=== PATIENT | female | born 1975 | race Caucasian/White ===

== ENCOUNTER 2020-10-07 10:00 | Outpatient (REF) | payer OTHER, SELFPAY ==
[2020-10-08 18:56] LABS: EBV-NA IgG Index <18.00 U/mL; EBV-VCA IgM Ab <36.00 U/mL
== END 2020-10-07 10:01 | disposition home or self-care (01) ==
LOC: HO.MANLDS 10:00
PROVIDERS: PCP Physician Assistant; Visit Provider Physician Assistant
DX: R76.8 Other specified abnormal immunological findings in serum (principal)
CPT/HCPCS: 86664; 86665

== ENCOUNTER 2020-11-10 10:40 | Emergency (ER) | payer MEDICAID, SELFPAY ==
[2020-11-10 11:15] VITALS: BP 127/82; PULSE 63; RESP 16; TEMP 36.8; O2SAT 97; BMI 37.4
--- NOTE | 2020-11-10 11:30 | XR_ITS ---
EXAMINATION: XR ANKLE, RIGHT CLINICAL INFORMATION: Right ankle pain and swelling status post fall. COMPARISON: None TECHNIQUE: AP, lateral, and mortise views of the right ankle. FINDINGS: The ankle joint and mortise are intact. There is no acute fracture or dislocation. The tarsal bones are normally aligned. There is a very small plantar calcaneal spur. Mild soft tissue swelling is seen. XR/XR ankle RT min 3V IMPRESSION: Mild soft tissue swelling and very small plantar calcaneal spur. No overt acute underlying osseous abnormality.
--- NOTE | 2020-11-10 11:55 | ED.LOWEXIN ---
HPI - Extremity Injury (Lower) General Chief Complaint: Extremity Injury, Lower Stated Complaint: fall, ankle pain Time Seen by Provider: 11/10/20 11:30 Source: patient Mode of arrival: ambulatory Limitations: no limitations History of Present Illness HPI Narrative: 45 y/o female presenting with right ankle pain after slip and fall on [address]. She states she was carrying a 50 lb bag of pellets for her stove and she slipped on ice. She doesn't recall if she inverted or everted the ankle. She has had lateral ankle pain since with difficulty ambulating. She states the pain radiates up the side of her calf. She has been using ice, elevating when possible and taking Motrin without improvement. MD complaint: ankle injury Onset (ago): day(s) (5) Injury: Right: ankle Type of Injury: unknown Place: home Severity: moderate Severity scale (1-10): 6 Relieving factors: immobilization and rest Exacerbating factors: weight bearing, movement and palpation Context: fall Associated symptoms: swelling and able to partially bear weight Other symptoms: none Treatments prior to arrival: cold therapy and NSAIDS Related Data Home Medications Medication Instructions Recorded Confirmed Vitamin D3 11/10/20 Zoloft 11/10/20 Previous Rx's Medication Instructions Recorded ibuprofen 600 mg PO Q8H PRN #20 tab 11/10/20 oxycodone 5 mg PO Q6H PRN #8 tab 11/10/20 Allergies Allergy/AdvReac Type Severity Reaction Status Date / Time nut - unspecified Allergy Anaphylaxis Verified 11/10/20 11:21 Review of Systems Review of Systems: Constitutional: No Fever, No Chills Musculoskeletal: + joint pain, + Myalgias Skin: No Skin Lesions, No rash Neuro: No Weakness, No Numbness Psych: No Anxiety/Panic, No Depression Heme/Lymph: No Bruising PMFSH Past Medical History Attestation statement: The following information was validated with the patient. Medical History No known health problems Social History Social History Advance Directives: No Advance Directives Information Provided: No Physical Exam Vital Signs: Vital Signs: Last Vital Signs Temp 98.3 F 11/10/20 11:15 Pulse 63 11/10/20 11:15 Resp 16 11/10/20 11:15 BP 127/82 11/10/20 11:15 Pulse Ox 97 11/10/20 11:15 Body Mass Index 37.4 Appearance: Alert. Oriented X3. No acute distress. HEENT: normal inspection CVS: Normal heart rate and rhythm. Pulses normal. Respiratory: No respiratory distress. Skin: Skin warm and dry. Normal skin color. Normal skin turgor. No rashes. Extremities: right ankle with lateral swelling, no deformity. tenderness below lateral malleolus. cool to touch with 1+ DP pulse. NV intact distally. Poor dorsiflexion and plantar flexion due to pain. Neuro: Oriented X 3. No motor deficit. No sensory deficit. Course Course Course Narrative: 45 y/o female presenting with right ankle pain after slip on ice 5 days ago. XR pending to assess for fracture. Reevaluation(s) Reevaluation #1: XR negative for any acute fracture - mild soft tissue swelling with very small plantar calcaneal spur. Will place in MITESH wrap for comfort and give crutches as needed. Recommend follow up with Orthopedics if pain persists. Patient has been counseled and is stable for discharge. Critical Care Time Critical Care Time Critical Care Time: No Discharge Plan Discharge Clinical Impression: Ankle sprain and strain Patient Disposition: Home, Self-Care Instructions: Ankle Sprain (ED) Additional Instructions: Your x-ray today did not show any acute fractures. You may bear weight as tolerated. Use crutches as needed. Ice and elevate your ankle when possible. Follow up with Orthopedics if the pain persists. Follow up with your doctor this week. Prescriptions: New ibuprofen 600 mg tablet 600 mg PO Q8H PRN (Reason: pain) Qty: 20 RF: 0 oxycodone 5 mg tablet 5 mg PO Q6H PRN (Reason: pain) Qty: 8 RF: 0 No Action Vitamin D3 RF: 0 Zoloft RF: 0 Referrals: Wicho Stevens MD [Physician] - 1 week (ankle pain)
[2020-11-10] MEDS: Ibuprofen 600 MG TABLET PO (13:15)
[2020-11-10] MEDS: oxyCODONE HCl Immed Release 5 MG TABLET PO (13:15)
== END 2020-11-10 14:01 | disposition home or self-care (01) ==
PROVIDERS: Emergency Provider Emergency Medicine Emergency Medical Services; PCP Physician Assistant
DX: S93.401A Sprain of unspecified ligament of right ankle, initial encounter (principal); M25.571 Pain in right ankle and joints of right foot; W00.0XXA Fall on same level due to ice and snow, initial encounter; Y93.01 Activity, walking, marching and hiking; Y92.007 Garden or yard of unspecified non-institutional (private) residence as the place of occurrence of the external cause; Y99.9 Unspecified external cause status
CPT/HCPCS: 73610; 99283

== ENCOUNTER 2021-06-04 14:08 | Outpatient (REF) | payer MEDICAID, SELFPAY ==
[2021-06-04 17:45] LABS: Hematocrit 44.4 % (37-47); Hemoglobin 14.9 g/dl (12.0-16.0); Mean Corpuscular HGB Conc 33.6 g/dl (31.0-35.0); Mean Corpuscular Hemoglobin 30.7 pg (27.0-33.0); Mean Corpuscular Volume 91.5 fL (80-98); Mean Platelet Volume 10.1 fL (9.4-12.3); Platelet Count 295 X10*3/uL (160-400); Red Blood Count 4.85 X10*6/uL (4.20-5.50); Red Cell Distribution Width 13.3 % (11.0-16.0); White Blood Count 11.4 X10*3/uL (4.8-10.8)
[2021-06-04 17:57] LABS: Alanine Aminotransferase 32 U/L (0-31); Albumin Level 4.3 g/dL (3.5-5.0); Alkaline Phosphatase 75 U/L (39-117); Anion Gap 13 (12-20); Aspartate Amino Transferase 20 U/L (5-31); Bilirubin Total 0.3 mg/dL (0.0-1.0); Blood Urea Nitrogen 11 mg/dL (9-16); Calcium 9.4 mg/dL (8.4-10.2); Carbon Dioxide 27 mmol/L (22-29); Chloride 104 mmol/L (96-108); Estimated Glomerular Filt Rate > 60; Glucose Random 115 mg/dL (60-115); Potassium 4.8 mmol/L (3.3-5.1); Sodium 139 mmol/L (135-145); Total Protein 7.4 g/dL (6.5-8.0)
[2021-06-04 18:17] LABS: Thyroid Stimulating Hormone 0.67 uIU/mL (0.32-4.0); Vitamin D 25-OH Total 38.5 ng/mL (>30)
== END 2021-06-04 14:09 | disposition home or self-care (01) ==
LOC: HO.MANLDS 14:08
PROVIDERS: PCP Internal Medicine; Visit Provider Internal Medicine
DX: F32.9 Major depressive disorder, single episode, unspecified (principal)
CPT/HCPCS: 36415; 80053; 82306; 84443; 85027

== ENCOUNTER 2021-07-06 09:41 | Outpatient (REF) | payer MEDICAID, SELFPAY ==
--- NOTE | ~2021-07-06 | MM_ITS ---
EXAMINATION: MM SCREENING DIGITAL BREAST TOMOSYNTHESIS, BILATERAL CLINICAL INFORMATION: Screening. Asymptomatic. The lifetime risk of breast cancer based on the Tyrer-Cuzick Model is 12%. COMPARISON: Mammography: 06/18/2020 (baseline) TECHNIQUE: Digital breast tomosynthesis is performed in both the craniocaudal and mediolateral oblique views along with computer-aided detection (CAD). Synthesized 2D images are generated from the tomosynthesis. FINDINGS: There are scattered areas of fibroglandular density (ACR BI-RADS breast composition Category b). There are no significant masses, abnormal calcifications, or other abnormalities. Incidental low right axillary tail node again seen right MLO view. The skin contours are smooth. No significant changes. MM/MM tomosynthesis screening BI IMPRESSION: No mammographic evidence of malignancy. ASSESSMENT: BI-RADS 1: Negative RECOMMENDATION: Routine annual mammography screening. This patient's information was entered into a reminder system with a target due date for their next mammogram.
== END 2021-07-06 09:42 | disposition home or self-care (01) ==
LOC: HO.MAMMO 09:41
PROVIDERS: Visit Provider Internal Medicine
DX: Z12.31 Encounter for screening mammogram for malignant neoplasm of breast (principal)
CPT/HCPCS: 77063; 77067

== ENCOUNTER 2021-09-16 08:03 | Emergency (ER) | payer MEDICAID, SELFPAY ==
--- NOTE | ~2021-09-16 | US_ITS ---
EXAMINATION: US VENOUS WITH DOPPLER UPPER EXTREMITY, LEFT CLINICAL INFORMATION: Axillary and arm pain after receiving Moderna vaccine. COMPARISON: No similar priors. TECHNIQUE: Ultrasound of the upper extremity is performed using compression sonography and color and pulse Doppler flow with assessment of augmentation of flow. There is also imaging and Doppler assessment of the jugular and subclavian veins. Spectral analysis with color-flow imaging is performed. FINDINGS: Respiratory variation, normal compression, and augmented flow are noted throughout the upper extremity including the axillary and brachial veins. There is normal flow in the internal jugular and subclavian veins. There is no visible deep or superficial thrombophlebitis. There are a few enlarged left axillary lymph nodes, the largest measuring 1.4 x 1.2 x 1.5 cm. These lymph nodes demonstrate preserved fatty hilum and are likely reactive in nature. If the patient's symptoms progress, a followup ultrasound in 5 -7 days might be of value to exclude proximal propagation from a nonvisualized distal arm vein. US/US venous duplex UE LT IMPRESSION: No DVT demonstrated in the visualized veins of the left upper extremity. Of note, the radial and ulnar veins of the forearm were not evaluated in this study. There are several enlarged left axillary lymph nodes which are likely reactive in the setting of recent vaccine. If symptoms progress or pain persists, consider a follow-up ultrasound in 5-7 days.
[2021-09-16 08:13] VITALS: BP 135/81; PULSE 66; RESP 18; TEMP 36.8; O2SAT 99; BMI 37.4
--- NOTE | 2021-09-16 08:55 | ED_ITS ---
HPI - Extremity Problem General Chief complaint: Skin/Abscess/Foreign Body Stated complaint: L ARM AND ARM PIT AND BEAST INFLAMED Time Seen by Provider: 09/16/21 08:46 Source: patient Mode of arrival: ambulatory Limitations: no limitations History of Present Illness HPI Narrative: 46-year-old female with no significant past medical history presenting to the ED with complaints of left axillary/arm pain after she r eceived the Moderna will start vaccine on Monday. She reports that the pain is radiating down to her left forearm. She reports that it is very severe at the left armpit and this morning she noticed that she had some redness in her armpit. She reports she was fully vaccinated with the Pzifer vaccine a few months ago and she had many adverse effects from it but nothing like what she is experiencing for the past 3 days. She denies any fevers, chills, dizziness, headaches, chest pain or shortness of breath, dyspnea on exertion, orthopnea, palpitations, history of DVT or PE, recent surgery, recent immobilization, recent travel and a long plane/train/car ride, any estrogen usage, PVD disease, recent illness, history of gout or any other symptoms complaints concerns at this time. MD Complaint: extremity pain Onset (ago): day(s) (Three days) Pain Consistency: constant Location: left and upper extremity Severity scale (1-10): >10 Quality: aching and constant Radiation: distal Relieving factors: nothing Exacerbating factors: range of motion and palpation Associated symptoms: denies other symptoms Context: other (She received the booster for the maternal on Monday and since then has been having the symptoms) Related Data Home Medications Medication Instructions Recorded Confirmed Vitamin D3 11/10/20 Zoloft 11/10/20 Previous Rx's Medication Instructions Recorded ibuprofen 600 mg tablet 600 mg PO Q8H PRN #20 tab 11/10/20 oxycodone 5 mg tablet 5 mg PO Q6H PRN #8 tab 11/10/20 cyclobenzaprine 10 mg tablet 10 mg PO Q8H PRN #14 tab 09/16/21 hydrocodone 5 mg-acetaminophen 325 1 tab PO Q8H PRN #14 tab 09/16/21 mg tablet ibuprofen 800 mg tablet 800 mg PO Q8H PRN #14 tab 09/16/21 Allergies Allergy/AdvReac Type Severity Reaction Status Date / Time naproxen Allergy Vomiting Verified 09/16/21 09:04 nut - unspecified Allergy Anaphylaxis Verified 11/10/20 11:21 Review of Systems Review of Systems: Constitutional : No Weight loss, No Fever, No Chills, No Night Sweats, No Fatigue, No Malaise ENT/Mouth : No Hearing loss, No Ear Pain, No Nasal Congestion, No Sinus Pain, No Hoarseness, No sore throat, No Rhinorrhea, No Swallowing Difficulty Eyes: No Eye Pain, No Swelling, No Redness, No Foreign Body, No Discharge, No Vision Changes Cardiovascular : No Chest Pain, No SOB, No Dyspnea on Exertion, No Orthopnea, No Edema, No Palpitations Respiratory : No Cough, No Sputum, No Wheezing, No Smoke Exposure, No Dyspnea Gastrointestinal : No Nausea, No Vomiting, No Diarrhea, No Constipation, No abdominal Pain, No Hematochezia, No Melena Genitourinary : no irregular bleeding, No Dysuria, No Urinary Frequency, No Hematuria, No Urinary Incontinence, No Urgency, No Flank Pain, No Urinary Flow Changes, No Hesitancy Musculoskeletal : + left axillary/arm pain radiating to left forearm, No Myalgias, No Joint Swelling Skin : No Skin Lesions, No rash Neuro : No Weakness, No Numbness, No Paresthesias, No Loss of Consciousness, No Dizziness, No Headache Psych : No Anxiety/Panic, No Depression, No SI/HI/AH/VH, No Social Issues, Heme/Lymph: No Bruising, No Bleeding,No Lymphadenopathy Endocrine : No Polyuria, No Polydipsia, No Temperature Intolerance Yes all other systems are reviewed and are negative [facility] Past Medical History Attestation statement: The following information was validated with the patient. Medical History No known health problems Social History Social History Advance Directives: No Advance Directives Information Provided: Yes Patient : No Physical Exam Vital Signs: Vital Signs: Last Vital Signs Temp 98.2 F 09/16/21 08:13 Pulse 66 09/16/21 08:13 Resp 18 09/16/21 08:13 BP 135/81 09/16/21 08:13 Pulse Ox 99 09/16/21 08:13 Body Mass Index 37.4 vital signs have been reviewed as normal and appeared to be correct. Blood pressure normal Heart rate normal. Respiration rate normal. Temperature normal. Oxygen saturation normal. Appearance: Alert. Oriented X3. No acute distress. Head: Normal external exam. Normocephalic. Atraumatic. Eyes: PERRLA. EOMI. Conjunctiva and sclera normal. Eyelids normal. ENT: Pharynx normal. Uvula midline. Moist mucous membranes. Neck: Normal inspection. Neck supple. FROM. CVS: Normal heart rate and rhythm. Respiratory: No respiratory distress. Painless inspiration. Skin: Skin warm and dry. Normal skin color. Normal skin turgor. No rashes/lesions/lacerations noted. Extremities: To left axillary patient has moderate tenderness palpation no obvious signs of infection no erythema/streaking/induration/fluctuance no lymphadenopathy noted on my exam. She has full range of motion of the left shoulder/forearm. She does have pain when I palpate down the arm to the forearm. No obvious ligamentous or tendon injury. No upper or lower extremity edema noted. Otherwise all other Extremities exhibit normal range of motion and nontender. Neuro: Oriented X 3. No motor deficit. No sensory deficit. Reflexes normal. Normal steady gait. No focal neuro deficits noted. Vascular: + radial pulses/+ 2 distal pedal pulses/+2 dorsalis pedis b/l. Normal cap refill. No cyanosis noted to upper extremity nails and lower extremity toes nails. Course Course Course Narrative: 9am - 46-year-old female with no significant past medical history presenting to the ED with complaints of left axillary/arm pain after she received the Moderna will start vaccine on Monday. She reports that the pain is radiating down to her left forearm. She reports that it is very severe at the left armpit and this morning she noticed that she had some redness in her armpit. She reports she was fully vaccinated with the Pzifer vaccine a few months ago and she had many adverse effects from it but nothing like what she is experiencing for the past 3 days. - On exam patient has tenderness palpation to left axillary radiating down to the left forearm and she does have reproducible tenderness she does have full range of motion no obvious ligamentous or tendon injury. No signs of infection. No upper extremity edema is noted. She has +2 radial pulses. Plan: Ultrasound of left upper extremity to evaluate for possible DVT and soft tissue ultrasound to evaluate for possible abscess or lymphadenopathy or any other acute processes. Although I believe this may be muscular in nature. Will provide symptomatic treatment with 500 mg naproxen, 5 mg of Beaver and 10 mg of Flexeril then re-evaluate. Reevaluation(s) Reevaluation #1: - ultrasound negative for DVT or abscess is only revealed reactive lymphadenopathy most likely related to the COVID vaccine she just received. Will DC home with symptomatic treatment instructions return if any new or worsening symptoms to follow up with primary care provider. Patient understands agrees with this plan. Time: 11:43 MDM - Extremity (Nontraumatic) Medical Records Attestation: I reviewed the patient's medical records. Lab Data Attestation: I reviewed the patient's lab results. Imaging Data Venous duplex ultrasound of left upper extremity and soft tissue of axillary area: Attestation: I personally reviewed and interpreted this imaging study as follows: Radiologist's impression: FINDINGS: Respiratory variation, normal compression, and augmented flow are noted throughout the upper extremity including the axillary and brachial veins. There is normal flow in the internal jugular and subclavian veins. There is no visible deep or superficial thrombophlebitis. There are a few enlarged left axillary lymph nodes, the largest measuring 1.4 x 1.2 x 1.5 cm. These lymph nodes demonstrate preserved fatty hilum and are likely reactive in nature. If the patient's symptoms progress, a followup ultrasound in 5 -7 days might be of value to exclude proximal propagation from a nonvisualized distal arm vein. US/US venous duplex UE LT IMPRESSION: No DVT demonstrated in the visualized veins of the left upper extremity. Of note, the radial and ulnar veins of the forearm were not evaluated in this study. ? There are several enlarged left axillary lymph nodes which are likely reactive in the setting of recent vaccine. ? If symptoms progress or pain persists, consider a follow-up ultrasound in 5-7 days. Discharge Plan Discharge Clinical Impression: Axillary lymphadenopathy, Adverse effect of COVID-19 vaccine Patient Disposition: Home, Self-Care Instructions: Lymphadenopathy (ED) Prescriptions: New cyclobenzaprine 10 mg tablet 10 mg PO Q8H PRN (Reason: Muscle spasm) Qty: 14 RF: 0 ibuprofen 800 mg tablet 800 mg PO Q8H PRN (Reason: pain) Qty: 14 RF: 0 hydrocodone-acetaminophen 5-325 mg tablet 1 tab PO Q8H PRN (Reason: pain) Qty: 14 RF: 0 No Action Vitamin D3 RF: 0 Zoloft RF: 0 ibuprofen 600 mg tablet 600 mg PO Q8H PRN (Reason: pain) Qty: 20 RF: 0 oxycodone 5 mg tablet 5 mg PO Q6H PRN (Reason: pain) Qty: 8 RF: 0 Referrals: Bryce Rolle MD [Primary Care Provider] - 2 days Print Language: Montenegrin
--- NOTE | 2021-09-16 09:09 | PC.NURSE ---
Pt states that she does not wish to take narcotics or muscle relaxers at this time as she does not have a ride and can be very sensitive to meds. She also has had vomiting woth naproxen in the past. Allergies updated and provider notified. Ibuprofen an tylenol ordered. Pt states that she does well with ibuprofen at home.
[2021-09-16] MEDS: Acetaminophen 325 MG TABLET 975 MG PO (09:14)
[2021-09-16] MEDS: Ibuprofen 800 MG TABLET PO (09:15)
== END 2021-09-16 11:58 | disposition home or self-care (01) ==
PROVIDERS: Emergency Provider Emergency Medicine; PCP Internal Medicine
DX: R59.0 Localized enlarged lymph nodes (principal); T50.B95A Adverse effect of other viral vaccines, initial encounter; Y92.9 Unspecified place or not applicable; M79.602 Pain in left arm
CPT/HCPCS: 93971; 99284

== ENCOUNTER 2021-11-17 10:26 | Emergency (ER) | payer MEDICAID, SELFPAY | END 2021-11-17 14:00 | disposition left against medical advice (07) | PROVIDERS: Emergency Provider Emergency Medicine; PCP Internal Medicine | DX: M79.646 Pain in unspecified finger(s) (principal) ==

== ENCOUNTER 2021-11-18 08:49 | Emergency (ER) | payer MEDICAID, SELFPAY ==
--- NOTE | ~2021-11-18 | XR_ITS ---
EXAMINATION: XR HAND, RIGHT CLINICAL INFORMATION: Swelling and pain mostly involving the first finger. COMPARISON: None TECHNIQUE: PA, lateral, and oblique views of the right hand. FINDINGS: There is no evidence of acute fracture or dislocation of the right hand. Right hand joint spaces are maintained. No erosive changes are evident. There is soft tissue prominence seen overlying the dorsum of the metacarpals. XR/XR hand RT min 3V IMPRESSION: No acute bony abnormality of the right hand identified. What appears to be edema overlying the dorsum of the metacarpals.
[2021-11-18 08:53] VITALS: BP 146/80; PULSE 66; RESP 18; TEMP 36.6; O2SAT 99; BMI 33.3
--- NOTE | 2021-11-18 09:10 | ED.EXTPRO ---
HPI - Extremity Problem General Chief complaint: Extremity Injury, Upper Stated complaint: fell on ice right hand pain Time Seen by Provider: 11/18/21 09:10 Source: patient Limitations: no limitations History of Present Illness HPI Narrative: Patient presents to the ER complaining of right hand pain after fall on the ice yesterday. Patient states she slipped and put her hand down on to a plant pot. Pain is 8/10 increased with palpation range of motion pain is located at the base of the thenar positive slight bruising has noticed. Pain is aching in nature no prior history or fractures to that extremity. Symptoms are [id number]. No other complaints Related Data Home Medications Medication Instructions Recorded Confirmed Vitamin D3 11/10/20 Zoloft 11/10/20 Previous Rx's Medication Instructions Recorded ibuprofen 600 mg tablet 600 mg PO Q8H PRN #20 tab 11/10/20 oxycodone 5 mg tablet 5 mg PO Q6H PRN #8 tab 11/10/20 cyclobenzaprine 10 mg tablet 10 mg PO Q8H PRN #14 tab 09/16/21 hydrocodone 5 mg-acetaminophen 325 1 tab PO Q8H PRN #14 tab 09/16/21 mg tablet ibuprofen 800 mg tablet 800 mg PO Q8H PRN #14 tab 09/16/21 Allergies Allergy/AdvReac Type Severity Reaction Status Date / Time naproxen Allergy Vomiting Verified 09/16/21 09:04 nut - unspecified Allergy Anaphylaxis Verified 11/10/20 11:21 Review of Systems Constitutional: Constitutional: Denies chills, Denies fever(s) and Denies frequent falls Eyes: Eyes: Denies diplopia Cardiovascular: Cardiovascular: Denies chest pain and Denies dyspnea Respiratory: Respiratory: Denies dyspnea Musculoskeletal: Musculoskeletal: Denies deformity Comments: Right hand pain Neurologic: Denies frequent falls [facility] Past Medical History Attestation statement: The following information was validated with the patient. Social History Social History Advance Directives: No Advance Directives Information Provided: No Physical Exam Vital Signs: Vital Signs: Last Vital Signs Temp 98 F 11/18/21 08:53 Pulse 66 11/18/21 08:53 Resp 18 11/18/21 08:53 BP 146/80 H 11/18/21 08:53 Pulse Ox 99 11/18/21 08:53 BMI result Body Mass Index 33.3 vital signs have been reviewed as normal and appeared to be correct. Blood pressure normal. Heart rate normal. Respiration rate normal. Temperature normal. Oxygen saturation normal. Appearance: Alert. Oriented X3. No acute distress. Head: Normal external exam. Normocephalic. Atraumatic. No Long signs noted. No raccoon eyes noted Eyes: PERRLA. EOMI ENT: Pharynx normal. Uvula midline. Moist mucous membranes. Neck: Soft full range of motion CVS: Heart regular rate and rhythm no murmurs and rubs Respiratory: Breath sounds are clear to auscultation bilaterally. No accessory muscle use noted. Back:Full range of motion noted. Skin: Skin warm and dry right hand has some ecchymosis noted in the thenar. Extremities: Minimal tenderness to the distal radius tenderness extends into the thenar of the right pulmonary positive ecchymosis noted pain increases with hadoop architect and range of motion. Neuro: Oriented X 3. No motor deficit. No sensory deficit. Course Course Course Narrative: Right hand fracture Contusion Right wrist fracture Sprain X-rays pending 9:39 a.m. x-ray reviewed with patient negative for fracture likely some pain secondary to contusion MDM - Extremity (Nontraumatic) Imaging Data hand: Radiologist's impression: [address] [address] XRay Report Signed Patient: Alicia Reese MR#: [id number] : 1975 Acct:[id number] Age/Sex: 46 / F ADM Date: 11/18/21 Loc: HO.ED Attending Dr: Ordering Physician: Partha Fritz DO Date of Service: 11/18/21 Procedure(s): XR hand RT min 3V Accession Number(s): [id number] cc: Partha Fritz DO~ EXAMINATION: XR HAND, RIGHT CLINICAL INFORMATION: Swelling and pain mostly involving the first finger.? COMPARISON: None? TECHNIQUE: PA, lateral, and oblique views of the right hand. FINDINGS: There is no evidence of acute fracture or dislocation of the right hand. Right hand joint spaces are maintained. No erosive changes are evident. There is soft tissue prominence seen overlying the dorsum of the metacarpals.? XR/XR hand RT min 3V IMPRESSION: No acute bony abnormality of the right hand identified. ? What appears to be edema overlying the dorsum of the metacarpals. Dictated By: Bobby Ott MD Signed By: <Electronically signed by Bobby Ott MD in [place]> 11/18/21924 DD/ 4 TD/TT:? Chemical Detection Expert: SK Discharge Plan Discharge Clinical Impression: Contusion of hand Qualifiers: Encounter type: initial encounter Laterality: right Qualified Code(s): S60.221A - Contusion of right hand, initial encounter Patient Disposition: Home, Self-Care Instructions: Contusion in Adults (ED) Additional Instructions: X-ray showed no obvious fractures Rest ice elevation Use sling If pain continues call PCP for referral to Hand Dr. continue [id number] Motrin at home Prescriptions: No Action Vitamin D3 RF: 0 Zoloft RF: 0 ibuprofen 600 mg tablet 600 mg PO Q8H PRN (Reason: pain) Qty: 20 RF: 0 oxycodone 5 mg tablet 5 mg PO Q6H PRN (Reason: pain) Qty: 8 RF: 0 cyclobenzaprine 10 mg tablet 10 mg PO Q8H PRN (Reason: Muscle spasm) Qty: 14 RF: 0 ibuprofen 800 mg tablet 800 mg PO Q8H PRN (Reason: pain) Qty: 14 RF: 0 hydrocodone-acetaminophen 5-325 mg tablet 1 tab PO Q8H PRN (Reason: pain) Qty: 14 RF: 0
== END 2021-11-18 09:55 | disposition home or self-care (01) ==
PROVIDERS: Emergency Provider Student in an Organized Health Care Education/Training Program
DX: S60.221A Contusion of right hand, initial encounter (principal); W00.0XXA Fall on same level due to ice and snow, initial encounter; Y93.01 Activity, walking, marching and hiking; Y92.017 Garden or yard in single-family (private) house as the place of occurrence of the external cause; Y99.9 Unspecified external cause status
CPT/HCPCS: 73130; 99283

== ENCOUNTER 2021-11-23 11:10 | Outpatient (REF) | payer MEDICAID, SELFPAY ==
--- NOTE | ~2021-11-23 | XR_ITS ---
EXAMINATION: CR X-RAY HAND AND WRIST RIGHT CLINICAL INFORMATION: Right hand pain status post fall. COMPARISON: None TECHNIQUE: 4 views of the right hand and wrist were obtained. An arrow indicator points to the lateral right wrist. FINDINGS: There is no acute fracture or dislocation. The joint spaces are unremarkable. The carpal bones are normally aligned. The distal radius and ulna are intact. The soft tissues are unremarkable. No radiopaque foreign body is seen. XR/XR hand wrist RT IMPRESSION: Unremarkable right hand/wrist.
== END 2021-11-23 11:11 | disposition home or self-care (01) ==
LOC: HO.XRAY 11:10
PROVIDERS: PCP Internal Medicine; Visit Provider Physician Assistant
DX: M79.641 Pain in right hand (principal)
CPT/HCPCS: 73110; 73130

== ENCOUNTER 2021-12-08 07:22 | Outpatient (REF) | payer MEDICAID, SELFPAY ==
--- NOTE | ~2021-12-08 | MR_ITS ---
EXAMINATION: MR WRIST WITHOUT CONTRAST, RIGHT CLINICAL INFORMATION: Right wrist and hand pain and swelling. Pain at the heel of the palm radiating into the thumb. Fall in November 2021. Evaluate for occult fracture, sprain, or tear. COMPARISON: None TECHNIQUE: MRI of the wrist was performed using routine sequences on a high-field scanner. FINDINGS: TRIANGULAR FIBROCARTILAGE: Punctate full-thickness defect through the central radial aspect of the triangular fibrocartilage complex measuring 0.1 cm in ML dimension (coronal image 13/24). INTRINSIC LIGAMENTS: Intact. TENDONS/MEDIAN NERVE: Intact. ARTICULAR CARTILAGE/BONE: Focal articular cartilage signal heterogeneity and surface irregularity at the proximal aspect of the lunate with mild underlying degenerative cystic change. No acute fracture or dislocation. Normal carpal alignment. JOINT FLUID/SOFT TISSUES: Small to moderate distal radial ulnar joint effusion. MR/MR wrist RT wo con IMPRESSION: 1. Punctate full-thickness tear through the central radial aspect of the triangle fibrocartilage complex. Small to moderate distal radial ulnar joint effusion. 2. No acute fracture or dislocation. Specifically, the scaphoid is intact. 3. Mild arthrosis at the proximal aspect of the lunate with underlying degenerative cystic change.
== END 2021-12-08 07:23 | disposition home or self-care (01) ==
LOC: HO.MRI 07:22
PROVIDERS: PCP Internal Medicine; Visit Provider Physician Assistant
DX: M25.531 Pain in right wrist (principal)
CPT/HCPCS: 73221

== ENCOUNTER 2022-04-06 12:53 | Outpatient (REF) | payer MEDICAID, SELFPAY ==
--- NOTE | ~2022-04-06 | XR_ITS ---
EXAMINATION: XR FACIAL BONES CLINICAL INFORMATION: Facial swelling, sinusitis, mass and lump COMPARISON: None TECHNIQUE: 5 views of the facial bones were obtained. FINDINGS: The visualized paranasal sinuses appear well-aerated, without radiographic evidence of significant opacification. No acute fractures seen. No abnormal soft tissue calcific location is identified. XR/XR facial bones min 3V IMPRESSION: No significant sinus opacification is evident by x-ray. Further evaluation with CT scan as clinically warranted.
[2022-04-06 13:13] LABS: MANUAL DIFF FLAG NO
[2022-04-06 14:19] LABS: Basophils Absolute Auto 0.1 X10*3/uL (0.0-0.2); Basophils Percent Auto 0.9 % (0-2); Eosinophils Absolute Auto 0.2 X10*3/uL (0.0-0.4); Eosinophils Percent Auto 2.3 % (0-4); Hematocrit 39.1 % (37.0-47.0); Hemoglobin 13.1 g/dl (12.0-16.0); Imm Gran Abs Auto 0.03 X10*3/uL (0.00-0.03); Imm Gran Pct Auto 0.3 % (0.0-0.4); Lymphocytes Absolute Auto 3.4 X10*3/uL (1.2-4.9); Lymphocytes Percent Auto 35.5 % (20-40); Mean Corpuscular HGB Conc 33.5 g/dl (31.0-35.0); Mean Corpuscular Volume 92.4 fL (80.0-98.0); Mean Platelet Volume 10.3 fL (9.4-12.3); Monocytes Absolute Auto 0.5 X10*3/uL (0.1-1.2); Monocytes Percent Auto 5.5 % (2-11); Neutrophils Absolute Auto 5.3 x10*3/uL (2.0-8.3); Neutrophils Percent Auto 55.5 % (45-73); Platelet Count 254 X10*3/uL (160-400); Red Blood Count 4.23 X10*6/uL (4.20-5.50); Red Cell Distribution Width 13.4 % (11.0-16.0); White Blood Count 9.5 X10*3/uL (4.8-10.8)
[2022-04-06 14:48] LABS: Alanine Aminotransferase 18 U/L (0-31); Albumin Level 3.8 g/dL (3.5-5.0); Alkaline Phosphatase 69 U/L (39-117); Anion Gap 10 (12-20); Aspartate Amino Transferase 17 U/L (5-31); Bilirubin Total 0.2 mg/dL (0.0-1.0); Blood Urea Nitrogen 11 mg/dL (9-16); C Reactive Protein 1.11 mg/dL (< or = 0.50); Calcium 8.9 mg/dL (8.4-10.2); Carbon Dioxide 26 mmol/L (22-29); Chloride 107 mmol/L (96-108); Estimated Glomerular Filt Rate > 60; Glucose Random 103 mg/dL (60-115); Sodium 138 mmol/L (135-145); Total Protein 6.5 g/dL (6.5-8.0)
[2022-04-06 15:00] LABS: Erythrocyte Sedimentation Rate 8 MM/HR (0-20)
== END 2022-04-06 12:54 | disposition home or self-care (01) ==
LOC: HO.XRAY 12:53
PROVIDERS: PCP Internal Medicine; Visit Provider Physician Assistant
DX: R22.0 Localized swelling, mass and lump, head (principal)
CPT/HCPCS: 36415; 70150; 80053; 85025; 85652; 86140

== ENCOUNTER 2022-04-07 08:49 | Emergency (ER) | payer MEDICAID, SELFPAY ==
[2022-04-07 09:22] VITALS: BP 133/48; PULSE 51; RESP 18; TEMP 36.6; O2SAT 99; BMI 36.6
--- NOTE | 2022-04-07 11:55 | ED_ITS ---
HPI - URI/Sore Throat General Chief Complaint: General Medical Stated Complaint: swollen face, headache Time Seen by Provider: 04/07/22 11:47 Source: patient Mode of arrival: ambulatory Limitations: no limitations History of Present Illness MD elicited complaint: rhinorrhea, nasal congestion and sinus pain Onset (ago): week(s) (1-2) Consistency: constant and progressively worsening Severity: moderate Description of mucous: clear, watery and yellow Able to tolerate fluids by mouth: Yes Exacerbating factors: leaning forward Relieving factors: nothing Associated symptoms: headache, rhinorrhea and nasal congestion Treatments prior to arrival: other (She reports that she took a Sudafed last night) Related Data Home Medications Medication Instructions Recorded Confirmed Vitamin D3 11/10/20 Zoloft 11/10/20 Previous Rx's Medication Instructions Recorded ibuprofen 600 mg tablet 600 mg PO Q8H PRN #20 tab 11/10/20 oxycodone 5 mg tablet 5 mg PO Q6H PRN #8 tab 11/10/20 cyclobenzaprine 10 mg tablet 10 mg PO Q8H PRN #14 tab 09/16/21 hydrocodone 5 mg-acetaminophen 325 1 tab PO Q8H PRN #14 tab 09/16/21 mg tablet ibuprofen 800 mg tablet 800 mg PO Q8H PRN #14 tab 09/16/21 amoxicillin 875 mg-potassium 1 tab PO BID 10 Days #20 tab 04/07/22 clavulanate 125 mg tablet guaifenesin 600 mg tablet, 600 mg PO Q12H PRN #14 tab 04/07/22 extended release 12 hr (Mucinex) prednisone 20 mg tablet 20 mg PO DAILY 5 Days #5 tab 04/07/22 Allergies Allergy/AdvReac Type Severity Reaction Status Date / Time naproxen Allergy Vomiting Verified 04/07/22 09:22 nut - unspecified Allergy Anaphylaxis Verified 04/07/22 09:22 Review of Systems Review of Systems: Constitutional : No Weight loss, No Fever, No Chills, No Night Sweats, No Fatigue, No Malaise ENT/Mouth : + nasal congestion/rhinorrhea/sinus pain, No Hearing loss, No Ear Pain, No Hoarseness, No sore throat, No Swallowing Difficulty Eyes: No Eye Pain, No Swelling, No Redness, No Foreign Body, No Discharge, No Vision Changes Cardiovascular : No Chest Pain, No SOB, No Dyspnea on Exertion, No Orthopnea, No Edema, No Palpitations Respiratory : No Cough, No Sputum, No Wheezing, No Smoke Exposure, No Dyspnea Gastrointestinal : No Nausea, No Vomiting, No Diarrhea, No Constipation, No abdominal Pain, No Hematochezia, No Melena Genitourinary : no irregular bleeding, No Dysuria, No Urinary Frequency, No Hematuria, No Urinary Incontinence, No Urgency, No Flank Pain, No Urinary Flow Changes, No Hesitancy Musculoskeletal : No joint pain, No Myalgias, No Joint Swelling Skin : No Skin Lesions, No rash Neuro : + intermittent headaches, No Weakness, No Numbness, No Paresthesias, No Loss of Consciousness, No Dizziness Psych : No Anxiety/Panic, No Depression, No SI/HI/AH/VH, No Social Issues, Heme/Lymph: No Bruising, No Bleeding,No Lymphadenopathy Endocrine : No Polyuria, No Polydipsia, No Temperature Intolerance Yes all other systems are reviewed and are negative [facility] Past Medical History Attestation statement: The following information was validated with the patient. Physical Exam Vital Signs: Vital Signs: Last Vital Signs Temp 97.8 F 04/07/22 09:22 Pulse 51 04/07/22 09:22 Resp 18 04/07/22 09:22 BP 133/48 L 04/07/22 09:22 Pulse Ox 99 04/07/22 09:22 BMI result Body Mass Index 36.6 vital signs have been reviewed as normal and appeared to be correct. Blood pressure 133/48. Heart rate normal. Respiration rate normal. Temperature normal. Oxygen saturation normal. Appearance: Alert. Oriented X3. No acute distress. Head: Normal external exam. Normocephalic. Atraumatic. Eyes: PERRLA. EOMI. Conjunctiva and sclera normal. Eyelids normal. ENT: EAC normal. TM's Normal. Patient with frontal/ethmoid sinus pressure on palpation. Pharynx normal. Uvula midline. Moist mucous membranes. No lesions/ulcerations or masses noted on the tongue. Normal voice. No trismus noted. No drooling noted. No muffled voice noted. Dentation within normal limits. Neck: Normal inspection. Neck supple. FROM. No adenopathy. Thyroid Normal. No tracheal deviation noted. No crepitus is noted. No meningeal signs. No neck mass noted. No signs of trauma noted. CVS: Normal heart rate and rhythm. Heart sound normal. Pulses normal throughout. No murmurs/rales/gallops. Respiratory: No respiratory distress. Painless inspiration. Breath sounds normal. No wheezes/rales/rhonchi noted. Chest nontender. No crepitus is noted. No signs of trauma noted. No accessory muscle usage noted or decreased air movement noted. No signs of trauma. Back: Full range of motion noted. Skin: Skin warm and dry. Normal skin color. Normal skin turgor. No rashes/lesions/lacerations noted. Extremities: Extremities exhibit normal range of motion and nontender. Neuro: Oriented X 3. No motor deficit. No sensory deficit. Reflexes normal. Normal steady gait. No focal neuro deficits noted. CN's II-XII intact bilaterally? Vascular: + radial pulses/+ 2 distal pedal pulses/+2 dorsalis pedis b/l. Normal cap refill. No cyanosis noted to upper extremity nails and lower extremity toes nails. Course Course Course Narrative: 46-year-old female with most likely sinusitis. Will DC home with antibiotics and symptomatic treatment instructions return if any new or worsening symptoms follow up with primary care provider. She reports she already tested negative for COVID in the not on retesting. MDM - URI/Sore Throat Medical Records Attestation: I reviewed the patient's medical records. Discharge Plan Discharge Clinical Impression: Sinusitis Patient Disposition: Home, Self-Care Instructions: Sinusitis (ED) Prescriptions: New amoxicillin-pot clavulanate 875-125 mg tablet 1 tab PO BID 10 Days Qty: 20 0RF prednisone 20 mg tablet 20 mg PO DAILY 5 Days Qty: 5 0RF guaifenesin [Mucinex] 600 mg tablet extended release 12hr 600 mg PO Q12H PRN (Reason: congestion) Qty: 14 0RF No Action Vitamin D3 0RF Zoloft 0RF ibuprofen 600 mg tablet 600 mg PO Q8H PRN (Reason: pain) Qty: 20 0RF oxycodone 5 mg tablet 5 mg PO Q6H PRN (Reason: pain) Qty: 8 0RF cyclobenzaprine 10 mg tablet 10 mg PO Q8H PRN (Reason: Muscle spasm) Qty: 14 0RF ibuprofen 800 mg tablet 800 mg PO Q8H PRN (Reason: pain) Qty: 14 0RF hydrocodone-acetaminophen 5-325 mg tablet 1 tab PO Q8H PRN (Reason: pain) Qty: 14 0RF Rx Instructions: Can be partially filled if patient request Referrals: Bryce Rolle MD [Primary Care Provider] - 2 days
[2022-04-07] MEDS: predniSONE 20 MG TABLET 60 MG PO (12:01)
[2022-04-07] MEDS: Acetaminophen 325 MG TABLET 975 MG PO (12:02)
[2022-04-07] MEDS: Amoxicillin/Potassium Clav 875 MG TABLET PO (12:02)
== END 2022-04-07 12:59 | disposition home or self-care (01) ==
LOC: HO.ED 12:16
PROVIDERS: Emergency Provider Emergency Medicine; PCP Internal Medicine
DX: J32.9 Chronic sinusitis, unspecified (principal); R51.9 Headache, unspecified
CPT/HCPCS: 99282; 99283

== ENCOUNTER 2022-07-12 07:20 | Outpatient (REF) | payer MEDICAID, SELFPAY ==
--- NOTE | ~2022-07-12 | MM_ITS ---
EXAMINATION: MM SCREENING DIGITAL BREAST TOMOSYNTHESIS, BILATERAL CLINICAL INFORMATION: Screening. Asymptomatic. The lifetime risk of breast cancer based on the Tyrer-Cuzick Model is 12.0%. COMPARISON: Mammography: July 06, 2021 and June 18, 2020 TECHNIQUE: Digital breast tomosynthesis is performed in both the craniocaudal and mediolateral oblique views along with computer-aided detection (CAD). Synthesized 2D images are generated from the tomosynthesis. FINDINGS: The breasts are almost entirely fatty (ACR BI-RADS breast composition Category a). There are no significant masses, abnormal calcifications, or other abnormalities. MM/MM tomosynthesis screening BI IMPRESSION: No significant changes from prior exam. ASSESSMENT: BI-RADS 1: Negative RECOMMENDATION: Routine annual mammography screening. This patient's information was entered into a reminder system with a target due date for their next mammogram.
== END 2022-07-12 07:21 | disposition home or self-care (01) ==
LOC: HO.MAMMO 07:20
PROVIDERS: PCP Internal Medicine; Visit Provider Internal Medicine
DX: Z12.31 Encounter for screening mammogram for malignant neoplasm of breast (principal)
CPT/HCPCS: 77063; 77067

== ENCOUNTER 2022-09-05 09:58 | Emergency (ER) | payer MEDICAID, SELFPAY ==
--- NOTE | ~2022-09-05 | XR_ITS ---
EXAMINATION: XR CHEST CLINICAL INFORMATION: Chest pain COMPARISON: None TECHNIQUE: 2 views of the chest were obtained. FINDINGS: Lungs are clear. No focal consolidation or mass. Normal pulmonary vascularity. No pleural effusion or pneumothorax. Normal heart size. No acute osseous abnormality. XR/XR chest 2V IMPRESSION: No acute pulmonary disease.
--- NOTE | 2022-09-05 09:59 | ECG_ITS ---
Test Reason : chest pain Blood Pressure : / mmHG Vent. Rate : 067 BPM Atrial Rate : 067 BPM P-R Int : 142 ms QRS Dur : 086 ms QT Int : 386 ms P-R-T Axes : 041 011 056 degrees QTc Int : 407 ms Normal sinus rhythm Normal ECG No previous ECGs available Referred By: Generic ED Physician Electronically Signed By:CORBIN PINEDA MD
[2022-09-05 10:31] VITALS: BP 159/84; PULSE 65; RESP 20; TEMP 36.6; O2SAT 97; BMI 36.6
[2022-09-05 13:51] VITALS: BP 107/57; PULSE 51; RESP 16; O2SAT 97
[2022-09-05 13:51] LABS: MANUAL DIFF FLAG NO
[2022-09-05 13:55] LABS: Basophils Absolute Auto 0.1 X10*3/uL (0.0-0.2); Basophils Percent Auto 0.5 % (0-2); Eosinophils Absolute Auto 0.2 X10*3/uL (0.0-0.4); Eosinophils Percent Auto 2.1 % (0-4); Hematocrit 46.8 % (37.0-47.0); Hemoglobin 15.6 g/dl (12.0-16.0); Imm Gran Abs Auto 0.06 X10*3/uL (0.00-0.03); Imm Gran Pct Auto 0.5 % (0.0-0.4); Lymphocytes Absolute Auto 3.2 X10*3/uL (1.2-4.9); Lymphocytes Percent Auto 27.8 % (20-40); Mean Corpuscular HGB Conc 33.3 g/dl (31.0-35.0); Mean Corpuscular Hemoglobin 29.5 pg (27.0-33.0); Mean Corpuscular Volume 88.5 fL (80.0-98.0); Mean Platelet Volume 9.6 fL (9.4-12.3); Monocytes Absolute Auto 0.7 X10*3/uL (0.1-1.2); Monocytes Percent Auto 6.3 % (2-11); Neutrophils Absolute Auto 7.2 x10*3/uL (2.0-8.3); Neutrophils Percent Auto 62.8 % (45-73); Platelet Count 258 X10*3/uL (160-400); Red Blood Count 5.29 X10*6/uL (4.20-5.50); Red Cell Distribution Width 13.2 % (11.0-16.0); White Blood Count 11.5 X10*3/uL (4.8-10.8)
[2022-09-05 14:06] LABS: Anion Gap 16 (12-20); Blood Urea Nitrogen 11 mg/dL (9-16); Calcium 9.2 mg/dL (8.4-10.2); Carbon Dioxide 24 mmol/L (22-29); Chloride 105 mmol/L (96-108); Creatinine Clr Calc Pharmacy 105.9; Estimated Glomerular Filt Rate > 60; Glucose Random 92 mg/dL (60-115); Potassium 4.6 mmol/L (3.3-5.1); Sodium 140 mmol/L (135-145)
[2022-09-05 14:13] LABS: Troponin-I High Sensitivity < 3.5 ng/L (<3.5-17.0)
--- NOTE | 2022-09-05 16:36 | ED_ITS ---
HPI - Chest Pain General Chief Complaint: Chest Pain Stated Complaint: chest pain Time Seen by Provider: 09/05/22 16:36 Source: patient Mode of arrival: ambulatory Limitations: no limitations History of Present Illness HPI narrative: 47 yo female with history of chronic Jasson Pradhan Virus with chronic fatigue who presents to the ER for evaluation of left lower lung pain, chest pain and back pain that started a few days ago. She reports she has been on Ciprofloxacin for a sinus infection for the last 6 days. Her sinus symptoms are getting better, no more sinus pressure however she still is having frontal headaches and some photophobia. She reports the last few days she has had a pains in her left lower lung, back in between both of her scapulas and her right upper chest. It is worth with deep breaths and movement. She is not coughing. She has had no fever or chills. She denies any shortness of breath. She is a nonsmoker with no cardiac risk factors. MD complaint: chest pain Onset (ago): day(s) (3) Timing of current episode: episodic Prior episodes: Yes Pain location: left chest and right chest Pain radiation: back Severity: moderate Quality: sharp Relieving factors: rest Exacerbating factors: inspiration, palpation and movement Context: recent illness Treatment prior to arrival: none Risk Factors Coronary artery disease risk factors: none Thoracic aortic dissection risk factors: none Related Data On Oral Contraceptives: No Home Medications Medication Instructions Recorded Confirmed Vitamin D3 11/10/20 Zoloft 11/10/20 Previous Rx's Medication Instructions Recorded ibuprofen 600 mg tablet 600 mg PO Q8H PRN pain #20 tabs 11/10/20 oxycodone 5 mg tablet 5 mg PO Q6H PRN pain #8 tabs 11/10/20 cyclobenzaprine 10 mg tablet 10 mg PO Q8H PRN Muscle spasm #14 09/16/21 tabs hydrocodone 5 mg-acetaminophen 325 1 tab PO Q8H PRN pain #14 tabs 09/16/21 mg tablet ibuprofen 800 mg tablet 800 mg PO Q8H PRN pain #14 tabs 09/16/21 amoxicillin 875 mg-potassium 1 tab PO BID sinus infection 10 04/07/22 clavulanate 125 mg tablet days #20 tabs guaifenesin 600 mg tablet, 600 mg PO Q12H PRN congestion #14 04/07/22 extended release 12 hr (Mucinex) tabs prednisone 20 mg tablet 20 mg PO DAILY 5 days #5 tabs 04/07/22 Allergies Allergy/AdvReac Type Severity Reaction Status Date / Time naproxen Allergy Vomiting Verified 04/07/22 09:22 nut - unspecified Allergy Anaphylaxis Verified 04/07/22 09:22 Review of Systems Review of Systems: Constitutional: No Fever, No Chills ENT/Mouth: No sore throat, No Rhinorrhea, No Swallowing Difficulty Eyes: No Eye Pain, No Swelling, No Redness, +Photophobia Cardiovascular: + Chest Pain, No SOB, No Orthopnea, No Edema Respiratory: No Cough, No Sputum, No Wheezing, No dyspnea Gastrointestinal: No Nausea, No Vomiting, No Diarrhea, No abdominal Pain Genitourinary: No Dysuria, No Urinary Frequency, No Hematuria Musculoskeletal: + joint pain, + Myalgias Skin: No Skin Lesions, No rash Neuro: No Weakness, No Numbness, No Dizziness, + Headache Psych: +Anxiety/Panic, No Depression Heme/Lymph: No Bruising, No Lymphadenopathy Endocrine: No Polyuria, No Polydipsia PMFSH Social History Social History Advance Directives: No Advance Directives Information Provided: Yes Physical Exam Vital Signs: Vital Signs: Last Vital Signs Temp 98 F 09/05/22 10:31 Pulse 51 09/05/22 13:51 Resp 16 09/05/22 13:51 BP 107/57 L 09/05/22 13:51 Pulse Ox 97 09/05/22 13:51 O2 Del Method 09/05/22 13:51 BMI result Body Mass Index 36.6 Appearance: Alert. Oriented X3. No acute distress. Eyes: Pupils equal, round and reactive to light. ENT: Pharynx normal. Neck: Normal inspection. Neck supple. CVS: Normal heart rate and rhythm. Pulses normal. Respiratory: No respiratory distress. Breath sounds normal. Left lower chest wall with soft tissue tenderness. Abdomen: Soft and nontender. +BS x4 Skin: Skin warm and dry. Normal skin color. Normal skin turgor. No rashes. Extremities: No lower extremity edema. Neuro: Oriented X 3. No motor deficit. No sensory deficit. Course Course Course Narrative: 39-year-old female with history of chronic Jasson Bar virus who presents to the ER for evaluation of chest pains, back pains that started few days ago. She has been on antibiotics for a sinus infection with improvement in her sinus symptoms however she generally feels unwell with these new pains for the last couple of days. She states there worth with deep inspiration. She has not been coughing or having any fevers at home. On arrival to the ER patient was slightly hypertensive 150s over 80s. She was saturating 97% on room air with no fever. Her basic labs done in triage show mild leukocytosis, WBC 11.5. Although the labs are unremarkable. Troponin is negative. EKG without ischemic changes. Will plan to repeat her troponin and check a D-dimer. No evidence of DVT on exa mination. Reevaluation(s) Reevaluation #1: Second troponin is negative. D-dimer less than 150. She seems have pleuritic chest pain, unclear etiology. Will treat with a short course of prednisone. She reports a history of pleurisy as a child. She will follow-up with her PCP. She is stable for DC. Return precautions were discussed. MDM - Chest Pain Medical Records Data Attestation: I reviewed the patient's medical records. Lab Data Attestation: I reviewed the patient's lab results. Result diagrams: 09/05/22 13:46 09/05/22 13:46 Labs: Lab Results 09/05/22 09/05/22 09/05/22 Range/Units 13:46 13:46 13:46 WBC 11.5 H (4.8-10.8) X10*3/uL RBC 5.29 D (4.20-5.50) X10*6/uL Hgb 15.6 (12.0-16.0) g/dl Hct 46.8 (37.0-47.0) % MCV 88.5 (80.0-98.0) fL MCH 29.5 (27.0-33.0) pg MCHC 33.3 (31.0-35.0) g/dl RDW 13.2 (11.0-16.0) % Plt Count 258 (160-400) X10*3/uL MPV 9.6 (9.4-12.3) fL Immature Gran % (Auto) 0.5 H (0.0-0.4) % Neut % (Auto) 62.8 (45-73) % Lymph % (Auto) 27.8 (20-40) % Gillespie % (Auto) 6.3 (2-11) % Eos % (Auto) 2.1 (0-4) % Baso % (Auto) 0.5 (0-2) % Lymph # (Auto) 3.2 (1.2-4.9) X10*3/uL Gillespie # (Auto) 0.7 (0.1-1.2) X10*3/uL Eos # (Auto) 0.2 (0.0-0.4) X10*3/uL Baso # (Auto) 0.1 (0.0-0.2) X10*3/uL Abs Immat Gran (auto) 0.06 H (0.00-0.03) X10*3/uL Absolute Neuts (auto) 7.2 (2.0-8.3) x10*3/uL Absolute Nucleated RBC 0.000 (0.0-0.012) X10*3/uL Nucleated RBC % (auto) 0.0 (0.0-0.2) /100WBC D-Dimer High Sensitivty NG/ML Sodium 140 (135-145) mmol/L Potassium 4.6 (3.3-5.1) mmol/L Chloride 105 (96-108) mmol/L Carbon Dioxide 24 (22-29) mmol/L Anion Gap 16 (12-20) BUN 11 (9-16) mg/dL Creatinine 0.76 (0.5-1.4) mg/dL Estim Creat Clear Calc 105.9 Estimated GFR > 60 Random Glucose 92 (60-115) mg/dL Calcium 9.2 (8.4-10.2) mg/dL Troponin I High Sens < 3.5 (<3.5-17.0) ng/L Influenza Type A (YON) (Negative) Influenza Type B (YON) (Negative) Influenza A & B Note 09/05/22 09/05/22 09/05/22 Range/Units 16:57 16:57 16:57 WBC (4.8-10.8) X10*3/uL RBC (4.20-5.50) X10*6/uL Hgb (12.0-16.0) g/dl Hct (37.0-47.0) % MCV (80.0-98.0) fL MCH (27.0-33.0) pg MCHC (31.0-35.0) g/dl RDW (11.0-16.0) % Plt Count (160-400) X10*3/uL MPV (9.4-12.3) fL Immature Gran % (Auto) (0.0-0.4) % Neut % (Auto) (45-73) % Lymph % (Auto) (20-40) % Gillespie % (Auto) (2-11) % Eos % (Auto) (0-4) % Baso % (Auto) (0-2) % Lymph # (Auto) (1.2-4.9) X10*3/uL Gillespie # (Auto) (0.1-1.2) X10*3/uL Eos # (Auto) (0.0-0.4) X10*3/uL Baso # (Auto) (0.0-0.2) X10*3/uL Abs Immat Gran (auto) (0.00-0.03) X10*3/uL Absolute Neuts (auto) (2.0-8.3) x10*3/uL Absolute Nucleated RBC (0.0-0.012) X10*3/uL Nucleated RBC % (auto) (0.0-0.2) /100WBC D-Dimer High Sensitivty < 150 NG/ML Sodium (135-145) mmol/L Potassium (3.3-5.1) mmol/L Chloride (96-108) mmol/L Carbon Dioxide (22-29) mmol/L Anion Gap (12-20) BUN (9-16) mg/dL Creatinine (0.5-1.4) mg/dL Estim Creat Clear Calc Estimated GFR Random Glucose (60-115) mg/dL Calcium (8.4-10.2) mg/dL Troponin I High Sens < 3.5 (<3.5-17.0) ng/L Influenza Type A (YON) Negative (Negative) Influenza Type B (YON) Negative (Negative) Influenza A & B Note See Note ECG Data ECG #1: Attestation: I personally reviewed and interpreted this ECG as follows: ECG interpretation date: 09/05/22 ECG interpretation time: 16:46 Prior ECG tracings: not available for review Interpretation: Normal sinus rhythm, ventricular rate 67 beats per minute, normal NH interval, normal QTC, no ST segment elevations or depressions. Normal EKG. Critical Care Time Critical Care Time Critical Care Time: No Discharge Plan Discharge Clinical Impression: Pleuritic chest pain Patient Disposition: Home, Self-Care Instructions: Pleurisy (ED) Additional Instructions: Your lab workup today was unremarkable. Your EKG was normal. Your pain is not cardiac. You do not have pneumonia. You are negative for COVID and Flu. Take the prescribed prednisone to help with any inflammation in your lungs. Take motrin and/or tylenol around the clock as needed for pain. Follow up with your doctor as needed. If you develop new or worsening symptoms call 911 or come back to the ER for further evaluation. Prescriptions: No Action Vitamin D3 Zoloft ibuprofen 600 mg tablet 600 mg PO Q8H PRN (Reason: pain) Qty: 20 0RF oxycodone 5 mg tablet 5 mg PO Q6H PRN (Reason: pain) Qty: 8 0RF cyclobenzaprine 10 mg tablet 10 mg PO Q8H PRN (Reason: Muscle spasm) Qty: 14 0RF ibuprofen 800 mg tablet 800 mg PO Q8H PRN (Reason: pain) Qty: 14 0RF hydrocodone-acetaminophen 5-325 mg tablet 1 tab PO Q8H PRN (Reason: pain) Qty: 14 0RF Rx Instructions: Can be partially filled if patient request amoxicillin-pot clavulanate 875-125 mg tablet 1 tab PO BID 10 Days Qty: 20 0RF prednisone 20 mg tablet 20 mg PO DAILY 5 Days Qty: 5 0RF guaifenesin [Mucinex] 600 mg tablet extended release 12hr 600 mg PO Q12H PRN (Reason: congestion) Qty: 14 0RF Interventions: ED Discharge Assessment Last Done: 09/05/22 17:38 Discharge Date/Time: 09/05/22 17:39
[2022-09-05] MEDS: Acetaminophen 325 MG TABLET 975 MG PO (17:02)
[2022-09-05] MEDS: Ibuprofen 600 MG TABLET PO (17:03)
[2022-09-05 17:13] LABS: D Dimer High Sensitivity < 150 NG/ML
[2022-09-05 17:17] LABS: Influenza A Negative (Negative); Influenza B2 Negative (Negative)
[2022-09-05 17:24] LABS: Troponin-I High Sensitivity < 3.5 ng/L (<3.5-17.0)
== END 2022-09-05 17:39 | disposition home or self-care (01) ==
PROVIDERS: Physician Assistant; Emergency Provider Student in an Organized Health Care Education/Training Program; PCP Internal Medicine
DX: R07.89 Other chest pain (principal)
CPT/HCPCS: 36415; 71046; 80048; 84484; 85025; 85379; 87502; 93005; 99283; 99284

== ENCOUNTER 2022-09-19 12:46 | Outpatient (REF) | payer MEDICAID, SELFPAY ==
--- NOTE | ~2022-09-19 | CT_ITS ---
EXAMINATION: CT SINUS WITHOUT CONTRAST CLINICAL INFORMATION: Maxillary sinusitis. COMPARISON: No relevant prior imaging. TECHNIQUE: Cathodic Protection Technician images were obtained. CT imaging of the sinuses was performed without contrast. Data was reformatted into multiplanar images at the acquisition workstation. This CT examination was performed using dose optimization techniques as appropriate, variously including the following: *Automated exposure control *Adjustment of mA and/or kV according to patient size (this includes techniques or standardized protocols for targeted exams where dose is matched to indication/reason for exam; i.e. extremities or head) *Use of iterative reconstruction technique DLP: 131 mGy-cm FINDINGS: There is trivial mucosal thickening within the alveolar recess of the left maxillary sinus. Primary maxillary sinus ostia are widely patent. Uncinate processes are intact. No ostiomeatal unit dysfunction. Frontal sinuses are well aerated and frontal recesses are patent. The ethmoid air cells and the sphenoid sinus are well aerated. Seen on sinus ostia are patent. The nasal septum deviates to the right. Globes and extraocular muscles are symmetric. No abnormal retrobulbar mass or inflammation. Lamina papyracea and orbital floors are intact. Orbital apices are unremarkable. Limited visualization of intracranial anatomy reveals no abnormal finding. Specifically there is no midline shift or hydrocephalus. There is no mastoid or middle ear effusion. CT/CT sinus wo IV con IMPRESSION: Unremarkable CT scanning of the sinuses. No active paranasal sinus disease. All of the major paranasal sinus and pathways are patent. The nasal septum deviates to the right.
== END 2022-09-19 12:47 | disposition home or self-care (01) ==
LOC: HO.CT 12:46
PROVIDERS: PCP Internal Medicine; Visit Provider Physician Assistant
DX: J32.0 Chronic maxillary sinusitis (principal)
CPT/HCPCS: 70486

== ENCOUNTER 2022-11-08 12:34 | Outpatient (REF) | payer MEDICAID, SELFPAY ==
--- NOTE | ~2022-11-08 | XR_ITS ---
EXAMINATION: XR CHEST CLINICAL INFORMATION: Wheezing COMPARISON: Previous chest x-ray August 2022 TECHNIQUE: 2 views of the chest were obtained. FINDINGS: No significant abnormality is noted involving the heart, lungs, mediastinum, bony thorax or soft tissues. XR/XR chest 2V IMPRESSION: Unremarkable examination.
== END 2022-11-08 12:35 | disposition home or self-care (01) ==
LOC: HO.XRAY 12:34
PROVIDERS: PCP Internal Medicine; Visit Provider Physician Assistant
DX: R06.2 Wheezing (principal)
CPT/HCPCS: 71046

== ENCOUNTER 2023-07-19 07:21 | Outpatient (REF) | payer MEDICAID, SELFPAY | END 2023-07-19 07:22 | disposition home or self-care (01) | LOC: HO.MAMMO 07:21 | PROVIDERS: PCP Internal Medicine; Visit Provider Internal Medicine | DX: Z12.31 Encounter for screening mammogram for malignant neoplasm of breast (principal) | CPT/HCPCS: 77063; 77067 ==

== ENCOUNTER → 2023-07-19 07:30 | Outpatient (BNV) | payer MEDICAID, SELFPAY | PROVIDERS: PCP Internal Medicine; Visit Provider Radiology Diagnostic Radiology | DX: Z12.31 Encounter for screening mammogram for malignant neoplasm of breast (principal) | CPT/HCPCS: 77063; 77067 ==

== ENCOUNTER 2023-08-07 06:14 | Outpatient (REF) | payer MEDICAID, SELFPAY ==
--- NOTE | ~2023-08-07 | XR_ITS ---
EXAMINATION: XR KNEE, RIGHT CLINICAL INFORMATION: Right knee pain COMPARISON: None available. TECHNIQUE: Three views of the right knee. FINDINGS: No significant joint effusion. Moderate medial marginal osteophytes with joint space narrowing. Small posterior patellar osteophytes. Subchondral lucencies measuring up to 5 mm along the medial aspect of the medial femoral condyle. Small bony spur along the medial aspect of the lateral femoral condyle. XR/XR knee RT 3V IMPRESSION: Degenerative changes as detailed above. Subchondral lucencies along the medial femoral condyle. CT scan or MRI recommended for further evaluation.
== END 2023-08-07 06:15 | disposition home or self-care (01) ==
LOC: HO.XRAY 06:14
PROVIDERS: PCP Internal Medicine; Visit Provider Physician Assistant
DX: M25.561 Pain in right knee (principal)
CPT/HCPCS: 73562

== ENCOUNTER 2023-09-11 17:09 | Outpatient (REF) | payer MEDICAID, SELFPAY ==
--- NOTE | ~2023-09-11 | MR_ITS ---
EXAMINATION: MR KNEE WITHOUT CONTRAST, RIGHT CLINICAL INFORMATION: Lateral right knee pain. Instability. COMPARISON: Right knee radiographs dated 08/07/2023. TECHNIQUE: MRI of the knee without contrast was performed using routine sequences on a high-field scanner. FINDINGS: MENISCI: Medial Meniscus: Intact. Lateral Meniscus: Intact. LIGAMENTS: Cruciate: Intact. Collateral: Intact. EXTENSOR MECHANISM: Intact. ARTICULAR CARTILAGE/BONE: Patellofemoral Compartment: Diffuse patellar articular cartilage thinning with broad areas of full-thickness loss inferiorly. Superior lateral and medial patellar facet fissuring with mild subchondral cystic change. Inferior medial trochlear full-thickness articular cartilage fissuring with underlying subchondral cystic change and marrow edema. Small marginal osteophytes. Medial Compartment: Weightbearing articular cartilage signal heterogeneity and surface irregularity with small marginal osteophytes. Lateral Compartment: Mild articular cartilage signal heterogeneity with tiny marginal osteophytes. JOINT FLUID AND BURSAE: Small joint effusion. MR/MR knee RT wo con IMPRESSION: 1. 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 Small joint effusion. 2. No acute meniscal or ligamentous injury.
== END 2023-09-11 17:10 | disposition home or self-care (01) ==
LOC: HO.MRI 17:09
PROVIDERS: PCP Internal Medicine; Visit Provider Physician Assistant
DX: M25.561 Pain in right knee (principal)
CPT/HCPCS: 73721

== ENCOUNTER 2024-05-30 10:05 | Outpatient (REF) | payer MEDICAID, SELFPAY ==
[2024-05-30 12:51] LABS: Appearance Urine Clear; Color Urine Yellow; Glucose Urine UA Negative (Negative); Leukocyte Esterase Urine Negative (Negative); Nitrite Urine Negative (Negative); Specific Gravity - Urine 1.015 (1.005-1.025); Urine Blood Negative (Negative); Urine Ketones Negative (Negative); Urine Protein Negative (Neg-Trace)
[2024-05-30 12:56] LABS: Bacteria Urine 1+ (None Seen); Hyaline Casts Urine 0-2 /LPF (0-2); RBC Urine 0-2 /HPF (0-2); WBC Urine 0-5 /HPF (0-5)
== END 2024-05-30 10:06 | disposition home or self-care (01) ==
LOC: HO.LAB 10:05
PROVIDERS: PCP Internal Medicine; Visit Provider Physician Assistant
DX: N39.3 Stress incontinence (female) (male) (principal)
CPT/HCPCS: 81001

== ENCOUNTER 2024-06-10 13:49 | Outpatient (REF) | payer MEDICAID, SELFPAY ==
--- NOTE | ~2024-06-10 | US_ITS ---
EXAMINATION: US PELVIS LIMITED (BLADDER) CLINICAL INFORMATION: Stress incontinence. COMPARISON: None available. TECHNIQUE: Real-time imaging of the bladder. FINDINGS: BLADDER: Well-distended and unremarkable. Bilateral ureteral jets are demonstrated. Prevoid bladder volume is 408.6 mL. No postvoid residual. US/US bladder IMPRESSION: Unremarkable urinary bladder.
== END 2024-06-10 13:50 | disposition home or self-care (01) ==
LOC: HO.US 13:49
PROVIDERS: PCP Internal Medicine; Visit Provider Physician Assistant
DX: N39.3 Stress incontinence (female) (male) (principal)
CPT/HCPCS: 76857

== ENCOUNTER 2024-10-21 09:08 | Outpatient (REF) | payer MEDICAID, SELFPAY ==
--- NOTE | ~2024-10-21 | MM_ITS ---
EXAMINATION: MM SCREENING DIGITAL BREAST TOMOSYNTHESIS, BILATERAL CLINICAL INFORMATION: Screening. Asymptomatic. COMPARISON: Mammography: Comparison is made with available priors TECHNIQUE: Digital breast mammography with tomosynthesis is performed in both the craniocaudal and mediolateral oblique views along with computer-aided detection (CAD). FINDINGS: There are scattered areas of fibroglandular density (ACR BI-RADS breast composition Category b). There are no significant masses, abnormal calcifications, or other abnormalities. MM/MM tomosynthesis screening BI IMPRESSION: No mammographic evidence of malignancy. ASSESSMENT: BI-RADS BI-RADS 1 - Negative RECOMMENDATION: Routine annual mammography screening. 1 year F/U This examination should not preclude the clinical evaluation of a suspicious palpable abnormality. This patient's information was entered into a reminder system with a target due date for their next mammogram. Electronically signed by: Jenni Hollis DO 10/25/2024 04:50 PM [facility]
== END 2024-10-21 09:09 | disposition home or self-care (01) ==
LOC: HO.MAMMO 09:08
PROVIDERS: PCP Internal Medicine; Visit Provider Internal Medicine
DX: Z12.31 Encounter for screening mammogram for malignant neoplasm of breast (principal)
CPT/HCPCS: 77063; 77067

== ENCOUNTER → 2024-10-21 09:30 | Outpatient (BNV) | payer MEDICAID, SELFPAY | PROVIDERS: PCP Internal Medicine; Visit Provider Internal Medicine | DX: Z12.31 Encounter for screening mammogram for malignant neoplasm of breast (principal) | CPT/HCPCS: 77063; 77067 ==

== ENCOUNTER 2025-02-03 09:54 | Outpatient (REF) | payer MEDICAID, SELFPAY ==
--- NOTE | ~2025-02-03 | XR_ITS ---
EXAMINATION: XR HIP 1 VIEW LEFT WITH PELVIS HISTORY: PAIN IN LEFT HIP COMPARISON: There are no prior studies for comparison. FINDINGS: A single AP view of the pelvis and two views of the left hip are submitted. Osseous mineralization is normal. There is no fracture or dislocation. There is mild superior joint space narrowing. An IUD is seen in the pelvis to the right of midline. XR/XR hip LT w [id number] IMPRESSION: Mild superior joint space narrowing. Electronically signed by: Buck Chow MD 02/04/2025 10:27 AM EDT
== END 2025-02-03 09:55 | disposition home or self-care (01) ==
LOC: HO.XRAY 09:54
PROVIDERS: PCP Internal Medicine; Visit Provider Physician Assistant
DX: M25.552 Pain in left hip (principal)
CPT/HCPCS: 73502

== ENCOUNTER → 2025-02-03 10:03 | Outpatient (BNV) | payer MEDICAID, SELFPAY | PROVIDERS: PCP Internal Medicine; Visit Provider Radiology Diagnostic Radiology | DX: M25.552 Pain in left hip (principal) | CPT/HCPCS: 73502 ==

== ENCOUNTER 2025-03-04 07:25 | Outpatient (REF) | payer MEDICAID, SELFPAY ==
--- NOTE | ~2025-03-04 | MR_ITS ---
CLINICAL HISTORY: LEFT HIP PAIN MR of the left hip without contrast. No prior MR. Findings: No suspicious bony lesions are seen. There is no evidence of an insufficiency fracture or avascular necrosis. There is [id number] osteoarthritis of the hip with cystic change in the anterior superior acetabulum. There is mild distal gluteus medius and minimus tendinopathy. There is no iliopsoas bursitis. There is mild common hamstrings tendinopathy. Impression: [id number] left hip osteoarthritis. Mild gluteus medius and minimus tendinopathy. Mild common hamstrings tendinopathy. This document has been electronically signed by: Alcides Del Toro MD on 03/05/2025 18:15:55
== END 2025-03-04 07:26 | disposition home or self-care (01) ==
LOC: HO.MRI 07:25
PROVIDERS: PCP Internal Medicine; Visit Provider Physician Assistant
DX: M25.552 Pain in left hip (principal)
CPT/HCPCS: 73721

== ENCOUNTER → 2025-03-04 07:30 | Outpatient (BNV) | payer MEDICAID, SELFPAY | PROVIDERS: PCP Internal Medicine; Visit Provider Radiology Diagnostic Radiology | DX: M16.12 Unilateral primary osteoarthritis, left hip (principal) | CPT/HCPCS: 73721 ==

== ENCOUNTER 2025-04-23 12:03 | Outpatient (REF) | payer MEDICAID, SELFPAY ==
--- OUTSIDE RECORDS SUMMARY | 2025-04-23 13:42 | XMS_ITS | Data Portability ---
Author Organization [facility], Telehealth Patient Home Address [address] [place] [address] Assessment No assessment recorded. Plan of Treatment Reminders Order Date Submit Date Provider Last Modified By Organization Details Last Modified Time Details Appointments NEW PROBLEM 15 2024 11:15A LIBBY BARBOUR Not available Not available Not available Lab lyme disease igg+igm, serum, reflex western blot 2024 025 [facility], [address] [place] [address], [id number], 04/23/2025 12:01:15 anaplasma phagocyto philum + ehrlichia chaffeens is IgG + IgM panel, serum 2024 025 [facility], [address] [place] [address], [id number], 04/23/2025 12:01:15 Rickettsi a rickettsi i IgM Ab, QN, serum 2024 025 [facility], [address] [place] [address], [id number], 04/23/2025 12:01:14 urinalysi s complete, reflex culture 2024 025 [facility], [address] [place] [address], [id number], 04/23/2025 12:01:15 phosphoru s, serum or plasma 2024 025 [facility], [address] [place] [address], [id number], 04/23/2025 12:01:15 PTH (parathyr oid hormone), intact + calcium, serum or plasma 2024 025 [facility], [address] [place] [address], [id number], 04/23/2025 12:01:15 magnesium , serum or plasma 2024 025 [facility], [address] [place] [address], 9[address], 04/23/2025 12:01:14 estradiol , serum 2024 025 [facility], [address] [place] [address], 08[address], 04/23/2025 12:01:14 lh + FSH, serum 2024 025 [facility], [address] [place] [address], 634[address], 04/23/2025 12:01:13 progester one, serum 2024 025 [facility], [address] [place] [address], 465[address], 04/23/2025 12:01:13 iron + TIBC + ferritin, serum 2024 025 [facility], [address] [place] [address], [id number], 04/23/2025 12:01:14 vitamin B12 + folate, serum or blood 2024 025 [facility], [address] [place] [address], 25[address], 04/23/2025 12:01:14 TSH + free T4, serum 2024 025 [facility], [address] [place] [address], [id number], 04/23/2025 12:01:14 vitamin D, 25-hydrox y, total, serum 2024 [facility], [address] [place] [address], 12672, 04/23/2025 12:01:14 CBC w/ auto diff 2024 [facility], [address] [place] [address], [id number], 04/23/2025 12:01:15 CMP, serum or plasma 2024 [facility], [address] [place] [address], [id number], 04/23/2025 12:01:14 hemoglobi n A1c, QN, blood 2024 [facility], [address] [place] [address], 370[address], 04/23/2025 12:01:15 C-reactiv e protein, quantitat lukasz, serum or plasma 2024 025 [facility], [address] [place] [address], [id number], 04/23/2025 12:01:15 ESR (erythroc yte sedimenta tion rate), blood 2024 025 [facility], [address] [place] [address], [id number], 04/23/2025 12:01:15 berlin-b arr virus (ebv) IgG + IgM panel, serum 2024 025 [facility], [address] [place] [address], [id number], 04/23/2025 12:01:14 urinalysi s complete, reflex culture 2023 024 [facility], [address] [facility], [place], [address], 05/31/2024 11:23:36 Referral dermatolo gist referral 2022 023 banner Mane Orozco MD, [address] [place], [address], 08/09/2023 08:35:30 Procedures None recorded. Surgeries None recorded. Imaging MRI, brain, w/wo contrast 2024 025 [facility] Central Scheduling, [address] [place] [address], [id number], 04/23/2025 11:57:51 XR, hip + pelvis, unilatera l, 2 or 3 view 2024 025 [facility], [address] [place] [address], [id number], 02/04/2025 11:35:36 US, bladder 2023 024 [facility] Scheduling, [address] [place] [address], [address], 05/31/2024 08:08:22 XR, knee, 3 view 2022 023 [facility], [address] [place] [address], [address], 08/15/2023 09:05:23 Medication Orders tramadol 50 mg tablet 2024 025 [id number], [address] [place], [address], 04/23/2025 11:21:59 Lidocaine Viscous 2 % mucosal solution 2023 025 [id number], [address] [place], [address], 04/23/2025 11:21:41 prednison e 10 mg tablet 2023 025 [id number], [address] [place], [address], 01/31/2025 10:38:04 Cipro 500 mg tablet 2023 025 [id number] [address] [place], [address], 01/31/2025 10:15:27 clindamyc in 1 % topical gel 2022 023 [facility], [address] [place] [address], [id number], 08/01/2023 11:09:19 progester one micronize d 200 mg capsule 2022 023 [facility], [address] [place] [address], [address], 09/16/2024 14:09:51 estradiol 1 mg tablet 2022 023 [facility], [address] [place] [address], [address], 08/01/2023 11:00:16 terbinafi ne HCl 250 mg tablet 2022 023 [facility], [address] [place] [address], [address], 08/29/2023 14:43:39 Patient TargetsNo targets recorded. Patient InstructionsNo instructions recorded. 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 [email or web address] [address] [place], [address], 07/19/2023 08:44:57 08/09/20 23 08/07/2023 XR, knee, 1 or 2 view No observ ation record ed. [facility] (Medical Records) [address] [facility] [place], [address], 08/09/2023 14:12:27 09/13/2009/11/2023 MRI, knee, w/o contr ast No observ ation record ed. [facility] (Medical Records) [address] [facility] [place], [address], 09/13/2023 15:24:15 06/24/20 24 06/10/2024 US, bladd er No observ ation record ed. [email or web address] [facility] Central Scheduling [address] [place], [address], 06/26/2024 11:01:21 10/25/20 24 10/21/2024 MAMMO , scree salvador, digit al, bilat eral No observ ation record ed. [email or web address] [address] [place], [address], 10/26/2024 15:39:12 02/05/20 25 02/03/2025 XR, hip + pelvi s, unila teral , 2 or 3 view No observ ation record ed. [facility] [address] [place], [address], 04/23/2025 11:18:09 03/05/20 25 03/04/2025 MRI, hip, w/o contr ast No observ ation record ed. [facility] (Medical Records) [address] [place], [address], 04/23/2025 11:18:09 Result Notes None recorded. Problems Name Problem SNOMED Code Status Onset Date Resolution Date Notes Provider Name and Address Organization Details Recorded Time Anxiety 58166911 Active 2019 LIBBY MONTEZ [address] [place] [address], [address], [facility] 0 10:31:53 Depressiv e disorder 92040211 Active 2019 LIBBY MONTEZ [address] [place] [address], [address], [facility] 0 10:32:04 Facial swelling 621986898 Active 2021 LIBBY MONTEZ [address] [place] [address], [address], [facility] 2 12:30:06 Chronic sinusitis 48265636 Active 2021 LIBBY MONTEZ [address] [place] [address], [address], [facility] 2 10:25:49 Empyema of pleura 24244502 Active 2021 LIBBY MONTEZ [address] [place] [address], [address], [facility] 2 10:47:18 Pleurisy 445775607 Active 2021 LIBBY MONTEZ [address] [place] [address], [address], [facility] 2 10:47:24 Costal chondriti s 10922815 Active 2021 LIBBY MONTEZ [address] [place] [address], [address], [facility] 2 16:48:33 Infection of lacrimal gland 066900360 Active 2021 LIBBY MONTEZ [address] [place] [address], [address], [facility] 2 16:50:40 Candidias is of vagina 35538880 Active 2021 LIBBY MONTEZ [address] [place] [address], [address], [facility] 2 16:55:06 Pain of right knee joint 772304381994 100 Active 2021 LIBBY MONTEZ [address] [place] [address], [address], [facility] 2 16:59:37 Low back pain 187688839 Active 2021 LIBBY MONTEZ [address] [place] [address], [address], [facility] 2 16:59:41 Anand red spot 97715104 Active 2021 LIBBY MONTEZ [address] [place] [address], [address], [facility] 2 17:09:19 Chronic recurrent sinusitis 034545341 Active 2021 LIBBY MONTEZ [address] [place] [address], [address], [facility] 2 16:55:17 Cervico-o ccipital neuralgia 79276828 Active 2021 LIBBY MONTEZ [address] [place] [address], [address], [facility] 2 14:09:59 Deviated nasal septum 358696777 Active 2021 LIBBY MONTEZ [address] [place] [address], [address], [facility] 2 16:43:10 Wheezing 76051367 Active 2021 LIBBY MONTEZ [address] [place] [address], [address], [facility] 2 11:58:56 Nausea 091611205 Active 2022 LIBBY MONTEZ [address] [place], [address], [facility] 3 11:47:04 Menopause Active 2022 LIBBY MONTEZ [address] [place] [address], [address], [facility] 3 10:58:45 Acne 59988007 Active 2022 LIBBY MONTEZ [address] [place] [address], [address], [facility] 3 11:08:06 Tinea pedis 4889528 Active 2022 LIBBY MONTEZ [address] [place] [address], [address], [facility] 3 11:13:56 Multiple benign melanocyt ic nevi 417548349 Active 2022 LIBBY MONTEZ [address] [place] [address], [address], [facility] 3 11:16:11 Degenerat lukasz lesion of articular cartilage of knee 991102063 Active 2022 LIBBY MONTEZ [address] [place] [address], [address], [facility] 3 15:25:10 Diverticu litis of colon 668057817 Active 2023 LIBBY MONTEZ [address] [place] [address], [address], [facility] 4 11:16:42 Urinary incontine nce 886168415 Active 2023 LIBBY MONTEZ [address] [place] [address], [address], [facility] 4 10:12:50 Dry eyes 879543891 Active 2023 LIBBY MONTEZ [address] [place] [address], [address], [facility] 4 11:33:04 COVID-19 231886127 Active 2023 LIBBY MONTEZ [address] [place], [address], [facility] 4 09:55:13 Acute pharyngit is 972891243 Active 2023 LIBBY MONTEZ [address] [place], [address], [facility] 4 14:07:08 Sore throat 560882574 Active 2023 LIBBY MONTEZ [address] [place], [address], [facility] 4 14:08:03 Pain of left hip joint 563198972341 100 Active 2024 LIBBY MONTEZ [address] [place], [address], [facility] 5 10:35:24 Tendiniti s of left gluteal tendon 583635402569 108 Active 2024 LIBBY MONTEZ [address] [place], [address], [facility] 5 10:51:00 Fatigue 51949403 Active 2024 LIBBY MONTEZ [address] [place], [address], [facility] 5 11:33:29 Headache disorder 855935632 Active 2024 LIBBY MONTEZ [address] [place], [address], [facility] 5 11:36:06 Dizziness 776183251 Active 2024 LIBBY MONTEZ [address] [place] [address], [address], [facility] 5 11:37:06 Muscle pain 95441883 Active 2024 LIBBY MONTEZ [address] [place] [address], [address], [facility] 5 11:39:38 Finding of hand region 813180379 Active 2024 LIBBY MONTEZ [address] [place], [address], [facility] 5 11:53:20 Problem Notes None recorded. Medical Equipment None Reported. Allergies Allergen ID Allergen Name Allergen Category Reaction Reaction Severity Criticality Documentation Date Start Date Code Code System Note Provider Name and Address Organization Details Recorded Time 6112 naproxen medicatio n Not available Not available Not available 09/16/2022 7258 RxNorm Juliann Susanavicki [facility] 2 14:03:13 8173 tree nut food anaphylax is Not available [facility] 05/29/2024 86190 UNK Coleman Zelaya [facility] 4 09:52:29 8494 iodine medicatio n vomiting Not available Not available 09/16/2024 5933 RxNorm Annaamanda Sommer [facility] 4 13:57:37 9051 tramadol medicatio n Not available Not available [facility] 04/23/2025 31510 RxNorm LIBBY Tomlin SI [address] [place], [address], [facility] 5 11:35:01 Medications Name Sig Start Date Stop Date Status Note LastModified by Organization Details LastModified Time cyclobenzap rine 10 mg tablet TAKE ONE TABLET BY MOUTH EVERY 8 HOURS NEEDED FOR MUSCLE SPASM 02/23 completed Not Available Not Available Not Available budesonide 32 mcg/actuati on nasal spray USE 1 SPRAY IN EACH NOSTRIL ONCE DAILY 08/01 completed Not Available Not Available Not Available prednisone 10 mg tablet PLEASE SEE ATTACHED FOR DETAILED DIRECTION S 01/31 completed Not Available Not Available Not Available azithromyci n 250 mg tablet TAKE TWO TABLETS BY MOUTH ONE DOSE ON THE FIRST DAY, THEN TAKE ONE TABLET DAILY GINA Velasco 05/29 completed Not Available Not Available Not Available ibuprofen 800 mg tablet TAKE ONE TABLET BY MOUTH EVERY 8 HOURS NEEDED FOR PAIN 09/22 completed Not Available Not Available Not Available Lidocaine Viscous 2 % mucosal solution TAKE 15 ML 4 TIMES A DAY BY ORAL ROUTE NEEDED FOR 7 DAYS. 04/23 completed Not Available Not Available Not Available ofloxacin 0.3 % eye drops INSTILL 1 DROP INTO AFFECTED EYE(S) 4 TIMES A DAY 09/29 completed Not Available Not Available Not Available fluconazole 150 mg tablet TAKE ONE TABLET BY MOUTH EVERY DAY FOR 7 DAYS 05/29 completed Not Available Not Available Not Available valacyclovi r 1 gram tablet Take 1 tablet every 12 hours by oral route for 30 days. 10/14 completed Not Available Not Available Not Available hydrocodone 5 mg-acetamin ophen 325 mg tablet TAKE ONE TABLET BY MOUTH EVERY 8 HOURS NEEDED FOR PAIN 09/22 completed Not Available Not Available Not Available meloxicam 15 mg tablet TAKE ONE TABLET BY MOUTH EVERY DAY WITH MEALS FOR 14 DAYS 06/04 completed Not Available Not Available Not Available phenazopyri dine 200 mg tablet TAKE ONE TABLET BY MOUTH THREE TIMES A DAY FOR 7 DAYS 08/01 completed Not Available Not Available Not Available prednisone 20 mg tablet TAKE ONE TABLET BY MOUTH EVERY DAY FOR 14 DAYS 11/08 completed Not Available Not Available Not Available estradiol 0.05 mg/24 hr semiweekly transdermal patch Apply 1 patch twice a week by transderm al route for 30 days. 10/18 completed Not Available Not Available Not Available ciprofloxac in 500 mg tablet TAKE 1 TABLET BY MOUTH EVERY 12 HOURS FOR 10 DAYS 01/31 completed Not Available Not Available Not Available sulfamethox azole 800 mg-trimetho prim 160 mg tablet TAKE ONE TABLET BY MOUTH EVERY 12 HOURS FOR 7 DAYS 05/29 completed Not Available Not Available Not Available tramadol 50 mg tablet TAKE 1 TABLET BY MOUTH EVERY 6 HOURS FOR 15 DAYS 04/23 completed Not Available Not Available Not Available ondansetron 8 mg disintegrat ing tablet DISSOLVE ONE TABLET ON THE TONGUE TWICE A DAY FOR 14 DAYS 05/29 completed Not Available Not Available Not Available baclofen 20 mg tablet TAKE ONE TABLET BY MOUTH FOUR TIMES A DAY IF NEEDED 07/07 completed Not Available Not Available Not Available terbinafine HCl 250 mg tablet TAKE ONE TABLET BY MOUTH EVERY DAY 08/29 completed Not Available Not Available Not Available lorazepam 0.5 mg tablet TAKE ONE TABLET BY MOUTH ONCE A DAY NEEDED active Not Available Not Available No t Available estradiol 1 mg tablet TAKE ONE TABLET BY MOUTH EVERY DAY active Not Available Not Available No t Available clindamycin 1 % topical gel APPLY A THIN LAYER TO THE AFFECTED AREA TWO TIMES A DAY active Not Available Not Available No t Available neomycin-po lymyxin-dex ameth 3.5 mg/mL-10,00 0 unit/mL-0.1 % eye drops INSTILL 1 DROP INTO THE LEFT EYE FOUR TIMES A DAY 08/29 completed Not Available Not Available Not Available progesteron e micronized 200 mg capsule TAKE ONE CAPSULE BY MOUTH EVERY DAY FOR 12 DAYS 09/16 completed Not Available Not Available Not Available gabapentin 300 mg capsule TAKE ONE CAPSULE BY MOUTH EVERY DAY 08/01 completed Not Available Not Available Not Available sertraline 25 mg tablet TAKE ONE TABLET BY MOUTH EVERY DAY active Not Available Not Available No t Available diclofenac sodium 75 mg tablet,maru yed release TAKE ONE TABLET BY MOUTH TWO TIMES A DAY FOR 14 DAYS IF NEEDED 06/04 completed Not Available Not Available Not Available amoxicillin 250 mg capsule TAKE ONE CAPSULE BY MOUTH THREE TIMES A DAY FOR 14 DAYS 11/08 completed Not Available Not Available Not Available codeine 10 mg-guaifene sin 100 mg/5 mL oral liquid TAKE 10ML BY MOUTH EVERY 4 HOURS NEEDED 05/29 completed Not Available Not Available Not Available gabapentin 100 mg capsule TAKE ONE CAPSULE BY MOUTH ONCE DAILY 07/07 completed Not Available Not Available Not Available epinephrine 0.3 mg/0.3 mL injection, auto-inject or INJECT 0.3 ML INTO THE MUSCLE ONCE. MAY REPEAT DOSE ONCE AFTER 5-15 MINS active Not Available Not Available No t Available ibuprofen 600 mg tablet TAKE ONE TABLET BY MOUTH EVERY 8 HOURS NEEDED FOR PAIN 04/21 completed Not Available Not Available Not Available estradiol 0.01% (0.1 mg/gram) vaginal cream INSERT 1 GRAM VAGINALLY ONCE DAILY FOR 14 DAYS 08/29 completed Not Available Not Available Not Available colchicine 0.6 mg tablet TAKE ONE TABLET BY MOUTH ONCE DAILY FOR 7 DAYS 11/08 completed Not Available Not Available Not Available sertraline 50 mg tablet TAKE ONE TABLET BY MOUTH EVERY DAY (take with 25mg) 2024 active Not Available Not Available Not Avai lable progesteron e micronized 100 mg capsule TAKE 2 CAPSULES BY MOUTH EVERY DAY active Not Available Not Available No t Available amoxicillin 875 mg-felipasulma m clavulanate 125 mg tablet TAKE ONE TABLET BY MOUTH TWICE A DAY FOR 10 DAYS NEEDED FOR SINUS INFECTION 06/08 completed Not Available Not Available Not Available oxycodone 5 mg tablet TAKE 1 TABLET (5 MG TOTAL) BY MOUTH EVERY 4 HOURS NEEDED 01/31 completed Not Available Not Available Not Available Restasis 0.05 % eye drops in a dropperette INSTILL 1 DROP INTO AFFECTED EYE EVERY 12 HOURS 04/23 completed Not Available Not Available Not Available Mucus Relief ER 600 mg tablet, extended release TAKE ONE TABLET BY MOUTH EVERY 12 HOURS NEEDED FOR CONGESTIO N 06/08 completed Not Available Not Available Not Available Flucelvax Quad (PF) 60 mcg (15 mcg x 4)/0.5 mL IM syringe VACCINATI ON ADMINISTE RED BY PHARMACIS T 04/21 completed Not Available Not Available Not Available Paxlovid 300 mg (150 mg x 2)-100 mg tablets in a dose pack TAKE 1 DOSE PK BY ORAL ROUTE DIRECTED ON PACKAGE 09/16 completed Not Available Not Available Not Available Vitals Date Recorded Body height Body mass index (BMI) Body weight Heart rate Oxygen saturation Oxygen saturation in Arterial blood by Pulse oximetry Systolic blood pressure Diastolic blood pressure Provider Name and Address Organization Details Last Updated DateTime 5 165.1 cm 40.4 kg/m2 543072. 95 g 68 /min 98 % 98 % 118 mm[Hg] 78 mm[Hg] Coleman Zelaya [facility] 5 10:16:57 Date Recorded Body height Body mass index (BMI) Body weight Heart rate Oxygen saturation Oxygen saturation in Arterial blood by Pulse oximetry Systolic blood pressure Diastolic blood pressure Provider Name and Address Organization Details Last Updated DateTime 5 165.1 cm 37.2 kg/m2 197711. 25 g 70 /min 94 % 94 % 110 mm[Hg] 72 mm[Hg] Anna Sommer [facility] 5 11:09:14 Date Recorded Body height Body mass index (BMI) Body weight Heart rate Oxygen saturation Oxygen saturation in Arterial blood by Pulse oximetry Systolic blood pressure Diastolic blood pressure Provider Name and Address Organization Details Last Updated DateTime 4 165.1 cm 39.8 kg/m2 035305. 58 g 66 /min 98 % 98 % 134 mm[Hg] 74 mm[Hg] Coleman Zelaya [facility] 4 09:49:18 Date Recorded Body height Body mass index (BMI) Body weight Heart rate Oxygen saturation Oxygen saturation in Arterial blood by Pulse oximetry Systolic blood pressure Diastolic blood pressure Provider Name and Address Organization Details Last Updated DateTime 3 165.1 cm 40 kg/m2 058863. 53 g 64 /min 98 % 98 % 108 mm[Hg] 70 mm[Hg] LIBBY MONTEZ [address] [place] [address], [address], [facility] 3 10:38:08 Date Recorded Body height Body mass index (BMI) Body weight Heart rate Oxygen saturation Oxygen saturation in Arterial blood by Pulse oximetry Systolic blood pressure Diastolic blood pressure Provider Name and Address Organization Details Last Updated DateTime 4 165.1 cm 39.6 kg/m2 793413. 7 g 68 /min 98 % 98 % 124 mm[Hg] 72 mm[Hg] Anna Sommer [facility] 4 13:59:29 Social History Question Answer Notes LastModified by Organizat ion Details LastModified Time Tobacco Smoking Status Former Smoker Not Available [facility] 09/15/2020 03:36:24 What Was The Date Of Your Most Recent Tobacco Screening? 04/23/2025 [email or web address] Information not available 04/23/2025 Sex: Unknown Functional Status None recorded. Mental Status None recorded. Family History Relationship Description Onset Age of this Age Resolved Age Notes LastModified by Organization Details LastModified Time Father Cerebrovascu lar accident [email or web address] Not available 09:50:38 Father Myocardial infarction [email or web address] Not available 05/29 09:50:47 Medical History No medical history recorded. Gynecological HistoryNo gynecological history recorded. Obstetrics History GPAL:G 0 P 0 0 0 0 Immunizations Vaccine Type Date Status Note Provider Nam e and Address Organization Details Recorded Time COVID-19, mRNA, LNP-S, PF, 100 mcg/0.5mL dose or 50 mcg/0.25mL dose 1 completed Not Available [facility] 11/09/2022 14:44:14 Influenza, split virus, quadrivalent, preservative 0 completed Not Available [facility] 11/09/2022 14:44:14 COVID-19, mRNA, LNP-S, PF, 30 mcg/0.3 mL dose 1 completed Not Available [facility] 11/09/2022 14:44:14 COVID-19, mRNA, LNP-S, PF, 30 mcg/0.3 mL dose 1 completed Not Available [facility] 11/09/2022 14:44:14 Past Encounters Encounter ID Performer Location Encounter Start Date Encounter Closed Date Diagnosis/Indication Diagnosis SNOMED-CT Code Diagnosis ICD10 Code Diagnosis Note [id number] Bryce Rolle [facility] [address] [facility], [place] [address] 06/17/2020 09:11:31 06/17/2020 09:41:43 Screening mammography 61979013 Z12.31 needs a mammogram scheduled Gynecologi c examination 00810708 Z01.419 needs a pap performed, 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 [address] 07/17/2020 10:07:16 07/17/2020 10:37:24 Premenopausal amenorrhea 97082125 N91.2 will check FSH and see if she is in premenopau se Anxiety 25480494 F41.9 will try on sertraline and see if she has any benefit with it will let me know if she needs an increased dosage Hypertensive disorder 38 570676 I10 normally really good very stressed today will monitor for it [id number] Bryce Rolle [facility] [address] [facility],[place] [address] 10/14/2020 08:13:27 10/14/2020 10:45:13 Anxiety 85038382 F41.9 doing much better on the zoloft, feeling much better with decreased symptoms Depressive disorder 3548 9007 F32.9 stable now on medication [id number] Bryce Rolle [facility] [address] [facility],[place] [address] 11/09/2020 09:14:42 11/09/2020 10:44:44 Pain of right ankle joint [id number] 5334952 M25.571 will set up for XR to r/o fracture, from the presentati on and symptoms possible Grade 3 sprain will fu after XR, discussed order for crutches and brace Anxiety 59818573 F41.9 doing much better on the zoloft, feeling much better with decreased symptoms Depressive disorder 3548 9007 F32.9 stable now on medication [id number] Bryce Rolle [facility] [address] [facility], [place] [address] 04/21/2021 13:58:17 04/21/2021 14:22:05 Pain of left temporomandibular joint [id number] 9334597 M26.622 left TMJ will treat with MSK relaxer and anti-infla mmatory [id number] rByce Rolle [facility] [address] [facility], [place] [facility] [place] [address] 06/04/2021 13:37:06 06/04/2021 14:06:37 Depressive disorder 45768458 F32.9 [id number] Bryce Rolle [facility] [address] [facility] [address] 07/07/2021 13:42:30 07/07/2021 14:22:24 Depressive disorder 45719183 F32.9 seems to be ok with feeling down Anxiety 49474930 F41.9 [place] d [id number] Bryce oRlle [facility] [address] [facility],[place] [address] 09/22/2021 09:45:13 09/22/2021 12:12:40 Allergy to nut 87338249 Z91.018 needs refill Active or passive immunization 333318457 Z23 stablenorm al reaction to vaccineboo ster shot with moderna Anxiety 83613313 F41.1 doing much better on the zoloft, feeling much better with decreased symptoms Depressive disorder 3548 9007 F32.0 stable now on medication [id number] Bryce Rolle [facility] [address] [facility],[place] [address] 11/23/2021 08:09:25 11/23/2021 17:24:33 Pain in right hand 5944590307 39145 M79.641 will fu with repeat XR to r/o fracture [id number] Bryce Rolle [facility] [address] [facility],[place] [address] 06/08/2022 10:33:52 06/08/2022 16:45:19 Anxiety 50419027 F41.1 stable Depressive disorder 7958 5877 F32.0 stable on medication [id number] Bryce Rolle [facility] [address] [facility],[place] [address] 08/31/2022 09:12:34 08/31/2022 11:53:29 Chronic sinusitis 27358587 J32.[address] since her XR is negativewi ll start on Cipro 500 mg BID for 7 days [id number] [facility] [address] [facility],[place] [address] 09/07/2022 16:09:02 09/09/2022 09:05:07 Infection of lacrimal gland 421074926 H04.012 will start on ofloxacin and warm compresses Pleurisy 665210891 R09.1 will start on short course of colchicine Candidiasis of vagina 72 241026 B37.31 will restart Pain of ri ght knee joint 8545349546 28623 M25.561 will f/u with XR right knee for evaluation after injury Low back pain 183200170 M54.59 will f/u with XR low back for evaluation after injury Anand red spot 36215692 H35.89 most likely related to vaccinenew reports released confirming this [id number] Bryce Rolle DO [facility] [address] [facility] [address],[place] [address] 09/16/2022 14:00:38 09/19/2022 09:50:41 Cervico-occipital neuralgia 65328280 M54.81 will start on gabapentin and prednisone Chronic sinusitis 530124 [address] is happening on Monday Facial swelling 57580590 6 R22.0 will readjust her pred taperstart on gabapentin and budesonide spray [id number] Bryce Rolle [facility] [address] [facility] [address],[place] [address] 11/08/2022 11:28:28 11/08/2022 13:14:29 Wheezing 58759170 R06.2 will fu with XR chest for possible pna vs costal chondritis [id number] Bryce Rolle DO [facility] [address] [facility] [address],[place] [address] 08/01/2023 10:26:45 08/01/2023 11:30:57 Anxiety 21130160 F41.1 stable Depressive disorder 3548 9007 F32.0 stable on medication Menopause 502979034 N95. 1 will set up with HRT Acne 08751500 L70.8 will start back on clindamyci n Tinea pedis 7466071 B35. 3 will set up with oral medication Multiple b enign melanocytic nevi 479733813 D22.9 will set up with derm Pain of ri ght knee joint 3660871313 51040 M25.561 needs more imaging will need MRI after [id number] Bryce Rolle DO [facility] [address] [facility] [address],[place] [address] 05/29/2024 09:41:43 05/29/2024 12:05:28 Depression screening 171279610 Z13.31 negative Depressive disorder 3548 9007 F32.0 stable on medication Urinary incontinence 165 524995 N39.3 will set up with urine sample and US bladder [id number] Bryce Rolle DO [facility] [address] [facility] [address],[place] [address] 09/16/2024 13:48:13 09/16/2024 15:42:16 Acute pharyngitis 102742555 J02.8 start on prednisone Sore throat 124897366 J0 2.8 as needed [id number] Bryce Rolle [facility] [address] [place] [address] 01/31/2025 10:11:21 01/31/2025 14:20:26 Low back pain 376892834 M54.59 will f/u with XR low back for evaluation after injury Pain of le ft hip joint 8596013212 04188 M25.552 will set up with the XR hip Pain of ri ght ankle joint 7735584086 6994710 M25.571 will set up for XR to r/o fracture, from the presentati on and symptoms possible Grade 3 sprain will fu after XR, discussed order for crutches and brace [id number] Bryce Rolle [facility] [address] [facility], [place] [address] 04/23/2025 10:59:57 04/23/2025 12:00:17 Menopause 226489693 N95.1 continue on treatment Depression screening 171 698483 Z13.31 negative History of vaccination 914993732 Z92.29 recommende d Tdap, Shingles, Fatigue 91457063 R53.83 recommende d full work up Menopause present 169324 006 Z78.0 will set up with HRT Headache disorder 677252 009 G44.89 will set up with lab work Dizziness 020468214 R42 will set up with lab work Muscle pain 75404323 M79 .10 will fu with lab work Finding of hand region 708295081 R25.1 ?neuro-deg enerative disorder Health Concerns Section Related Observation LastModified by Organization Detai ls LastModified Time None Recorded Concern Status LastModified by Organization Details LastModified Time None Recorded Advance Directives Directive None Recorded Payers Encounter Date Sequence Insurance Name Policy Number Policy Torrez Covered Member ID Torrez Member ID Guarantor Name 08/01/2023 1 [place] [id number] Jaqueline Reese 05/29/2024 1 [place] [facility] Jaqueline Reese [id number] Jaqueline Reese 09/16/2024 1 [place] [facility] Jaqueline Reese [id number] Jaqueline Reese 01/31/2025 1 [place] [facility] Jaqueline Reese [id number] Jaqueline Reese 04/23/2025 1 [place] [facility] Jaqueline Reese [id number] Jaqueline Reese Notes Date Note Type Note Provider Name and Address Organization Details Recorded Time 3 text/htm l f/u hormone issues the patient has been talking about hormone replacementcurrently in menopausediscussed how to use the patient reports that she is getting hormone related acnewill start back has chronic dry eye, started on eye drops from eye doctor agreed to derm referral and needs to start oral for the fungal infection of her feet need MRI but need XR firsth/x of ski accidentmost likely has meniscal tears and ACL tear LIBBY MONTEZ [address] [place], [address], [facility] 08/01/2023 11:25:57 4 text/htm l c/o incontinence the patient is getting surgery in her R knee, having cadaver bone placed in the area of missing bone and cartilageop is in October the patient is doing well on her medication for her anxiety and menopausal symptomsthe patient is having issues though with incontinence, urinary stress incontinence, if she really has to go she will leak the patient has had issues with incontinence throughout her lifediscussed options probable pelvic floor dysfunction with menopausal symptomsagreed to f.u with a urine and US just to r/o other causes that may have triggered also may look into pelvic floor dysfunction PT discussed medication also she could use LIBBY MONTEZ [address] [place], [address], [facility] 05/29/2024 10:30:53 4 text/htm l c/o sore throat patient is having swollen tonsil, pain with swallowing foods and liquidsswelling of her LN'gracie in the ears, R side is swollen with effusionL side is erythematous general fatigueno chest pain or sob the patient denies fever or chills had COVID a few weeks agoresidual inflammation resulting in sore throat no signs of peritonsillar abscessno muffled voice LIBBY MONTEZ [address] [place], [address], [facility] 09/16/2024 14:15:32 5 text/htm l c/o back pain and SI joint pain left the patient has been having intermittent back paindeveloped the original problem when she was 21 y/othe patient has pain in the left hip/SI jointloss of ROM with her left leg, can't extend to full ROM with her hip pain with ext and int rotation will start with XR def her hip joint LIBBY MONTEZ [address] [place], [address], [facility] 01/31/2025 10:42:51 5 text/htm l f/u menopause the patient is reporting significant symptoms: the patient is doing great with her R knee after her surgerythe patient is getting SI joint injection and a hip injection the patient is working with [facility] the patient is here for f/u about her menopausal symptomsshe is currently on estradiol 1 mg and progesterone 100 mg (2 caps)the patient reports that she is having severe exhaustion and fatigue, brain fog.difficulty with concentrationthe patient has been on adderall before with good benefit the patient was in [place] and developed heat strokethe patient states she had been hydrating, staying out of the sun, and still continues with dizziness, headaches, nausea, extreme fatiguethe patient notes this started the beginning of the year around no specific triggersrecommended full lab work for patient to determine cause of her symptoms the patient is noticing weakness, loss of depth perception when she is walkingwalking with an odd gait, shuffling feet the patient is having left hand tremor (essential tremor, has had it for years, but has worsenedthe patient reports that she also had fecal incontinence, was getting pre syncope and syncope LIBBY MONTEZ [address] [place], [address], [facility] 04/23/2025 12:00:15 OBGyn Episode No OBEpisode recorded.
[2025-04-23 18:04] LABS: MANUAL DIFF FLAG NO
[2025-04-23 18:27] LABS: Estimated Average Glucose 108 mg/dL; Hemoglobin A1c % 5.4 % (<6.0)
[2025-04-23 18:32] LABS: Basophils Absolute Auto 0.1 X10*3/uL (0.0-0.2); Basophils Percent Auto 0.7 % (0-2); Eosinophils Absolute Auto 0.2 X10*3/uL (0.0-0.4); Eosinophils Percent Auto 1.5 % (0-4); Hematocrit 44.9 % (37.0-47.0); Imm Gran Abs Auto 0.03 X10*3/uL (0.00-0.03); Imm Gran Pct Auto 0.3 % (0.0-0.4); Lymphocytes Absolute Auto 3.3 X10*3/uL (1.2-4.9); Lymphocytes Percent Auto 32.3 % (20-40); Mean Corpuscular HGB Conc 33.4 g/dl (31.0-35.0); Mean Corpuscular Hemoglobin 30.2 pg (27.0-33.0); Mean Corpuscular Volume 90.3 fL (80.0-98.0); Mean Platelet Volume 9.7 fL (9.4-12.3); Monocytes Absolute Auto 0.5 X10*3/uL (0.1-1.2); Monocytes Percent Auto 5.3 % (2-11); Neutrophils Absolute Auto 6.1 x10*3/uL (2.0-8.3); Neutrophils Percent Auto 59.9 % (45-73); Platelet Count 310 X10*3/uL (160-400); Red Blood Count 4.97 X10*6/uL (4.20-5.50); Red Cell Distribution Width 13.3 % (11.0-16.0); White Blood Count 10.2 X10*3/uL (4.8-10.8)
[2025-04-23 18:34] LABS: Appearance Urine Clear; Color Urine Yellow; Glucose Urine UA Negative (Negative); Leukocyte Esterase Urine Negative (Negative); Nitrite Urine Negative (Negative); PH 6.5 (5.0-9.0); Specific Gravity - Urine 1.025 (1.005-1.025); Urine Blood Negative (Negative); Urine Ketones Negative (Negative); Urine Protein Negative (Neg-Trace)
[2025-04-23 18:37] LABS: Parathyroid Hormone Intact 47.7 pg/mL (8.7-77.1)
[2025-04-23 18:41] LABS: Alanine Aminotransferase 19 U/L (0-31); Albumin Level 4.5 g/dL (3.5-5.0); Alkaline Phosphatase 75 U/L (39-117); Anion Gap 13 (12-20); Aspartate Amino Transferase 25 U/L (5-31); Bilirubin Total 0.4 mg/dL (0.0-1.0); Blood Urea Nitrogen 18 mg/dL (9-16); C Reactive Protein 0.56 mg/dL (< or = 0.50); Calcium 9.2 mg/dL (8.4-10.2); Carbon Dioxide 24 mmol/L (22-29); Chloride 107 mmol/L (96-108); Estimated Glomerular Filt Rate > 60; Glucose Random 80 mg/dL (60-115); Iron 79 mcg/dL (30-160); Percent Iron Saturation 34 % (15-50); Phosphorus 3.2 mg/dL (2.7-4.5); Sodium 140 mmol/L (135-145); Total Iron Binding Capacity 231 mcg/dL (228-428); Total Protein 7.2 g/dL (6.5-8.0); Unsaturated Iron Binding 152 ug/dL
[2025-04-23 19:01] LABS: Ferritin 221 ng/mL (10-250); Thyroid Stimulating Hormone 1.14 uIU/mL (0.32-4.0); Vitamin D 25-OH Total 144.4 ng/mL (>30)
[2025-04-23 19:03] LABS: Folate 11.6 ng/mL (> or = 4.0); Vitamin B12 524 pg/mL (200-900)
[2025-04-23 19:20] LABS: Erythrocyte Sedimentation Rate 9 MM/HR (0-20)
[2025-04-24 04:35] LABS: Follicle Stimulating Hormone 95.5 mIU/mL; Lutenizing Hormone 32.3 mIU/mL
[2025-04-24 05:28] LABS: EBV-NA IgG Index <18.00 U/mL; EBV-VCA IgM Ab <36.00 U/mL
[2025-04-24 23:03] LABS: Lyme Abs Screen <0.90 index
[2025-04-28 14:29] LABS: Spotted Fever Group IgG Not Detected (Not Detected); Spotted Fever Group IgM Not Detected (Not Detected); Typhus Fever Group IgG Not Detected (Not Detected); Typhus Fever Group IgM Not Detected (Not Detected)
[2025-04-29 16:28] LABS: A. Phagocytophilum Ab IgG <1:64 (<1:64); A. Phagocytophilum Ab IgM <1:20 (<1:20); E. Chaffeensis Ab IgG <1:64 (<1:64); E. Chaffeensis Ab IgM <1:20 (<1:20)
[2025-05-08 01:48] LABS: Estradiol Free 0.19 pg/mL; Estradiol, Ultrasensitive 10 pg/mL
== END 2025-04-23 12:04 | disposition home or self-care (01) ==
LOC: HO.MANLDS 12:03
PROVIDERS: Visit Provider Physician Assistant
DX: Z78.0 Asymptomatic menopausal state (principal); R53.83 Other fatigue; G44.89 Other headache syndrome; M79.10 Myalgia, unspecified site
CPT/HCPCS: 36415; 80053; 81003; 82306; 82607; 82670; 82681; 82728; 82746; 83001; 83002; 83036; 83540; 83735; 83970; 84100; 84144; 84439; 84443; 85025; 85652; 86140; 86617; 86618; 86664; 86665; 86666; 86757

== ENCOUNTER 2025-04-30 15:34 | Outpatient (REF) | payer MEDICAID, SELFPAY ==
--- OUTSIDE RECORDS SUMMARY | 2025-04-30 17:47 | XMS_ITS | Data Portability ---
Author Organization [facility], Telehealth Patient Home Address [address] [place] [address] Assessment No assessment recorded. Plan of Treatment Reminders Order Date Submit Date Provider Last Modified By Organization Details Last Modified Time Details Appointments SDV 2024 11:45A M LIBBY MONTEZ Not available Not available Not available Lab culture, blood 2 2024 025 [facility], [address] [place] [address], [address]65[address], 04/30/2025 13:04:14 hepatitis panel (A+B+C), acute, serum 2024 025 [facility], [address] [place] [address], 67079, 04/30/2025 13:04:14 HIV 1+2 AB + HIV 1 p24 Ag, qualitati ve immunoass ay, serum 2024 025 [facility], [address] [place] [address], 36265, 04/30/2025 13:04:14 RPR (rapid plasma reagin), serum 2024 025 [facility], [address] [place] [address], 35880, 04/30/2025 13:04:14 serotonin , blood 2024 025 [facility], [address] [place] [address], 17263, 04/30/2025 13:21:55 lipase, serum or plasma 2024 025 [facility], [address] [place] [address], 34052, 04/30/2025 13:04:13 amylase, serum or plasma 2024 025 [facility], [address] [place] [address], 54119, 04/30/2025 13:04:13 pancreati c elastase, stool 2024 025 [facility], [address] [place] [address], 99733, 04/30/2025 13:04:14 insulin, serum 2024 025 [facility], [address] [place] [address], 35887, 04/30/2025 13:04:14 C-peptide , serum 2024 025 [facility], [address] [place] [address], 02302, 04/30/2025 13:04:13 cortisol, free, 24-hour urine 2024 025 [facility], [address] [place] [address], 73501, 04/30/2025 13:04:13 acth, plasma 2024 025 [facility], [address] [place] [address], 75002, 04/30/2025 13:04:14 hemoglobi n A1c, QN, blood 2024 025 [facility], [address] [place] [address], 95728, 04/30/2025 13:04:13 lyme disease igg+igm, serum, reflex western blot 2024 [facility], [address] [place] [address], 12314, 04/25/2025 12:09:58 anaplasma phagocyto philum + ehrlichia chaffeens is IgG + IgM panel, serum 2024 [facility], [address] [place] [address], 18111, 04/30/2025 12:42:12 Rickettsi a rickettsi i IgM Ab, QN, serum 2024 [facility], [address] [place] [address], 81498, 04/23/2025 12:01:14 urinalysi s complete, reflex culture 2024 [facility], [address] [place] [address], 01934, 04/23/2025 12:01:15 phosphoru s, serum or plasma 2024 [facility], [address] [place] [address], 29144, 04/23/2025 12:01:15 PTH (parathyr oid hormone), intact + calcium, serum or plasma 2024 025 [facility], [address] [place] [address], 32131, 04/23/2025 12:01:15 magnesium , serum or plasma 2024 025 [facility], [address] [place] [address], 09560, 04/23/2025 12:01:14 estradiol , serum 2024 025 [facility], [address] [place] [address], 57185, 04/23/2025 12:01:14 lh + FSH, serum 2024 025 [facility], [address] [place] [address], 59725, 04/23/2025 12:01:13 progester one, serum 2024 025 [facility], [address] [place] [address], 84613, 04/23/2025 12:01:13 iron + TIBC + ferritin, serum 2024 025 [facility], [address] [place] [address], 18050, 04/23/2025 12:01:14 vitamin B12 + folate, serum or blood 2024 025 [facility], [address] [place] [address], 98978, 04/23/2025 12:01:14 TSH + free T4, serum 2024 025 [facility], [address] [place] [address], 60151, 04/23/2025 12:01:14 vitamin D, 25-hydrox y, total, serum 2024 025 [facility], [address] [place] [address], 54885, 04/23/2025 12:01:14 CBC w/ auto diff 2024 025 [facility], [address] [place] [address], 15254, 04/23/2025 12:01:15 CMP, serum or plasma 2024 025 [facility], [address] [place] [address], 59480, 04/23/2025 12:01:14 hemoglobi n A1c, QN, blood 2024 025 [facility], [address] [place] [address], 40434, 04/23/2025 12:01:15 C-reactiv e protein, quantitat lukasz, serum or plasma 2024 025 [facility], [address] [place] [address], 57546, 04/23/2025 12:01:15 ESR (erythroc yte sedimenta tion rate), blood 2024 025 [facility], [address] [place] [address], 85727, 04/23/2025 12:01:15 jasson-b arr virus (ebv) IgG + IgM panel, serum 2024 025 [facility], [address] [place] [address], 23004, 04/23/2025 12:01:14 urinalysi s complete, reflex culture 2023 024 [facility], [address] [place] [address], 84992, 05/31/2024 11:23:36 Referral None recorded. Procedures None recorded. Surgeries None recorded. Imaging US, echocardi ogram 2024 025 [facility], [address] [place] [address], 67[address], 04/30/2025 13:53:19 holter monitor 2024 025 [email or web address] [facility], [address] [place], [address], 04/30/2025 13:45:35 MRI, knee, w/o contrast - hx of scope of the knee, patient 2024 025 [facility], [address] [place], [address], 04/30/2025 13:51:57 MRI, pancreas, w/wo contrast 2024 025 [facility], [address] [place], [address], 04/30/2025 13:53:19 MRI, brain, w/wo contrast 2024 025 [facility], [address] [place], [address], 04/30/2025 08:36:25 XR, hip + pelvis, unilatera l, 2 or 3 view 2024 025 [facility], [address] [place], [address], 02/04/2025 11:35:36 US, bladder 2023 024 [facility], [address] [place], [address], 05/31/2024 08:08:22 Medication Orders tramadol 50 mg tablet 2024 025 [facility][id number], [address] [place], [address], 04/23/2025 11:21:59 Lidocaine Viscous 2 % mucosal solution 2023 025 [facility][id number], [address] [place], [address], 04/23/2025 11:21:41 prednison e 10 mg tablet 2023 025 [facility][id number], [address] [place], [address], 01/31/2025 10:38:04 Cipro 500 mg tablet 2023 025 [facility][id number], [address] [place], [address], 01/31/2025 10:15:27 Patient TargetsNo targets recorded. Patient InstructionsNo instructions recorded. Reason for Referral None Reported. Results Created Date Observation Date Name Description Value Unit Range Abnormal Flag Note LastModifiedBy Organization Detail LastModifiedTime 06/24/20 24 06/10/2024 US, bladd er No observ ation record ed. [email or web address] [facility] [address] [place], [address], 06/26/2024 11:01:21 10/25/20 24 10/21/2024 MAMMO , scree salvador, digit al, bilat eral No observ ation record ed. [email or web address] [facility] [address] [place] [address] [place], [address], 10/26/2024 15:39:12 02/05/20 25 02/03/2025 XR, hip + pelvi s, unila teral , 2 or 3 view No observ ation record ed. [facility] [address] [place], [address], 04/23/2025 11:18:09 03/05/20 25 03/04/2025 MRI, hip, w/o contr ast No observ ation record ed. [facility] (Medical Records) [address] [place], [address], 04/23/2025 11:18:09 Result Notes None recorded. Problems Name Problem SNOMED Code Status Onset Date Resolution Date Notes Provider Name and Address Organization Details Recorded Time Anxiety 98229112 Active 2019 LIBBY MONTEZ [address] [place] [address], [address], [facility] 0 10:31:53 Depressiv e disorder 41273179 Active 2019 LIBBY MONTEZ [address] [place] [address], [address], [facility] 0 10:32:04 Facial swelling 070647512 Active 2021 LIBBY MONTEZ [address] [place] [address], [address], [facility] 2 12:30:06 Chronic sinusitis 06839865 Active 2021 LIBBY MONTEZ [address] [place] [address], [address], [facility] 2 10:25:49 Empyema of pleura 98055096 Active 2021 LIBBY MONTEZ [address] [place] [address], [address], [facility] 2 10:47:18 Pleurisy 974202654 Active 2021 LIBBY MONTEZ [address] [place] [address], [address], [facility] 2 10:47:24 Costal chondriti s 01516013 Active 2021 LIBBY MONTEZ [address] [place] [address], [address], [facility] 2 16:48:33 Infection of lacrimal gland 533839397 Active 2021 LIBBY MONTEZ [address] [place] [address], [address], [facility] 2 16:50:40 Candidias is of vagina 00263287 Active 2021 LIBBY MONTEZ [address] [place] [address], [address], [facility] 2 16:55:06 Pain of right knee joint 380827229276 100 Active 2021 LIBBY MONTEZ [address] [place], [address], [facility] 5 12:49:48 Low back pain 573185943 Active 2021 LIBBY MONTEZ [address] [place], [address], [facility] 2 16:59:41 Anand red spot 68747752 Active 2021 LIBBY MONTEZ [address] [place] [address], [address], [facility] 2 17:09:19 Chronic recurrent sinusitis 001597526 Active 2021 LIBBY MONTEZ [address] [place] [address], [address], [facility] 2 16:55:17 Cervico-o ccipital neuralgia 99226239 Active 2021 LIBBY MONTEZ [address] [place] [address], [address], [facility] 2 14:09:59 Deviated nasal septum 931258125 Active 2021 LIBBY MONTEZ [address] [place] [address], [address], [facility] 2 16:43:10 Wheezing 01968652 Active 2021 LIBBY MONTEZ [address] [place] [address], [address], [facility] 2 11:58:56 Nausea 128604454 Active 2022 LIBBY MONTEZ [address] [place] [address], [address], [facility] 3 11:47:04 Menopause Active 2022 LIBBY MONTEZ [address] [place] [address], [address], [facility] 3 10:58:45 Acne 72800116 Active 2022 LIBBY MONTEZ [address] [place] [address], [address], [facility] 3 11:08:06 Tinea pedis 2953457 Active 2022 LIBBY MONTEZ [address] [place] [address], [address], [facility] 3 11:13:56 Multiple benign melanocyt ic nevi 210418640 Active 2022 LIBBY MONTEZ [address] [place] [address], [address], [facility] 3 11:16:11 Degenerat lukasz lesion of articular cartilage of knee 958939430 Active 2022 LIBBY MONTEZ [address] [place] [address], [address], [facility] 3 15:25:10 Diverticu litis of colon 908477418 Active 2023 LIBBY MONTEZ [address] [place] [address], [address], [facility] 4 11:16:42 Urinary incontine nce 484803772 Active 2023 LIBBY MONTEZ [address] [place] [address], [address], [facility] 4 10:12:50 Dry eyes 805699969 Active 2023 LIBBY MONTEZ [address] [place] [address], [address], [facility] 4 11:33:04 COVID-19 138041814 Active 2023 LIBBY MONTEZ [address] [place] [address], [address], [facility] 4 09:55:13 Acute pharyngit is 539437254 Active 2023 LIBBY MONTEZ [address] [place], [address], [facility] 4 14:07:08 Sore throat 919264160 Active 2023 LIBBY MONTEZ [address] [place], [address], [facility] 4 14:08:03 Pain of left hip joint 897469905523 100 Active 2024 LIBBY MONTEZ [address] [place], [address], [facility] 5 10:35:24 Tendiniti s of left gluteal tendon 744061021236 108 Active 2024 LIBBY MONETZ [address] [place], [address], [facility] 5 10:51:00 Fatigue 59971920 Active 2024 LIBBY MONTEZ [address] [place], [address], [facility] 5 11:33:29 Headache disorder 226820864 Active 2024 LIBBY MONTEZ [address] [place], [address], [facility] 5 11:36:06 Dizziness 105786311 Active 2024 LIBBY MONTEZ [address] [place], [address], [facility] 5 11:37:06 Muscle pain 36786535 Active 2024 LIBBY MONTEZ [address] [place] [address], [address], [facility] 5 11:39:38 Finding of hand region 474033655 Active 2024 LIBBY MONTEZ [address] [place], [address], [facility] 5 11:53:20 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 2024 LIBBY MONTEZ [address] [place] [address], [address], [facility] 5 15:36:09 Hypoglyce bety 566112808 Active 2024 LIBBY MONTEZ [address] [place] [address], , [facility] 5 12:46:22 Palpitati ons 97623676 Active 2024 LIBBY MONTEZ [address] [place] [address], [address], [facility] 5 12:50:23 Pyrexia of unknown origin 6960008 Active 2024 LIBBY MONTEZ [address] [place] [address], , [facility] 5 12:53:09 Pancreati c insuffici ency 26627132 Active 2024 LIBBY MONTEZ [address] [place] [address], , [facility] 5 12:55:04 Syncope symptom 883083046 Active 2024 LIBBY MONTEZ [address] [place] [address], [address], [facility] 5 13:03:52 Problem Notes None recorded. Medical Equipment None Reported. Allergies Allergen ID Allergen Name Allergen Category Reaction Reaction Severity Criticality Documentation Date Start Date Code Code System Note Provider Name and Address Organization Details Recorded Time 6112 naproxen medicatio n Not available Not available Not available 09/16/2022 7258 [facility] 2 14:03:13 8173 tree nut food anaphylax is Not available [facility] 05/29/2024 58879 UNK [facility] 4 09:52:29 8494 iodine medicatio n vomiting Not available Not available 09/16/2024 5933 RxNorm Anna Sommer [facility] 4 13:57:37 9051 tramadol medicatio n Not available Not available [facility] 04/23/2025 54717 RxNorm shalini sb LIBBY Porter SI [address] [place], [address] [place] [address] Internal [facility] 5 11:35:01 Medications Name Sig Start Date [...] FIRST DAY, THEN TAKE ONE TABLET DAILY THEREAFTE R. 05/29 completed Not Available Not Available Not [...] hours by oral route for 30 days. 2024 active Not Available Not Available Not Avai lable hydrocodone 5 mg-acetamin ophen 325 mg tablet [...] Not Available No t Available amoxicillin 875 mg-guillermina m clavulanate 125 mg tablet TAKE ONE [...] Updated DateTime 5 165.1 cm 40.4 kg/m2 488988. 95 g 68 /min 98 % 98 % 118 mm[Hg] 78 mm[Hg] Coleman Zelaya [facility] 5 10:16:57 Date Recorded Body height Body mass index (BMI) Body weight Heart rate Oxygen saturation Oxygen saturation in Arterial blood by Pulse oximetry Systolic blood pressure Diastolic blood pressure Provider Name and Address Organization Details Last Updated DateTime 5 165.1 cm 37.2 kg/m2 588486. 25 g 70 /min 94 % 94 % 110 mm[Hg] 72 mm[Hg] Anna Sommer [facility] 5 11:09:14 Date Recorded Body height Body mass index (BMI) Body weight Heart rate Oxygen saturation Oxygen saturation in Arterial blood by Pulse oximetry Systolic blood pressure Diastolic blood pressure Provider Name and Address Organization Details Last Updated DateTime 5 165.1 cm 37.1 kg/m2 781497. 1 g 70 /min 98 % 98 % 110 mm[Hg] 64 mm[Hg] Hailey Huizar [facility] 5 12:33:09 Date Recorded Body height Body mass index (BMI) Body weight Heart rate Oxygen saturation Oxygen saturation in Arterial blood by Pulse oximetry Systolic blood pressure Diastolic blood pressure Provider Name and Address Organization Details Last Updated DateTime 4 165.1 cm 39.8 kg/m2 879240. 58 g 66 /min 98 % 98 % 134 mm[Hg] 74 mm[Hg] Coleman Zelaya [facility] 4 09:49:18 Date Recorded Body height Body mass index (BMI) Body weight Heart rate Oxygen saturation Oxygen saturation in Arterial blood by Pulse oximetry Systolic blood pressure Diastolic blood pressure Provider Name and Address Organization Details Last Updated DateTime 4 165.1 cm 39.6 kg/m2 253043. 7 g 68 /min 98 % 98 % 124 mm[Hg] 72 mm[Hg] Anna Sommer [facility] 4 13:59:29 Social History Question Answer Notes LastModified by Organizat ion Details LastModified Time Tobacco Smoking Status Former Smoker Not Available [facility] 09/15/2020 03:36:24 What Was The Date Of Your Most Recent Tobacco Screening? 04/30/2025 [email or web address] Information not available 04/30/2025 Sex: Unknown Functional Status None recorded. Mental [...] mcg/0.25mL dose 1 completed Not Available [facility] 11/09/2022 14:44:14 Influenza, split virus, quadrivalent, preservative 0 completed Not Available [facility] 11/09/2022 14:44:14 COVID-19, mRNA, LNP-S, PF, 30 mcg/0.3 mL dose 1 completed Not Available [facility] 11/09/2022 14:44:14 COVID-19, mRNA, LNP-S, PF, 30 mcg/0.3 mL dose 1 completed Not Available [facility] 11/09/2022 14:44:14 Past Encounters Encounter ID Performer Location Encounter Start Date Encounter Closed Date Diagnosis/Indication Diagnosis SNOMED-CT Code Diagnosis ICD10 Code Diagnosis Note [id number] DO [facility] [address] [facility] [address] 06/17/2020 09:11:31 06/17/2020 09:41:43 Screening mammography 86196977 Z12.31 needs a mammogram scheduled Gynecologi c examination 10065003 Z01.419 needs a pap performed, sent out to senior client advisor Abdominal pain 05134073 R10.9 will check to see if she to has a positive EBV antigen [id number] Bryce Rolle [facility] [address] [facility],[place] [address] 07/17/2020 10:07:16 07/17/2020 10:37:24 Premenopausal amenorrhea 08349298 N91.2 will check FSH and see if she is in premenopau se Anxiety 77275974 F41.9 will try on sertraline and see if she has any benefit with it will let me know if she needs an increased dosage Hypertensive disorder 38 680863 I10 normally really good very stressed today will monitor for it [id number] Bryce Rolle [facility] [address] [place] [address],[place] [address] 10/14/2020 08:13:27 10/14/2020 10:45:13 Anxiety 16185459 F41.9 doing much better on the zoloft, feeling much better with decreased symptoms Depressive disorder 3548 9007 F32.9 stable now on medication [id number] Bryce Rolle [facility] [address] [facility],[place] [address] 11/09/2020 09:14:42 11/09/2020 10:44:44 Pain of right ankle joint 8193401460 2292637 M25.571 will set up for XR to r/o fracture, from the presentati on and symptoms possible Grade 3 sprain will fu after XR, discussed order for crutches and brace Anxiety 25047231 F41.9 doing much better on the zoloft, feeling much better with decreased symptoms Depressive disorder 3548 9007 F32.9 stable now on medication [id number] Bryce Rolle [facility] [address] [facility] [address] 04/21/2021 13:58:17 04/21/2021 14:22:05 Pain of left temporomandibular joint 3577836125 3211687 M26.622 left TMJ will treat with MSK relaxer and anti-infla mmatory [id number] Bryce Rolle [facility] [address] [facility] [address] [facility] [place] [address] 06/04/2021 13:37:06 06/04/2021 14:06:37 Depressive disorder 68444542 F32.9 [id number] Bryce Rolle [facility] [address] [facility] [facility] [place] [address] 07/07/2021 13:42:30 07/07/2021 14:22:24 Depressive disorder 23179505 F32.9 seems to be ok with feeling down Anxiety 67247961 F41.9 feeling overwhelme d [id number] Brcye Rolle [facility] [address] [facility] [facility] [place] [place] [address] 09/22/2021 09:45:13 09/22/2021 12:12:40 Allergy to nut 01796066 Z91.018 needs refill Active or passive immunization 921870608 Z23 stablenorm al reaction to vaccineboo ster shot with moderna Anxiety 98082108 F41.1 doing much better on the zoloft, feeling much better with decreased symptoms Depressive disorder 3548 9007 F32.0 stable now on medication [id number] Bryce Rolle [facility] [address] [facility] [address],[place] [address] 11/23/2021 08:09:25 11/23/2021 17:24:33 Pain in right hand 3612153272 68603 M79.641 will fu with repeat XR to r/o fracture [id number] Bryce Rolle [facility] [address] [facility],[place] [address] 06/08/2022 10:33:52 06/08/2022 16:45:19 Anxiety 80004622 F41.1 stable Depressive disorder 3548 9007 F32.0 stable on medication [id number] Bryce Rolle [facility] [address] [place] [address] 08/31/2022 09:12:34 08/31/2022 11:53:29 Chronic sinusitis 61696686 J32.[address] since her XR is negativewi ll start on Cipro 500 mg BID for 7 days [id number] Bryce Rolle [facility] [address] [facility],[place] [address] 09/07/2022 16:09:02 09/09/2022 09:05:07 Infection of lacrimal gland 282752806 H04.012 will start on ofloxacin and warm compresses Pleurisy 250009221 R09.1 will start on short course of colchicine Candidiasis of vagina 72 213600 B37.31 will restart Pain of ri ght knee joint 7160542253 15711 M25.561 will f/u with XR right knee for evaluation after injury Low back pain 447866154 M54.59 will f/u with XR low back for evaluation after injury Anand red spot 21712382 H35.89 most likely related to vaccinenew reports released confirming this [id number] Bryce Rolle [facility] [address] [place] [address] 09/16/2022 14:00:38 09/19/2022 09:50:41 Cervico-occipital neuralgia 13352673 M54.81 will start on gabapentin and prednisone Chronic sinusitis 767737 [address] is happening on Monday Facial swelling 95612578 6 R22.0 will readjust her pred taperstart on gabapentin and budesonide spray [id number] Bryce Rolle [facility] [address] [facility],[place] [address] 11/08/2022 11:28:28 11/08/2022 13:14:29 Wheezing 88402351 R06.2 will fu with XR chest for possible pna vs costal chondritis [id number] Bryce Rolle [facility] [address] [facility],[place] [address] 08/01/2023 10:26:45 08/01/2023 11:30:57 Anxiety 22280367 F41.1 stable Depressive disorder 3548 9007 F32.0 stable on medication Menopause 691621250 N95. 1 will set up with HRT Acne 37102874 L70.8 will start back on clindamyci n Tinea pedis 3172126 B35. 3 will set up with oral medication Multiple b enign melanocytic nevi 228136348 D22.9 will set up with derm Pain of ri ght knee joint 5578336991 33694 M25.561 needs more imaging will need MRI after [id number] Bryce Rolle [facility] [address] [facility],[place] [address] 05/29/2024 09:41:43 05/29/2024 12:05:28 Depression screening 748440673 Z13.31 negative Depressive disorder 3548 9007 F32.0 stable on medication Urinary incontinence 165 711148 N39.3 will set up with urine sample and US bladder [id number] Bryce Rolle [facility] [address] [facility],[place] [address] 09/16/2024 13:48:13 09/16/2024 15:42:16 Acute pharyngitis [id number] J02.8 start on prednisone Sore throat [id number] J0 2.8 as needed [id number] Bryce Rolle [facility] [address] [facility],[place] [address] 01/31/2025 10:11:21 01/31/2025 14:20:26 Low back pain 704781309 M54.59 will f/u with XR low back for evaluation after injury Pain of le ft hip joint [id number] 04439 M25.552 will set up with the XR hip Pain of ri ght ankle joint [id number] 4307327 M25.571 will set up for XR to r/o fracture, from the presentati on and symptoms possible Grade 3 sprain will fu after XR, discussed order for crutches and brace [id number] Bryce Rolle, [facility] [address] [facility],[place] [address] 04/23/2025 10:59:57 04/23/2025 13:58:57 Menopause [id number] N95.1 continue on treatment Depression screening 171 245144 Z13.31 negative History of vaccination 858887975 Z92.29 recommende d Tdap, Shingles, Fatigue 65887295 R53.83 recommende d full work up Menopause present 585360 006 Z78.0 will set up with HRT Headache disorder 965692 009 G44.89 will set up with lab work Dizziness 607189226 R42 will set up with lab work Muscle pain 39235762 M79 .10 will fu with lab work Finding of hand region 912739706 R25.1 ?neuro-deg enerative disorder [id number] Bryce Rolle [facility] [address] [facility] [facility],[place] [address] 04/30/2025 11:49:53 04/30/2025 13:45:34 Dizziness 048076141 R42 continues Hypoglycemia 501892661 E 16.2 additional work up for hypoglycem ia Pain of ri ght knee joint 6307799592 36646 M25.561 recommende d MRI knee, f/u septic joint after recent athroscope Palpitations 87239328 R0 0.2 adding on US echo, r/o endocardit is or other infectious /inflammat ory process Pyrexia of unknown origin 7836833 R50.9 set up with additional blood culture, hep panel, HIV panel (less likely but could have been exposed to something Pancreatic insufficiency 53993549 K86.89 recommenda tion and adding on assessment for pancreatit is Syncope symptom 45027822 5 R55 adding holter, r/o sick sinus syndrome or other arrhythmia Health Concerns Section Related Observation LastModified by Organization Detai ls LastModified Time None Recorded Concern Status LastModified by Organization Details LastModified Time None Recorded Advance Directives Directive None Recorded Payers Insurance Date Sequence Insurance Name Policy Number Policy Torrez Covered Member ID Torrez Member ID Guarantor Name 04/17/2025 1 [facility] ([facility]) [id number] Jaqueline Reese [id number] Jaqueline Reese 04/20/2025 1 [place] [facility] Jaqueline Reese [id number] Jaqueline Reese Notes Date Note Type Note Provider Name and Address Organization Details Recorded Time 4 text/html c/o incontinence the patient is getting surgery [...] also she could use LIBBY MONTEZ [address] [place], [address], [facility] 05/29/2024 10:30:53 4 text/html c/o sore throat patient is having swollen tonsil, pain with swallowing foods and liquidsswelling of her LN'gracie in the ears, R side is swollen with effusionL side is erythematous general fatigueno chest pain or sob the patient denies fever or chills had COVID a few weeks agoresidual inflammation resulting in sore throat no signs of peritonsillar abscessno muffled voice LIBBY MONTEZ [address] [place], [address], [facility] 09/16/2024 14:15:32 5 text/html c/o back pain and SI joint pain left the patient has been having intermittent back paindeveloped the original problem when she was 21 y/othe patient has pain in the left hip/SI jointloss of ROM with her left leg, can't extend to full ROM with her hip pain with ext and int rotation will start with XR def her hip joint LIBBY MONTEZ [address] [place], [address], [facility] 01/31/2025 10:42:51 5 text/html f/u menopause the patient is reporting significant [...] getting pre syncope and syncope LIBBY MONTEZ [address] [place] [address], [phone], [facility] 04/23/2025 12:00:15 5 text/html f/u hospital d/c Total time of appointment was 50 minutes after reviewing patient's symptoms, coming up with a plan for diagnosis, possible d/d/x and prognosis the patient reports that she ended up in the hospital in [place] due to syncopal episode and high fever the patient had her lab work completed, waiting on full results, they will be calling for her brain MRI to get it scheduled the patient had an incident this weekend where she passed out after developing a severe fever and a sudden drop of her glucose less than 30 (even after eating) the patient did a screen of the pancreas gallbladder at hospital CT abdomenthe patient reports that EKG was normal, still want to r/o any cardiac conditions that may be causing her symptomsr/o heart block, WPW, sick sinus the patient reports R knee had the procedure (replacement) the patient reports that her knee occasionally bothering her stillrecommended MRI knee r/o infection (smoldering infection of the joint after arthroscope) full panel order, imaging ordered STAT also adding serotonin panelunlikely but will r/o as a possibly given pt is on sertraline LIBBY MONTEZ [address] [facility], [place], [address], [facility] 04/30/2025 13:33:52 OBGyn Episode No OBEpisode recorded.
== END 2025-04-30 15:35 | disposition home or self-care (01) ==
LOC: HO.LAB 15:34
PROVIDERS: PCP Internal Medicine; Visit Provider Physician Assistant
DX: E16.2 Hypoglycemia, unspecified (principal); R50.9 Fever, unspecified; K86.89 Other specified diseases of pancreas
CPT/HCPCS: 86704; 86706; 86709; 87040; 87340

== ENCOUNTER 2025-05-05 09:14 | Outpatient (REF) | payer MEDICAID, SELFPAY ==
--- OUTSIDE RECORDS SUMMARY | 2025-05-05 10:00 | XMS_ITS | Data Portability ---
Author Organization [facility], Telehealth Patient Home Address [address] [place] [address] Assessment No assessment recorded. Plan of Treatment Reminders Order Date Submit Date Provider Last Modified By Organization Details Last Modified Time Details Appointments None recorded. Lab culture, blood 2 2024 025 [facility], [address] [place] [address], [address], 5 11:55:45 hepatitis panel (A+B+C), acute, serum 2024 025 [facility], [address] [place] [address], [address], 5 13:04:14 HIV 1+2 AB + HIV 1 p24 Ag, qualitativ e immunoassa y, serum 2024 025 [facility], [address] [place] [address], [address], 5 13:04:14 RPR (rapid plasma reagin), serum 2024 025 [facility], [address] [place] [address], [address], 5 13:04:14 serotonin, blood 2024 025 [facility], [address] [place] [address], [address], 5 13:21:55 lipase, serum or plasma 2024 025 [facility], [address] [place] [address], [address], 5 13:04:13 amylase, serum or plasma 2024 025 [facility], [address] [place] [address], [address], 5 13:04:13 pancreatic elastase, stool 2024 025 [facility], [address] [place] [address], 09[address], 5 13:04:14 insulin, serum 2024 025 [facility], [address] [place] [address], [address], 5 13:04:14 C-peptide, serum 2024 025 [facility], [address] [place] [address], 13[address], 5 13:04:13 cortisol, free, 24-hour urine 2024 025 [facility], [address] [place] [address], 614[address], 5 13:04:13 acth, plasma 2024 025 [facility], [address] [place] [address], [address], 5 13:04:14 hemoglobin A1c, QN, blood 2024 025 [facility], [address] [place] [address], [address], 5 13:04:13 lyme disease igg+igm, serum, reflex western blot 2024 025 [facility], [address] [place] [address], 34[address], 5 12:09:58 anaplasma phagocytop hilum + ehrlichia chaffeensi s IgG + IgM panel, serum 2024 025 [facility], [address] [place] [address], 18[address], 5 12:42:12 Rickettsia rickettsii IgM Ab, QN, serum 2024 025 [facility], [address] [place] [address], 130[address], 5 12:01:14 urinalysis complete, reflex culture 2024 025 [facility], [address] [place] [address], 27[address], 5 12:01:15 phosphorus , serum or plasma [address] [place] [address] Laboratory, [address] [place] [address], 360[address], 5 12:01:15 PTH (parathyro id hormone), intact + calcium, serum or plasma [address] [place] [address] Laboratory, [address] [place] [address], 56[address], 5 12:01:15 magnesium, serum or plasma [address] [place] [address] Laboratory, [address] [place] [address], 90[address], 5 12:01:14 estradiol, serum [address] [place] [address] Laboratory, [address] [place] [address], 245[address], 5 12:01:14 lh + FSH, serum 2024 025 [facility], [address] [place] [address], [address], 5 12:01:13 progestero ne, serum 2024 025 [facility], [address] [place] [address], 42380, 5 11:40:08 iron + TIBC + ferritin, serum 2024 025 [facility], [address] [place] [address], 87[address], 5 12:01:14 vitamin B12 + folate, serum or blood 2024 025 [facility], [address] [place] [address], 7[address], 5 12:01:14 TSH + free T4, serum 2024 025 [facility], [address] [place] [address], 69287, 5 12:01:14 vitamin D, 25-hydroxy , total, serum 2024 025 [facility], [address] [place] [address], [address], 5 12:01:14 CBC w/ auto diff 2024 025 [facility], [address] [place] [address], 064[address], 5 12:01:15 CMP, serum or plasma 2024 025 [facility], [address] [place] [address], 39131, 5 12:01:14 hemoglobin A1c, QN, blood 2024 025 [facility], [address] [place] [address], 77[address], 5 12:01:15 C-reactive protein, quantitati ve, serum or plasma 2024 025 [facility], [address] [place] [address], 76[address], 5 12:01:15 ESR (erythrocy te sedimentat ion rate), blood 2024 025 [facility], [address] [place] [address], 41657, 5 12:01:15 jasson-ba rr virus (ebv) IgG + IgM panel, serum 2024 025 [facility], [address] [place] [address], 290[address], 5 12:01:14 urinalysis complete, reflex culture 2023 024 [facility], [address] [place] [address], 868[address], 4 11:23:36 Referral None recorded. Procedures None recorded. Surgeries None recorded. Imaging US, echocardio gram 2024 025 [email or web address] [facility], [address] [place] [address], [address], 5 08:21:19 holter monitor 2024 025 [email or web address] [facility], [address] [place] [address], 295[address], 5 13:45:35 MRI, knee, w/o contrast - hx of scope of the knee, patient 2024 025 [facility], [address] [place], [address], 5 08:21:19 MRI, pancreas, w/wo contrast 2024 025 [facility], [address] [place], [address], 5 08:21:19 MRI, brain, w/wo contrast 2024 025 [facility], [address] [place], [address], 5 08:36:25 XR, hip + pelvis, unilateral , 2 or 3 view 2024 025 [facility], [address] [place], [address], 5 11:35:36 US, bladder 2023 024 [facility], [address] [place], [address], 4 08:08:22 Medication Orders tramadol 50 mg tablet 2024 025 [id number], [address] [place], [address], 5 11:21:59 Lidocaine Viscous 2 % mucosal solution 2023 025 [id number], [address] [place], [address], 5 11:21:41 prednisone 10 mg tablet 2023 025 [id number], [address] [place], [address], 5 10:38:04 Cipro 500 mg tablet 2023 025 [id number], [address] [facility], [place], [address], 5 10:15:27 Patient TargetsNo targets recorded. Patient InstructionsNo instructions recorded. Reason for Referral None Reported. Results Created Date Observation Date Name Description Value Unit Range Abnormal Flag Note LastModifiedBy Organization Detail LastModifiedTime 06/24/20 24 06/10/2024 US, bladd er No observ ation record ed. [email or web address] [facility] [address] [place], [address], 06/26/2024 11:01:21 10/25/20 24 10/21/2024 MAMMO , scree salvador, digit al, bilat eral No observ ation record ed. [email or web address] [facility] [address] [place] [address] [place], [address], 10/26/2024 15:39:12 02/05/20 25 02/03/2025 XR, hip + pelvi s, unila teral , 2 or 3 view No observ ation record ed. [facility] [address] [place], [address], 04/23/2025 11:18:09 03/05/20 25 03/04/2025 MRI, hip, w/o contr ast No observ ation record ed. [facility] (Medical Records) [address] [place], [address], 04/23/2025 11:18:09 Result Notes None recorded. Problems Name Problem SNOMED Code Status Onset Date Resolution Date Notes Provider Name and Address Organization Details Recorded Time Anxiety 52986603 Active 2019 [address] MONTEZ [address] [place] [address], [place], [address], [facility] 0 10:31:53 Depressiv e disorder 97333868 Active 2019 LIBBY MONTEZ [address] [place] [address], [address], [facility] 0 10:32:04 Facial swelling 662939664 Active 2021 LIBBY MONTEZ [address] [place] [address], [address], [facility] 2 12:30:06 Chronic sinusitis 80128206 Active 2021 LIBBY MONTEZ [address] [place] [address], [address], [facility] 2 10:25:49 Empyema of pleura 87536555 Active 2021 LIBBY MONTEZ [address] [place] [address], [address], [facility] 2 10:47:18 Pleurisy 768969132 Active 2021 LIBBY MONTEZ [address] [place] [address], [address], [facility] 2 10:47:24 Costal chondriti s 10474099 Active 2021 LIBBY MONTEZ [address] [place] [address], [address], [facility] 2 16:48:33 Infection of lacrimal gland 764736146 Active 2021 LIBBY MONTEZ [address] [place] [address], [address], [facility] 2 16:50:40 Candidias is of vagina 95674152 Active 2021 LIBBY MONTEZ [address] [place] [address], [address], [facility] 2 16:55:06 Pain of right knee joint 752396076405 100 Active 2021 LIBBY MONTEZ [address] [place], [address], [facility] 5 12:49:48 Low back pain 440418429 Active 2021 LIBBY MONTEZ [address] [place], [address], [facility] 2 16:59:41 Anand red spot 85179499 Active 2021 LIBBY MONTEZ [address] [place], [address], [facility] 2 17:09:19 Chronic recurrent sinusitis 986626344 Active 2021 LIBBY MONTEZ [address] [place] [address], [address], [facility] 2 16:55:17 Cervico-o ccipital neuralgia 40788795 Active 2021 LIBBY MONTEZ [address] [place], [address], [facility] 2 14:09:59 Deviated nasal septum 843797308 Active 2021 LIBBY MONTEZ [address] [place] [address], [address], [facility] 2 16:43:10 Wheezing 89234866 Active 2021 LIBBY MONTEZ [address] [place] [address], [address], [facility] 2 11:58:56 Nausea 825484294 Active 2022 LIBBY MONTEZ [address] [place], [address], [facility] 3 11:47:04 Menopause Active 2022 LIBBY MONTEZ [address] [place], [address], [facility] 3 10:58:45 Acne 58781803 Active 2022 LIBBY MONTEZ [address] [place], [address], [facility] 3 11:08:06 Tinmike pedis 1238793 Active 2022 LIBBY MONTEZ [address] [place] [address], [address], [facility] 3 11:13:56 Multiple benign melanocyt ic nevi 301928921 Active 2022 LIBBY MONTEZ [address] [place] [address], [address], [facility] 3 11:16:11 Degenerat lukasz lesion of articular cartilage of knee 067909817 Active 2022 LIBBY MONTEZ [address] [place] [address], [address], [facility] 3 15:25:10 Diverticu litis of colon 594512559 Active 2023 LIBBY MONTEZ [address] [place] [address], [address], [facility] 4 11:16:42 Urinary incontine nce 597755316 Active 2023 LIBBY MONTEZ [address] [place] [address], [address], [facility] 4 10:12:50 Dry eyes 856014201 Active 2023 LIBBY MONTEZ [address] [place] [address], [address], [facility] 4 11:33:04 COVID-19 418891242 Active 2023 LIBBY MONTEZ [address] [place] [address], [address], [facility] 4 09:55:13 Acute pharyngit is 690304259 Active 2023 LIBBY MONTEZ [address] [place] [address], [address], [facility] 4 14:07:08 Sore throat 074596709 Active 2023 LIBBY MONTEZ [address] [place], [address], [facility] 4 14:08:03 Pain of left hip joint 222929871655 100 Active 2024 LIBBY MONTEZ [address] [place], [address], [facility] 5 10:35:24 Tendiniti s of left gluteal tendon 435064319600 108 Active 2024 LIBBY MONTEZ [address] [place] [address], [address], [facility] 5 10:51:00 Fatigue 42003378 Active 2024 LIBBY MONTEZ [address] [place] [address], [address], [facility] 5 11:33:29 Headache disorder 418035089 Active 2024 LIBBY MONTEZ [address] [place] [address], [address], [facility] 5 11:36:06 Dizziness 684600429 Active 2024 LIBBY MONTEZ [address] [place] [address], [address], [facility] 5 11:37:06 Muscle pain 85917839 Active 2024 LIBBY MONTEZ [address] [place] [address], [address], [facility] 5 11:39:38 Finding of hand region 730210083 Active 2024 LIBBY MONTEZ [address] [place] [address], [address], [facility] 5 11:53:20 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 Active 2024 LIBBY MONTEZ [address] [place] [address], [address], [facility] 5 15:36:09 Hypoglyce bety 306761629 Active 2024 LIBBY MONTEZ [address] [place] [address], [address], [facility] 5 12:46:22 Palpitati ons 16477936 Active 2024 LIBBY MONTEZ [address] [place] [address], [address], [facility] 5 12:50:23 Pyrexia of unknown origin 6790120 Active 2024 LIBBY MONTEZ [address] [place] [address], [address], [facility] 5 12:53:09 Pancreati c insuffici ency 97205067 Active 2024 LIBBY MONTEZ [address] [place] [address], [address], [facility] 5 12:55:04 Syncope symptom 535650812 Active 2024 LIBBY MONTEZ [address] [place] [address], [address], [facility] 5 13:03:52 Problem Notes None recorded. Medical Equipment None Reported. Allergies Allergen ID Allergen Name Allergen Category Reaction Reaction Severity Criticality Documentation Date Start Date Code Code System Note Provider Name and Address Organization Details Recorded Time 6112 naproxen medicatio n Not available Not available Not available 09/16/2022 7258 RxNorm Juliann ewing [facility] 2 14:03:13 8173 tree nut food anaphylax is Not available [facility] 05/29/2024 68452 UNK Coleman ewing [facility] 4 09:52:29 8494 iodine medicatio n vomiting Not available Not available 09/16/2024 5933 [facility] 4 13:57:37 9051 tramadol medicatio n Not available Not available [facility] 04/23/2025 11464 RxNorm LIBBY Tomlin SI [address] [place], [address], [facility] 5 11:35:01 Medications Name Sig [...] Not Available valacyclovi r 1 gram tablet TAKE 1 TABLET BY MOUTH EVERY 12 HOURS FOR 30 DAYS active Not Available Not Available No t Available hydrocodone 5 mg-acetamin ophen 325 mg [...] ONE TABLET BY MOUTH EVERY DAY WITH THE 25MG TABLET active Not Available Not Available No t Available progesteron e micronized 100 mg capsule TAKE 2 CAPSULES BY MOUTH EVERY DAY active Not Available Not Available No t Available amoxicillin 875 mg-potassiu m clavulanate 125 mg tablet TAKE ONE [...] Updated DateTime 5 165.1 cm 40.4 kg/m2 299912. 95 g 68 /min 98 % 98 % 118 mm[Hg] 78 mm[Hg] Coleman Zelaya [facility] 5 10:16:57 Date Recorded Body height Body mass index (BMI) Body weight Heart rate Oxygen saturation Oxygen saturation in Arterial blood by Pulse oximetry Systolic blood pressure Diastolic blood pressure Provider Name and Address Organization Details Last Updated DateTime 5 165.1 cm 37.2 kg/m2 875626. 25 g 70 /min 94 % 94 % 110 mm[Hg] 72 mm[Hg] Anna Sommer [facility] 5 11:09:14 Date Recorded Body height Body mass index (BMI) Body weight Heart rate Oxygen saturation Oxygen saturation in Arterial blood by Pulse oximetry Systolic blood pressure Diastolic blood pressure Provider Name and Address Organization Details Last Updated DateTime 5 165.1 cm 37.1 kg/m2 966942. 1 g 70 /min 98 % 98 % 110 mm[Hg] 64 mm[Hg] Hailey Huizar [facility] 5 12:33:09 Date Recorded Body height Body mass index (BMI) Body weight Heart rate Oxygen saturation Oxygen saturation in Arterial blood by Pulse oximetry Systolic blood pressure Diastolic blood pressure Provider Name and Address Organization Details Last Updated DateTime 4 165.1 cm 39.8 kg/m2 288874. 58 g 66 /min 98 % 98 % 134 mm[Hg] 74 mm[Hg] Coleman Zelaya [facility] 4 09:49:18 Date Recorded Body height Body mass index (BMI) Body weight Heart rate Oxygen saturation Oxygen saturation in Arterial blood by Pulse oximetry Systolic blood pressure Diastolic blood pressure Provider Name and Address Organization Details Last Updated DateTime 4 165.1 cm 39.6 kg/m2 361663. 7 g 68 /min 98 % 98 % 124 mm[Hg] 72 mm[Hg] Anna Sommer [place] Korin [facility] 4 13:59:29 Social History Question Answer Notes LastModified by Organizat ion Details LastModified Time Tobacco Smoking Status Former Smoker Not Available [facility] 09/15/2020 03:36:24 What Was The Date Of Your Most Recent Tobacco Screening? 04/30/2025 Information not available 04/30/2025 Sex: Unknown Functional [...] 50 mcg/0.25mL dose 1 completed Not Available [facility] 11/09/2022 14:44:14 Influenza, split virus, quadrivalent, preservative 0 completed Not Available [facility] 11/09/2022 14:44:14 COVID-19, mRNA, LNP-S, PF, 30 mcg/0.3 mL dose 1 completed Not Available [facility] 11/09/2022 14:44:14 COVID-19, mRNA, LNP-S, PF, 30 mcg/0.3 mL dose 1 completed Not Available [facility] 11/09/2022 14:44:14 Past Encounters Encounter ID Performer Location Encounter Start Date Encounter Closed Date Diagnosis/Indication Diagnosis SNOMED-CT Code Diagnosis ICD10 Code Diagnosis Note [id number] DO [facility] [address] [facility],[place] [address] 06/17/2020 09:11:31 06/17/2020 09:41:43 Screening mammography 14842965 Z12.31 needs a mammogram scheduled Gynecologi c examination 41685848 Z01.419 needs a pap performed, sent out to refrigeration houseman Abdominal pain 15866485 R10.9 will check to see if she to has a positive EBV antigen [id number] Bryce Rolle DO [facility] [address] [facility],[place] [address] 07/17/2020 10:07:16 07/17/2020 10:37:24 Premenopausal amenorrhea 39763635 N91.2 will check FSH and see if she is in premenopau se Anxiety 96492117 F41.9 will try on sertraline and see if she has any benefit with it will let me know if she needs an increased dosage Hypertensive disorder 38 090272 I10 normally really good very stressed today will monitor for it [id number] Bryce Rolle DO [facility] [address] [facility], [place] [address] 10/14/2020 08:13:27 10/14/2020 10:45:13 Anxiety 66925896 F41.9 doing much better on the zoloft, feeling much better with decreased symptoms Depressive disorder 3548 9007 F32.9 stable now on medication [id number] Bryce Rolle DO [facility] [address] [facility] [address] [address] [facility] [place] [place] [address] 11/09/2020 09:14:42 11/09/2020 10:44:44 Pain of right ankle joint 0881539628 0726279 M25.571 will set up for XR to r/o fracture, from the presentati on and symptoms possible Grade 3 sprain will fu after XR, discussed order for crutches and brace Anxiety 82274137 F41.9 doing much better on the zoloft, feeling much better with decreased symptoms Depressive disorder 3548 9007 F32.9 stable now on medication [id number] Bryce Rolle DO [facility] [address] [facility] [place] [facility] [place] [place] [place] [address] 04/21/2021 13:58:17 04/21/2021 14:22:05 Pain of left temporomandibular joint 0004909096 1352273 M26.622 left TMJ will treat with MSK relaxer and anti-infla mmatory [id number] Bryce Rolle DO [facility] [address] [facility] [address],[place] [address] 06/04/2021 13:37:06 06/04/2021 14:06:37 Depressive disorder 43633232 F32.9 [id number] Bryce Rolle [facility] [address] [facility] [address] [place] [address] 07/07/2021 13:42:30 07/07/2021 14:22:24 Depressive disorder 35239056 F32.9 seems to be ok with feeling down Anxiety 70244224 F41.9 [place] [id number] Bryce Rolle [facility] [address] [facility] [address] [place] [address] 09/22/2021 09:45:13 09/22/2021 12:12:40 Allergy to nut 38595835 Z91.018 needs refill Active or passive immunization 109274687 Z23 stablenorm al reaction to vaccineboo ster shot with moderna Anxiety 32405955 F41.1 doing much better on the zoloft, feeling much better with decreased symptoms Depressive disorder 3548 9007 F32.0 stable now on medication [id number] Bryce Rolle [facility] [address] [facility] [address] [place] [address] 11/23/2021 08:09:25 11/23/2021 17:24:33 Pain in right hand 1319160954 08722 M79.641 will fu with repeat XR to r/o fracture [id number] Bryce Rolle [facility] [address] [facility] [address] [place] [address] 06/08/2022 10:33:52 06/08/2022 16:45:19 Anxiety 59550755 F41.1 stable Depressive disorder 3548 9007 F32.0 stable on medication [id number] Bryce Rolle [facility] [address] [facility] [address] [place] [address] 08/31/2022 09:12:34 08/31/2022 11:53:29 Chronic sinusitis 89388059 J32.[address] since her XR is negativewi ll start on Cipro 500 mg BID for 7 days [id number] Bryce Rolle [facility] [address] [place] [address] 09/07/2022 16:09:02 09/09/2022 09:05:07 Infection of lacrimal gland 334564233 H04.012 will start on ofloxacin and warm compresses Pleurisy 368021772 R09.1 will start on short course of colchicine Candidiasis of vagina 72 759093 B37.31 will restart Pain of ri ght knee joint 6506344244 39372 M25.561 will f/u with XR right knee for evaluation after injury Low back pain 986740252 M54.59 will f/u with XR low back for evaluation after injury Anand red spot 45267049 H35.89 most likely related to vaccinenew reports released confirming this [id number] Bryce Rolle [facility] [address] [address] 09/16/2022 14:00:38 09/19/2022 09:50:41 Cervico-occipital neuralgia 42356632 M54.81 will start on gabapentin and prednisone Chronic sinusitis 197915 [address] is happening on Monday Facial swelling 77315507 6 R22.0 will readjust her pred taperstart on gabapentin and budesonide spray [id number] Bryce Rolle [facility] [address] [address] 11/08/2022 11:28:28 11/08/2022 13:14:29 Wheezing [id number] R06.2 will fu with XR chest for possible pna vs costal chondritis [id number] Bryce Rolle [facility] [address] [address] 08/01/2023 10:26:45 08/01/2023 11:30:57 Anxiety 66863931 F41.1 stable Depressive disorder 1088 9007 F32.0 stable on medication Menopause [id number] N95. 1 will set up with HRT Acne 94150648 L70.8 will start back on clindamyci n Tinea pedis 1295850 B35. 3 will set up with oral medication Multiple b enign melanocytic nevi 599375908 D22.9 will set up with derm Pain of ri ght knee joint [id number] 68878 M25.561 needs more imaging will need MRI after [id number] Bryce Rolle [facility] [address] [facility],[place] [address] 05/29/2024 09:41:43 05/29/2024 12:05:28 Depression screening [id number] Z13.31 negative Depressive disorder 3548 9007 F32.0 stable on medication Urinary incontinence 165 070782 N39.3 will set up with urine sample and US bladder [id number] Bryce Rolle [facility] [address] [facility], [place] [address] 09/16/2024 13:48:13 09/16/2024 15:42:16 Acute pharyngitis 488493952 J02.8 start on prednisone Sore throat 545669484 J0 2.8 as needed [id number] Bryce Rolle [facility] [address] [facility], [place] [address] 01/31/2025 10:11:21 01/31/2025 14:20:26 Low back pain 779108022 M54.59 will f/u with XR low back for evaluation after injury Pain of le ft hip joint 9624542712 45448 M25.552 will set up with the XR hip Pain of ri ght ankle joint 0591837722 3591528 M25.571 will set up for XR to r/o fracture, from the presentati on and symptoms possible Grade 3 sprain will fu after XR, discussed order for crutches and brace [id number] Bryce Rolle [facility] [address] [facility],[place] [address] 04/23/2025 10:59:57 04/23/2025 13:58:57 Menopause 552601012 N95.1 continue on treatment Depression screening 171 225500 Z13.31 negative History of vaccination 559859907 Z92.29 recommende d Tdap, Shingles, Fatigue 95932403 R53.83 recommende d full work up Menopause present 106081 006 Z78.0 will set up with HRT Headache disorder 810221 009 G44.89 will set up with lab work Dizziness 693284487 R42 will set up with lab work Muscle pain 15936051 M79 .10 will fu with lab work Finding of hand region 875346130 R25.1 ?neuro-deg enerative disorder [id number] Bryce Rolle, [facility] [address],[place] [address] 04/30/2025 11:49:53 04/30/2025 13:45:34 Dizziness 472022191 R42 continues Hypoglycemia 184037556 E 16.2 additional work up for hypoglycem ia Pain of ri ght knee joint 0064589852 53244 M25.561 recommende d MRI knee, f/u septic joint after recent athroscope Palpitations 92867138 R0 0.2 adding on US echo, r/o endocardit is or other infectious /inflammat ory process Pyrexia of unknown origin 2103112 R50.9 set up with additional blood culture, hep panel, HIV panel (less likely but could have been exposed to something Pancreatic insufficiency 54627422 K86.89 recommenda tion and adding on assessment for pancreatit is Syncope symptom 19272469 5 R55 adding holter, r/o sick sinus syndrome or other arrhythmia Health Concerns Section Related Observation LastModified by Organization Detai ls LastModified Time None Recorded Concern Status LastModified by Organization Details LastModified Time None Recorded Advance Directives Directive None Recorded Payers Insurance Date Sequence Insurance Name Policy Number Policy Torrez Covered Member ID Torrez Member ID Guarantor Name 04/17/2025 1 [facility] ([facility]) [id number] Jaqueline Reese [id number] Jaqueline Reese 04/20/2025 1 [place] [facility] Jaqueline Reese [id number] Jaqueline Reese Notes Date Note Type Note [...] also she could use LIBBY MONTEZ [address] [place], [address], [facility] 05/29/2024 10:30:53 4 text/html [...] peritonsillar abscessno muffled voice LIBBY MONTEZ [address] [facility], [place], [address], [facility] 09/16/2024 14:15:32 5 text/html [...] def her hip joint LIBBY MONTEZ [address] [place], [address], [facility] 01/31/2025 10:42:51 5 text/html f/u menopause the patient is reporting significant symptoms: the patient is doing great with her R knee after her surgerythe patient is getting SI joint injection and a hip injection the patient is working with [facility] the patient is here for f/u [...] pre syncope and syncope LIBBY MONTEZ [address] [place], [address], [facility] 04/23/2025 12:00:15 5 text/html [...] pt is on sertraline LIBBY MONTEZ [address] [place], [address], [facility] 04/30/2025 13:33:52 OBGyn Episode No OBEpisode recorded.
[2025-05-05 10:40] LABS: Estimated Average Glucose 111 mg/dL; Hemoglobin A1c % 5.5 % (<6.0)
[2025-05-05 11:19] LABS: Syphilis Screen Nonreactive (Nonreactive)
[2025-05-05 11:20] LABS: HBS Num1 0.18 mIU/mL (0-7.99); HBc Num1 0.04 S/CO (0.00-0.79); HIV AB/AG Nonreactive (Nonreactive); HIV Num 1 0.05 S/CO (0.00-0.99); Hepatitis A Antibody IgM 0.21 Index (0-0.79); Hepatitis B Core Antibody Nonreactive (Nonreactive); Hepatitis B Surface Antigen Negative (Negative); ~HepC Num1 0.08 S/CO (0.00-0.79); ~Hepatitis A Antibody IgM Nonreactive (Nonreactive); ~Hepatitis B Surface Antibody NONREACTIVE (Nonreactive); ~Hepatitis C Antibody Nonreactive (Nonreactive)
[2025-05-08 20:49] LABS: Adrenocorticotropic Hormone 19 pg/mL (6-50)
[2025-05-10 01:43] LABS: Pancreatic Elastase-1 >800 mcg/g (>200)
[2025-05-12 12:23] LABS: Cortisol Free, 24 Hr Urine 16.4 mcg/24 h (4.0-50.0); Creatinine, 24 Hr Urine 1.09 g/24 h (0.50-2.15); Total Volume, 24 Hr Urine 1750 mL
== END 2025-05-05 09:15 | disposition home or self-care (01) ==
LOC: HO.LAB 09:14
PROVIDERS: PCP Dermatology Procedural Dermatology; Visit Provider Physician Assistant
DX: E16.2 Hypoglycemia, unspecified (principal); R50.9 Fever, unspecified; K86.89 Other specified diseases of pancreas
CPT/HCPCS: 82024; 82530; 82656; 83036; 86704; 86706; 86709; 86780; 86803; 87340; 87389

== ENCOUNTER → 2025-05-07 13:52 | Outpatient (REF) | payer MEDICAID, SELFPAY ==
--- NOTE | 2025-05-07 13:57 | CA_ITS ---
Transthoracic Echocardiogram Patient (Last, First, Middle): Alicia Reese S Gender: Female Date of : 1975 Age: 50 Procedure Date: 05/07/2025 Procedure Type: Transthoracic Echocardiogram Location: OP Height: 165.1 cm Weight: 95.26 kg BSA: 2.02 m2 Heart Rate: bpm BP: 112 / 72 mmHg Coagulant Dipper: TO Referring MD: Desiree SOUZA Symptoms: GIRISH.2 PALPITATIONS Study Quality: Fair ECG Rhythm: Sinus Conclusions: - The left ventricular systolic function is normal. The calculated ejection fraction is 66% by biplane method. - No obvious valvular pathology seen on this study. Findings Left Ventricle Normal left ventricular cavity size. There is normal left ventricular wall thickness. The left ventricular systolic function is normal. The calculated ejection fraction is 66% by biplane method. There is no evidence of regional wall motion abnormalities. Diastolic function is normal for age. Right Ventricle Normal right ventricular cavity size and systolic function. Atria Both atria are normal in size. Aortic Valve There is a normal trileaflet aortic valve. There is no aortic valve stenosis. There is no aortic valve regurgitation. Mitral Valve The mitral valve appears normal. There is no mitral valve regurgitation. There is no mitral valve stenosis. Pulmonic Valve The pulmonic valve is likely normal. Tricuspid Valve There is trace tricuspid valve regurgitation. There is no evidence of pulmonary hypertension. Great Vessels The asc aorta is normal in size. Venous The inferior vena cava is normal in size and collapses greater than 50% with inspiration. Pericardium/Pleural There is no evidence of pericardial effusion. Prior Study Comparison No prior study available for comparison. Recommendations, Care & Conclusions No obvious valvular pathology seen on this study. Measurements 2D Linear Measurements IVSd: 0.97 0.6-0.9/0.6-1.0 cm LVIDd: 4.24 3.9-5.3/4.2-5.9 cm LVIDd Index: 2.10 2.4-3.2/2.2-3.1 cm/m2 LVIDs: 2.64 2.0-3.6 cm LVPWd: 0.88 0.7-1.1 cm LA Diam: 3.20 2.7-3.8/3.0-4.0 cm LAIDs Index: 1.58 1.5-2.3 cm/m2 LV Mass: 154.82 67-162/88-224 g LV Mass Index: 76.64 43-95/49-115 g/m2 LVOT Diam: 2.20 3.0+(-)1.3 cm 2D Systolic Function EF 4C: 66.20 >55% EF 2C: 65.80 >55% EF BiP: 65.60 >55% Mitral Valve MV Pk E: 0.81 MV PK A: 0.49 MV Decel Time: 172.00 E/A: 1.70 E'Lateral: 9.68 E'Medial: 8.16 E/E' Med: 10.00 E/E' Lat: 8.40 PHT: 51.00 MVA PHT: 4.31 Decel [place]: 4.72 Aortic Valve AoV Pk Hunter: 1.16 AoV Mn Hunter: 0.84 AoV VTI: 0.27 AoV Pk Grad: 5.00 Aov Mn Grad: 3.00 SHERLYN Cont.VTI: 3.30 LVOT LVOT Pk Hunter: 1.16 LVOT Mn Hunter: 0.70 LVOT VTI: 0.24 LVOT Pk Grad: 5.00 LVOT Mn Grad: 2.00 LVOT Diam: 2.20 LVOT Area: 3.80 Diastolic Function MV Pk E: 0.81 MV Pk A: 0.49 E/A: 1.70 E'Medial: 8.16 E/E' Med: 10.00 E' Laterial: 9.68 E/E' Lat: 8.40 Right Ventricle TAPSE (mm): 20.70 TVS' Hunter: 12.60 Tricuspid Valve RA Press: 8.00 Great Vessels Aorta Sinus of Valsalva: 3.28 2.0-3.5 cm Ao Asc: 3.40 2.1-3.4 cm Updated in Other Vendor System with Status of Final Anil Marie MD electronically signed on 05/08/2025 10:29:57 AM with status of Final
--- NOTE | 2025-05-07 13:58 | HM_ITS ---
Cardiac event monitor Indication: Palpitations Technique: Patient was hooked up to cardiac event monitor from 05/07/2025 to 06/06/2025 for total period of 30 days. Total wear time was only 4.2 days Findings: Baseline was normal sinus rhythm with average heart of 66 beats per minute. Lowest heart rate was 41 beats per minute sinus bradycardia and a maximum heart rate 120 beats per minute in sinus tachycardia. Patient has sinus rhythm 99.93% of the time. There were no significant pauses or av conduction abnormality noted. Patient had very rare PACs which isolated without any significant tachyarrhythmias. Patient marked the counter 2 times without any reported symptoms correlating with sinus rhythm. Conclusion: 1. Baseline was normal sinus rhythm with no pauses 2. Very rare PACs 3. Patient reported 2 symptoms correlated with sinus rhythm MTDD
--- OUTSIDE RECORDS SUMMARY | 2025-05-07 16:34 | XMS_ITS | Data Portability ---
Author Organization [facility], Telehealth Patient Home Address [address] [place] [address] Assessment No assessment recorded. Plan of Treatment Reminders Order Date Submit Date Provider Last Modified By Organization Details Last Modified Time Details Appointments None recorded. Lab culture, blood 2 2024 025 [facility], [address] [place] [address], [address], 5 11:55:45 hepatitis panel (A+B+C), acute, serum 2024 025 [facility], [address] [place] [address], [address], 5 13:04:14 HIV 1+2 AB + HIV 1 p24 Ag, qualitativ e immunoassa y, serum 2024 025 [facility], [address] [place] [address], [address], 5 13:04:14 RPR (rapid plasma reagin), serum 2024 025 [facility], [address] [place] [address], [address], 5 13:04:14 serotonin, blood 2024 025 [facility], [address] [place] [address], [address], 5 13:21:55 lipase, serum or plasma 2024 025 [facility], [address] [place] [address], 47[address], 5 13:04:13 amylase, serum or plasma 2024 025 [facility], [address] [place] [address], 29[address], 5 13:04:13 pancreatic elastase, stool 2024 025 [facility], [address] [place] [address], 83[address], 5 13:04:14 insulin, serum 2024 025 [facility], [address] [place] [address], 1979[address], 5 13:04:14 C-peptide, serum 2024 025 [facility], [address] [place] [address], [address], 5 13:04:13 cortisol, free, 24-hour urine 2024 025 [facility], [address] [place] [address], 78[address], 5 13:04:13 acth, plasma 2024 025 [facility], [address] [place] [address], [address], 5 13:04:14 hemoglobin A1c, QN, blood 2024 025 [facility], [address] [place] [address], [address], 5 11:47:53 lyme disease igg+igm, serum, reflex western blot 2024 [facility], [address] [place] [address], 60[address], 5 12:09:58 anaplasma phagocytop hilum + ehrlichia chaffeensi s IgG + IgM panel, serum 2024 [facility], [address] [place] [address], 614[address], 5 12:42:12 Rickettsia rickettsii IgM Ab, QN, serum 2024 [facility], [address] [place] [address], 823[address], 5 12:01:14 urinalysis complete, reflex culture 2024 [facility], [address] [place] [address], 164[address], 5 12:01:15 phosphorus , serum or plasma [address] [place] [address] Laboratory, [address] [place] [address], 8[address], 5 12:01:15 PTH (parathyro id hormone), intact + calcium, serum or plasma [address] [place] [address] Laboratory, [address] [place] [address], 74[address], 5 12:01:15 magnesium, serum or plasma [address] [place] [address] Laboratory, [address] [place] [address], 30[address], 5 12:01:14 estradiol, serum [address] [place] [address] Laboratory, [address] [place] [address], 29[address], 5 12:01:14 lh + FSH, serum 2024 025 [facility], [address] [place] [address], 58860, 5 12:01:13 progestero ne, serum 2024 025 [facility], [address] [place] [address], 6[address], 5 11:40:08 iron + TIBC + ferritin, serum 2024 025 [facility], [address] [place] [address], 67[address], 5 12:01:14 vitamin B12 + folate, serum or blood 2024 025 [facility], [address] [place] [address], 31351, 5 12:01:14 TSH + free T4, serum 2024 025 [facility], [address] [place] [address], 51033, 5 12:01:14 vitamin D, 25-hydroxy , total, serum 2024 025 [facility], [address] [place] [address], 04763, 5 12:01:14 CBC w/ auto diff 2024 025 [facility], [address] [place] [address], 91100, 5 12:01:15 CMP, serum or plasma 2024 025 [facility], [address] [place] [address], 46710, 5 12:01:14 hemoglobin A1c, QN, blood 2024 025 [facility], [address] [place] [address], 83927, 5 12:01:15 C-reactive protein, quantitati ve, serum or plasma 2024 025 [facility], [address] [place] [address], 20141, 5 12:01:15 ESR (erythrocy te sedimentat ion rate), blood 2024 [facility], [address] [place] [address], 09594, 5 12:01:15 jasson-ba rr virus (ebv) IgG + IgM panel, serum 2024 025 [facility], [address] [place] [address], 41194, 5 12:01:14 urinalysis complete, reflex culture 2023 024 [facility], [address] [place] [address], 09155, 4 11:23:36 Referral None recorded. Procedures None recorded. Surgeries None recorded. Imaging US, echocardio gram 2024 025 [email or web address] Central Scheduling, [address] [place] [address], [address], 5 08:21:19 holter monitor 2024 025 [facility] Central Scheduling, [address] [place] [address], 847[address], 5 16:38:10 MRI, knee, w/o contrast - hx of scope of the knee, patient 2024 025 [facility], [address] [place], [address], 5 08:21:19 MRI, pancreas, w/wo contrast 2024 025 [facility] Central Scheduling, [address] [place], [address], 5 08:21:19 MRI, brain, w/wo contrast 2024 025 [facility], [address] [place], [address], 5 08:24:18 XR, hip + pelvis, unilateral , 2 or 3 view 2024 025 [facility] Scheduling, [address] [place], [address], 5 11:35:36 US, bladder 2023 024 [facility] Scheduling, [address] [place], [address], 4 08:08:22 Medication Orders tramadol 50 mg tablet 2024 025 [id number], [address] [place], [address], 5 11:21:59 Lidocaine Viscous 2 % mucosal solution 2023 025 [id number], [address] [place], [address], 5 11:21:41 prednisone 10 mg tablet 2023 025 [id number], [address] [place], [address], 10:38:04 Cipro 500 mg tablet 2023 025 [id number], [address] [facility], [place], [address], 10:15:27 Patient TargetsNo targets recorded. Patient InstructionsNo instructions recorded. Reason for Referral None Reported. Results Created Date Observation Date Name Description Value Unit Range Abnormal Flag Note LastModifiedBy Organization Detail LastModifiedTime 06/24/20 24 06/10/2024 US, bla er No observ ation record ed. [email or web address] [facility] Central Scheduling [address] [place], [address], 06/26/2024 11:01:21 10/25/20 24 10/21/2024 MAMMO , scree salvador, digit al, bilat eral No observ ation record ed. [email or web address] [facility] [address] [place] [address] [place], [address], 10/26/2024 15:39:12 02/05/20 25 02/03/2025 XR, hip + pelvi s, unila teral , 2 or 3 view No observ ation record ed. [facility] Central Scheduling [address] [place], [address], 04/23/2025 11:18:09 03/05/20 25 03/04/2025 MRI, hip, w/o contr ast No observ ation record ed. [facility] (Medical Records) [address] [place], [address], 04/23/2025 11:18:09 Result Notes None recorded. Problems Name Problem SNOMED Code Status Onset Date Resolution Date Notes Provider Name and Address Organization Details Recorded Time Anxiety 56911826 Active 2019 LIBBY MONTEZ [address] [facility], [place], [address], [facility] 0 10:31:53 Depressiv e disorder 51089086 Active 2019 LIBBY MONTEZ [address] [place] [address], [address], [facility] 0 10:32:04 Facial swelling 034496639 Active 2021 LIBBY MONTEZ [address] [place] [address], [address], [facility] 2 12:30:06 Chronic sinusitis 91022781 Active 2021 LIBBY MONTEZ [address] [place] [address], [address], [facility] 2 10:25:49 Empyema of pleura 80381728 Active 2021 LIBBY MONTEZ [address] [place] [address], [address], [facility] 2 10:47:18 Pleurisy 212860122 Active 2021 LIBBY MONTEZ [address] [place] [address], [address], [facility] 2 10:47:24 Costal chondriti s 37511153 Active 2021 LIBBY MONTEZ [address] [place] [address], [address], [facility] 2 16:48:33 Infection of lacrimal gland 065019730 Active 2021 LIBBY MONTEZ [address] [place] [address], [address], [facility] 2 16:50:40 Candidias is of vagina 44390016 Active 2021 LIBBY MONTEZ [address] [place] [address], [address], [facility] 2 16:55:06 Pain of right knee joint 434305304044 100 Active 2021 LIBBY MONTEZ [address] [place] [address] [place], [address], [facility] 5 12:49:48 Low back pain 514391993 Active 2021 LIBBY MONTEZ [address] [place], [address], [facility] 2 16:59:41 Anand red spot 11685873 Active 2021 LIBBY MONTEZ [address] [place], [address], [facility] 2 17:09:19 Chronic recurrent sinusitis 400234166 Active 2021 LIBBY MONTEZ [address] [place] [address], [address], [facility] 2 16:55:17 Cervico-o ccipital neuralgia 16073677 Active 2021 LIBBY MONTEZ [address] [place] [address], [address], [facility] 2 14:09:59 Deviated nasal septum 403517949 Active 2021 LIBBY MONTEZ [address] [place] [address], , [facility] 2 16:43:10 Wheezing 20510714 Active 2021 LIBBY MONTEZ [address] [place] [address], [address], [facility] 2 11:58:56 Nausea 878717897 Active 2022 LIBBY MONTEZ [address] [place] [address], [address], [facility] 3 11:47:04 Menopause Active 2022 LIBBY MONTEZ [address] [place] [address], [address], [facility] 3 10:58:45 Acne 33153213 Active 2022 LIBBY MONTEZ [address] [place], [address], [facility] 3 11:08:06 Tinea pedis 3401237 Active 2022 LIBBY MONTEZ [address] [place] [address], [address], [facility] 3 11:13:56 Multiple benign melanocyt ic nevi 444409838 Active 2022 LIBBY MONTEZ [address] [place] [address], [address], [facility] 3 11:16:11 Degenerat lukasz lesion of articular cartilage of knee 760219369 Active 2022 LIBBY MONTEZ [address] [place] [address], [address], [facility] 3 15:25:10 Diverticu litis of colon 318762662 Active 2023 LIBBY MONTEZ [address] [place] [address], [address], [facility] 4 11:16:42 Urinary incontine nce 612167877 Active 2023 LIBBY MONTEZ [address] [place] [address], [address], [facility] 4 10:12:50 Dry eyes 744898891 Active 2023 LIBBY MONTEZ [address] [place] [address], [address], [facility] 4 11:33:04 COVID-19 626690215 Active 2023 LIBBY MONTEZ [address] [place] [address], [address], [facility] 4 09:55:13 Acute pharyngit is 957458410 Active 2023 LIBBY MONTEZ [address] [place] [address], [address], [facility] 4 14:07:08 Sore throat 435639332 Active 2023 LIBBY MONTEZ [address] [place], [address], [facility] 4 14:08:03 Pain of left hip joint 558161602740 100 Active 2024 LIBBY MONTEZ [address] [place], [address], [facility] 5 10:35:24 Tendiniti s of left gluteal tendon 529085805693 108 Active 2024 LIBBY MONTEZ [address] [place] [address], [address], [facility] 5 10:51:00 Fatigue 18188541 Active 2024 LIBBY MONTEZ [address] [place] [address], [address], [facility] 5 11:33:29 Headache disorder 232106518 Active 2024 LIBBY MONTEZ [address] [place] [address], [address], [facility] 5 11:36:06 Dizziness 259560619 Active 2024 LIBBY MONTEZ [address] [place] [address], [address], [facility] 5 11:37:06 Muscle pain 20774990 Active 2024 LIBBY MONTEZ [address] [place] [address], [address], [facility] 5 11:39:38 Finding of hand region 483002242 Active 2024 LIBBY MONTEZ [address] [place] [address], [address], [facility] 5 11:53:20 Jasson-B arr virus disease 132673324 Active 2024 LBIBY MONTEZ [address] [place] [address], [address], [facility] 5 15:36:09 Hypoglyce bety 309221540 Active 2024 LIBBY MONTEZ [address] [place] [address], [address], [facility] 5 12:46:22 Palpitati ons 06613454 Active 2024 LIBBY MONTEZ [address] [place] [address], [address], [facility] 5 12:50:23 Pyrexia of unknown origin 0221668 Active 2024 LIBBY MONTEZ [address] [place] [address], [address], [facility] 5 12:53:09 Pancreati c insuffici ency 20720709 Active 2024 LIBBY MONTEZ [address] [place] [address], [address], [facility] 5 12:55:04 Syncope symptom 167554804 Active 2024 LIBBY MONTEZ [address] [place] [address], [address], [facility] 5 13:03:52 Problem Notes None recorded. Medical Equipment None Reported. Allergies Allergen ID Allergen Name Allergen Category Reaction Reaction Severity Criticality Documentation Date Start Date Code Code System Note Provider Name and Address Organization Details Recorded Time 6112 naproxen medicatio n Not available Not available Not available 09/16/2022 7258 RxNorm Juliann ewing [facility] 2 14:03:13 8173 tree nut food anaphylax is Not available [facility] 05/29/2024 44012 UNK Coleman ewing [facility] 4 09:52:29 8494 iodine medicatio n vomiting Not available Not available 09/16/2024 5933 RxNorm Anna ewing [facility] 4 13:57:37 9051 tramadol medicatio n Not available Not available [facility] 04/23/2025 80792 RxNorm LIBBY Tomlin SI [address] [place], [address], [facility] 5 11:35:01 Medications Name Sig [...] Updated DateTime 5 165.1 cm 40.4 kg/m2 199129. 95 g 68 /min 98 % 98 % 118 mm[Hg] 78 mm[Hg] Coleman Zelaya [facility] 5 10:16:57 Date Recorded Body height Body mass index (BMI) Body weight Heart rate Oxygen saturation Oxygen saturation in Arterial blood by Pulse oximetry Systolic blood pressure Diastolic blood pressure Provider Name and Address Organization Details Last Updated DateTime 5 165.1 cm 37.2 kg/m2 153922. 25 g 70 /min 94 % 94 % 110 mm[Hg] 72 mm[Hg] Anna Sommer [facility] 5 11:09:14 Date Recorded Body height Body mass index (BMI) Body weight Heart rate Oxygen saturation Oxygen saturation in Arterial blood by Pulse oximetry Systolic blood pressure Diastolic blood pressure Provider Name and Address Organization Details Last Updated DateTime 5 165.1 cm 37.1 kg/m2 980197. 1 g 70 /min 98 % 98 % 110 mm[Hg] 64 mm[Hg] Hailey Huizar [facility] 5 12:33:09 Date Recorded Body height Body mass index (BMI) Body weight Heart rate Oxygen saturation Oxygen saturation in Arterial blood by Pulse oximetry Systolic blood pressure Diastolic blood pressure Provider Name and Address Organization Details Last Updated DateTime 4 165.1 cm 39.8 kg/m2 505670. 58 g 66 /min 98 % 98 % 134 mm[Hg] 74 mm[Hg] Coleman Zelaya [facility] 4 09:49:18 Date Recorded Body height Body mass index (BMI) Body weight Heart rate Oxygen saturation Oxygen saturation in Arterial blood by Pulse oximetry Systolic blood pressure Diastolic blood pressure Provider Name and Address Organization Details Last Updated DateTime 4 165.1 cm 39.6 kg/m2 795985. 7 g 68 /min 98 % 98 % 124 mm[Hg] 72 mm[Hg] Anna Sommer CT Korin [facility] 4 13:59:29 Social History Question Answer Notes LastModified by Organizat ion Details LastModified Time Tobacco Smoking Status Former Smoker Not Available [facility] 09/15/2020 03:36:24 What Was The Date Of Your Most Recent Tobacco Screening? 04/30/2025 [email or web address] Information not available 04/30/2025 Sex: Unknown Functional [...] 50 mcg/0.25mL dose 1 completed Not Available [facility] 11/09/2022 14:44:14 Influenza, split virus, quadrivalent, preservative 0 completed Not Available [facility] 11/09/2022 14:44:14 COVID-19, mRNA, LNP-S, PF, 30 mcg/0.3 mL dose 1 completed Not Available [facility] 11/09/2022 14:44:14 COVID-19, mRNA, LNP-S, PF, 30 mcg/0.3 mL dose 1 completed Not Available [facility] 11/09/2022 14:44:14 Past Encounters Encounter ID Performer Location Encounter Start Date Encounter Closed Date Diagnosis/Indication Diagnosis SNOMED-CT Code Diagnosis ICD10 Code Diagnosis Note [id number] DO [facility] [address] [facility],[place] [address] 06/17/2020 09:11:31 06/17/2020 09:41:43 Screening mammography 43876737 Z12.31 needs a mammogram scheduled Gynecologi c examination 32573897 Z01.419 needs a pap performed, sent out to trouble lineman Abdominal pain 23826757 R10.9 will check to see if she to has a positive EBV antigen [id number] Bryce Rolle DO [facility] [address] [facility],[place] [address] 07/17/2020 10:07:16 07/17/2020 10:37:24 Premenopausal amenorrhea 11592154 N91.2 will check FSH and see if she is in premenopau se Anxiety 60255718 F41.9 will try on sertraline and see if she has any benefit with it will let me know if she needs an increased dosage Hypertensive disorder 38 959611 I10 normally really good very stressed today will monitor for it [id number] Bryce Rolle DO [facility] [address] [facility] [address] [address] 10/14/2020 08:13:27 10/14/2020 10:45:13 Anxiety 10464588 F41.9 doing much better on the zoloft, feeling much better with decreased symptoms Depressive disorder 3548 9007 F32.9 stable now on medication [id number] Bryce Rolle DO [facility] [address] [facility],[address] [place] [address] 11/09/2020 09:14:42 11/09/2020 10:44:44 Pain of right ankle joint 6433029208 8477626 M25.571 will set up for XR to r/o fracture, from the presentati on and symptoms possible Grade 3 sprain will fu after XR, discussed order for crutches and brace Anxiety 30370983 F41.9 doing much better on the zoloft, feeling much better with decreased symptoms Depressive disorder 3548 9007 F32.9 stable now on medication [id number] Bryce Rolle DO [facility] [address] [facility] [address],[place] [address] 04/21/2021 13:58:17 04/21/2021 14:22:05 Pain of left temporomandibular joint 7714094346 3368071 M26.622 left TMJ will treat with MSK relaxer and anti-infla mmatory [id number] Bryce Rolle DO [facility] [address] [facility] [address],[place] [address] 06/04/2021 13:37:06 06/04/2021 14:06:37 Depressive disorder 17792926 F32.9 [id number] Bryce Rolle [facility] [address] [facility] [address],[place] [address] 07/07/2021 13:42:30 07/07/2021 14:22:24 Depressive disorder 60812817 F32.9 seems to be ok with feeling down Anxiety 62833958 F41.9 feeling overwhelme d [id number] Bryce Rolle [facility] [address] [facility] [address],[place] [address] 09/22/2021 09:45:13 09/22/2021 12:12:40 Allergy to nut 92381167 Z91.018 needs refill Active or passive immunization 909079950 Z23 stablenorm al reaction to vaccineboo ster shot with moderna Anxiety 58071323 F41.1 doing much better on the zoloft, feeling much better with decreased symptoms Depressive disorder 3548 9007 F32.0 stable now on medication [id number] Bryce Rolle [facility] [address] [facility],[place] [address] 11/23/2021 08:09:25 11/23/2021 17:24:33 Pain in right hand 1319094318 07555 M79.641 will fu with repeat XR to r/o fracture [id number] Bryce Rolle [facility] [address] [facility] [address],[place] [address] 06/08/2022 10:33:52 06/08/2022 16:45:19 Anxiety 27524771 F41.1 stable Depressive disorder 3548 9007 F32.0 stable on medication [id number] Bryce Rolle [facility] [address] [facility] [address],[place] [address] 08/31/2022 09:12:34 08/31/2022 11:53:29 Chronic sinusitis 53859019 J32.[address] since her XR is negativewi ll start on Cipro 500 mg BID for 7 days [id number] Bryce Rolle [facility] [address] [address] 09/07/2022 16:09:02 09/09/2022 09:05:07 Infection of lacrimal gland 910591076 H04.012 will start on ofloxacin and warm compresses Pleurisy 083451032 R09.1 will start on short course of colchicine Candidiasis of vagina 72 891026 B37.31 will restart Pain of ri ght knee joint 7314796543 79292 M25.561 will f/u with XR right knee for evaluation after injury Low back pain 356084912 M54.59 will f/u with XR low back for evaluation after injury Anand red spot 29764476 H35.89 most likely related to vaccinenew reports released confirming this [id number] Bryce Rolle [address] [address] 09/16/2022 14:00:38 09/19/2022 09:50:41 Cervico-occipital neuralgia 65508119 M54.81 will start on gabapentin and prednisone Chronic sinusitis 803971 [address] is happening on Monday Facial swelling 84994790 6 R22.0 will readjust her pred taperstart on gabapentin and budesonide spray [id number] Bryce Rolle [facility] [address] [address] 11/08/2022 11:28:28 11/08/2022 13:14:29 Wheezing 34876306 R06.2 will fu with XR chest for possible pna vs costal chondritis [id number] Bryce Rolle [facility] [address] [address] 08/01/2023 10:26:45 08/01/2023 11:30:57 Anxiety 25721640 F41.1 stable Depressive disorder 8368 9007 F32.0 stable on medication Menopause 713227280 N95. 1 will set up with HRT Acne 22271022 L70.8 will start back on clindamyci n Tinea pedis 1875149 B35. 3 will set up with oral medication Multiple b enign melanocytic nevi 132972422 D22.9 will set up with derm Pain of ri ght knee joint 7821354727 81038 M25.561 needs more imaging will need MRI after [id number] Bryce Rolle [facility] [address] [facility] [address] 05/29/2024 09:41:43 05/29/2024 12:05:28 Depression screening 980482365 Z13.31 negative Depressive disorder [id number] F32.0 stable on medication Urinary incontinence 165 [id number] N39.3 will set up with urine sample and US bladder [id number] Bryce Rolle [facility] [address] [facility] [address] 09/16/2024 13:48:13 09/16/2024 15:42:16 Acute pharyngitis [id number] J02.8 start on prednisone Sore throat [id number] J0 2.8 as needed [id number] Bryce Rolle [facility] [address] [facility] [address] 01/31/2025 10:11:21 01/31/2025 14:20:26 Low back pain 660522052 M54.59 will f/u with XR low back for evaluation after injury Pain of le ft hip joint [id number] 00498 M25.552 will set up with the XR hip Pain of ri ght ankle joint [id number] 4472430 M25.571 will set up for XR to r/o fracture, from the presentati on and symptoms possible Grade 3 sprain will fu after XR, discussed order for crutches and brace [id number] Bryce Rolle [facility] [address] [facility],[place] [address] 04/23/2025 10:59:57 04/23/2025 13:58:57 Menopause [id number] N95.1 continue on treatment Depression screening 171 138798 Z13.31 negative History of vaccination 307582087 Z92.29 recommende d Tdap, Shingles, Fatigue 30881130 R53.83 recommende d full work up Menopause present 314119 006 Z78.0 will set up with HRT Headache disorder 955222 009 G44.89 will set up with lab work Dizziness [id number] R42 will set up with lab work Muscle pain 39990841 M79 .10 will fu with lab work Finding of hand region 430641418 R25.1 ?neuro-deg enerative disorder [id number] Bryce Rolle DO [facility] Internal Medicine [address],[place] [address] 04/30/2025 11:49:53 04/30/2025 13:45:34 Dizziness 091790219 R42 continues Hypoglycemia 640556144 E 16.2 additional work up for hypoglycem ia Pain of ri ght knee joint 1034371822 27133 M25.561 recommende d MRI knee, f/u septic joint after recent athroscope Palpitations 54767792 R0 0.2 adding on US echo, r/o endocardit is or other infectious /inflammat ory process Pyrexia of unknown origin 5566726 R50.9 set up with additional blood culture, hep panel, HIV panel (less likely but could have been exposed to something Pancreatic insufficiency 53236041 K86.89 recommenda tion and adding on assessment for pancreatit is Syncope symptom 95458146 5 R55 adding holter, r/o sick sinus syndrome or other arrhythmia Health Concerns Section Related Observation LastModified by Organization Detai ls LastModified Time None Recorded Concern Status LastModified by Organization Details LastModified Time None Recorded Advance Directives Directive None Recorded Payers Insurance Date Sequence Insurance Name Policy Number Policy Torrez Covered Member ID Torrez Member ID Guarantor Name 04/17/2025 1 [id number] ([id number]) [id number] Jaqueline Reese [id number] Jaqueline Reese 04/20/2025 1 [facility] Jaqueline Reese [id number] Jaqueline Reese Notes Date Note Type Note [...] also she could use LIBBY MONTEZ [address] [place], [address], [facility] 05/29/2024 10:30:53 4 text/html [...] peritonsillar abscessno muffled voice LIBBY MONTEZ [address] [facility], [place], [address], [facility] 09/16/2024 14:15:32 5 text/html [...] def her hip joint LIBBY MONTEZ [address] [place], [address], [facility] 01/31/2025 10:42:51 5 text/html f/u menopause the patient is reporting significant symptoms: the patient is doing great with her R knee after her surgerythe patient is getting SI joint injection and a hip injection the patient is working with [facility] the patient is here for f/u [...] pre syncope and syncope LIBBY MONTEZ [address] [place], [address], [facility] 04/23/2025 12:00:15 5 text/html f/u hospital d/c Total time of appointment was 50 minutes after reviewing patient's symptoms, coming up with a plan for diagnosis, possible d/d/x and prognosis the patient reports that she ended up in the hospital in [place] due to syncopal episode and high fever [...] pt is on sertraline LIBBY MONTEZ [address] [facility], [place], [address], [facility] 04/30/2025 13:33:52 OBGyn Episode No OBEpisode recorded.
== END ==
LOC: HO.CARD 13:52
PROVIDERS: PCP Internal Medicine; Visit Provider Physician Assistant
DX: R00.2 Palpitations (principal)
CPT/HCPCS: 93270; 93306

== ENCOUNTER → 2025-05-07 13:57 | Outpatient (BNV) | payer MEDICAID, SELFPAY | PROVIDERS: PCP Internal Medicine; Visit Provider Internal Medicine | DX: R00.2 Palpitations (principal) | CPT/HCPCS: 93306 ==

== ENCOUNTER → 2025-05-08 07:15 | Outpatient (BNV) | payer MEDICAID, SELFPAY | PROVIDERS: PCP Internal Medicine; Visit Provider Radiology Diagnostic Radiology | DX: K76.89 Other specified diseases of liver (principal); M17.11 Unilateral primary osteoarthritis, right knee | CPT/HCPCS: 73721; 74183 ==

== ENCOUNTER 2025-05-08 07:30 | Outpatient (REF) | payer MEDICAID, SELFPAY ==
--- NOTE | ~2025-05-08 | MR_ITS ---
EXAMINATION: MR ABDOMEN WITHOUT THEN WITH IV CONTRAST HISTORY: HYPOGLYCEMIA, R/O MICROTUMOR DYSFUNCTION PANCREAS COMPARISON: There are no prior studies available for comparison. TECHNIQUE: Axial in and out of phase T1-weighted gradient echo, axial diffusion weighted, and axial and coronal HASTE T2 with fat saturation images were obtained through the abdomen. Subsequently, fat suppressed axial and coronal T1-weighted images were obtained after the intravenous administration of 10 mL Gadavist. FINDINGS: Liver: There is no loss of signal intensity in the liver on opposed phase imaging to suggest steatosis. There is a 6 mm cyst in segment VII. There is no enhancing liver mass. The hepatic and portal veins are patent. There is no intra- or extrahepatic biliary dilatation. Gallbladder: No gallstones are identified. Spleen: The spleen is unremarkable. Pancreas: The pancreas is unremarkable. There is no enhancing pancreatic mass. The pancreatic duct is normal in caliber. Adrenals: The adrenal glands are unremarkable. Kidneys: The kidneys are unremarkable. There is no hydronephrosis. Lymph nodes: There is no retroperitoneal lymphadenopathy in the upper abdomen. Fluid: There is no ascites in the upper abdomen. Abdominal wall: There is a small fat-containing umbilical hernia. Visualized bowel: The visualized bowels loops are unremarkable in appearance. Visualized bones: The visualized bones demonstrate normal marrow signal intensity. MR/MR abdomen wo/w con IMPRESSION: 6 mm hepatic cysts. Small fat-containing umbilical hernia. Otherwise unremarkable MRI of the abdomen without and with contrast. No evidence of a pancreatic mass. Electronically signed by: Buck Chow MD 05/08/2025 09:31 AM EDT
--- NOTE | ~2025-05-08 | MR_ITS ---
EXAMINATION: MR KNEE WITHOUT CONTRAST, RIGHT CLINICAL INFORMATION: Recent Right knee surgery on 11/01/2024, right swelling with medial tenderness. Increased Wbc's. Rule out septic joint. COMPARISON: 09/11/2023 MRI right knee. TECHNIQUE: MRI of the right knee without contrast was performed using routine sequences on a 1.5 Caitlin Siemens high-field scanner. FINDINGS: MENISCI: Medial Meniscus: Intact without definite tear. Lateral Meniscus: Intact without definite tear. LIGAMENTS: Anterior Cruciate: Intact and normal in signal. Posterior Cruciate: Intact and normal in signal. Medial Collateral: Intact and normal in signal. Lateral Collateral Complex: The biceps femoris tendon, conjoined tendon, fibular collateral ligament, and popliteus tendon are all intact and normal in signal. The popliteus muscle is normal. EXTENSOR MECHANISM: Intact and normal in signal. There is a surgical clip and superior Hoffa's fat pad with localized susceptibility. The prefemoral fat pad, and suprapatellar fat pad are normal in signal. PATELLAR RETINACULUM: Intact and normal in signal. The medial patellofemoral ligament is intact. BONE: There is no gross bone marrow edema to suggest fracture or contusion. No abnormal infiltrating bone marrow signal. There is localized degenerative subchondral bone plate edema within the anterior weightbearing medial femoral condyle with overlying cartilage loss as detailed below. There is a focus of degenerative subchondral bone plate edema involving the superior patella as detailed below. JOINTS/CARTILAGE: Medial Compartment: Mild degenerative changes in the medial compartment with mild superficial cartilage irregularity and eburnation of both the medial weightbearing condyle, and medial tibial plateau. There are early tiny marginal osteophytes present. There is minimal joint space loss. No subchondral bone plate edema present Lateral Compartment: Mild chondrocalcinosis of the tibial plateau cartilage. There is a full-thickness cartilage fissure with associated localized delamination involving the anterior weightbearing medial femoral condyle, with underlying subchondral bone plate edema (best seen series 10, image 18) Lateral compartment cartilage is otherwise grossly intact. No loss of joint space. There are tiny marginal osteophytes present. Patellofemoral Compartment: There is moderate cartilage loss and eburnation involving the patellar apex, and both facets. There are small marginal osteophytes bilaterally. There is a full-thickness cartilage fissure in the superior, slightly lateral patellar facet small amount of subchondral bone plate edema (best seen series 8, image 7).. Femoral trochlear cartilage is intact. JOINT FLUID AND BURSAE: There is normal joint fluid. There is no effusion. There is mild prepatellar soft tissue edema which may indicate mild bursitis. Remainder of the bursal structures appear normal. OTHER: There is no Donnelly's cyst. The popliteal fossa structures are normal. -The major musculature is normal in signal. MR/MR knee RT wo con IMPRESSION: 1. There are no findings to support a septic joint diagnosis. 2. The menisci and major ligamentous structures are intact without tear. 3. 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 Prominent focus of subchondral bone plate edema in the anterior weightbearing lateral femoral condyle with overlying cartilage fissuring and delamination. Similar smaller focus in the superior lateral patellar facet. 4. Possible mild prepatellar bursitis. Electronically signed by: Valerio Aquino MD 05/08/2025 09:46 AM EDT
[2025-05-08] MEDS: gadobutroL 10 ML VIAL IVPUSH (09:15)
== END 2025-05-08 07:31 | disposition home or self-care (01) ==
LOC: HO.MRI 07:30
PROVIDERS: PCP Internal Medicine; Visit Provider Physician Assistant
DX: E16.2 Hypoglycemia, unspecified (principal); M25.561 Pain in right knee
CPT/HCPCS: 73721; 74183; A9585

== ENCOUNTER 2025-05-13 09:02 | Outpatient (REF) | payer MEDICAID, SELFPAY ==
--- NOTE | ~2025-05-13 | MR_ITS ---
EXAMINATION: MR BRAIN WITHOUT AND WITH CONTRAST CLINICAL INFORMATION: Tremors. Concerning Parkinson's disease versus MS. COMPARISON: None available. TECHNIQUE: Multiplanar, multisequence MRI of the brain was obtained before and after the intravenous administration of 10.0 mL gadolinium based (Gadavist) without reported immediate complications. FINDINGS: No restricted diffusion. No enhancing lesion within the intra-axial or the extra-axial compartment of the cranium. Normal appearance of the substantia nigra. No acute intracranial hemorrhage mass effect midline shift, hydrocephalus or herniation. Chacon-white matter differentiation is normal. Sellar/suprasellar region demonstrated no signal abnormality or masses. Craniocervical junction demonstrates normal position of the cerebellar tonsils. Flow-void signal within the main cerebral vessels is normal. MR/MR head/brain wo/w con IMPRESSION: No enhancing lesion. No demyelinating plaques or acute) abnormality. No absent swallow tail sign Negative exam.. Electronically signed by: Carlos Patiño MD 05/13/2025 10:31 AM EDT
--- OUTSIDE RECORDS SUMMARY | 2025-05-13 09:28 | XMS_ITS | Data Portability ---
Author Organization [facility] Telehealth Patient Home Address [address] [place] [address] Assessment No assessment recorded. Plan of Treatment Reminders Order Date Submit Date Provider Last Modified By Organization Details Last Modified Time Details Appointments FOLLOW UP 15 2024 11:45A LIBBY BARBOUR Not available Not available Not available Lab culture, blood 2 2024 025 [facility], [address] [place] [address], [address], 05/02/2025 11:55:45 hepatitis panel (A+B+C), acute, serum 2024 025 [facility], [address] [place] [address], 50774, 04/30/2025 13:04:14 HIV 1+2 AB + HIV 1 p24 Ag, qualitati ve immunoass ay, serum 2024 025 [facility], [address] [place] [address], 67998, 04/30/2025 13:04:14 RPR (rapid plasma reagin), serum 2024 025 [facility], [address] [place] [address], 27338, 04/30/2025 13:04:14 serotonin , blood 2024 025 [facility], [address] [place] [address], 81917, 04/30/2025 13:21:55 lipase, serum or plasma 2024 025 [facility], [address] [place] [address], 11368, 04/30/2025 13:04:13 amylase, serum or plasma 2024 025 [facility], [address] [place] [address], 16844, 04/30/2025 13:04:13 pancreati c elastase, stool 2024 025 [facility], [address] [place] [address], 21537, 05/12/2025 11:50:31 insulin, serum 2024 025 [facility], [address] [place] [address], 26341, 04/30/2025 13:04:14 C-peptide , serum 2024 025 [facility], [address] [place] [address], 79305, 04/30/2025 13:04:13 cortisol, free, 24-hour urine 2024 025 [facility], [address] [place] [address], 78784, 04/30/2025 13:04:13 acth, plasma 2024 025 [facility], [address] [place] [address], 62855, 04/30/2025 13:04:14 hemoglobi n A1c, QN, blood 2024 025 [facility], [address] [place] [address], 24537, 05/06/2025 11:47:53 lyme disease igg+igm, serum, reflex western blot 2024 [facility], [address] [place] [address], 33341, 04/25/2025 12:09:58 anaplasma phagocyto philum + ehrlichia chaffeens is IgG + IgM panel, serum 2024 [facility], [address] [place] [address], 00547, 04/30/2025 12:42:12 Rickettsi a rickettsi i IgM Ab, QN, serum 2024 [facility], [address] [place] [address], 72100, 04/23/2025 12:01:14 urinalysi s complete, reflex culture 2024 [facility], [address] [place] [address], 71607, 04/23/2025 12:01:15 phosphoru s, serum or plasma 2024 [facility], [address] [place] [address], 18666, 04/23/2025 12:01:15 PTH (parathyr oid hormone), intact + calcium, serum or plasma 2024 025 [facility], [address] [place] [address], 90278, 04/23/2025 12:01:15 magnesium , serum or plasma 2024 025 [facility], [address] [place] [address], 97791, 04/23/2025 12:01:14 estradiol , serum 2024 025 [facility], [address] [place] [address], 49310, 05/08/2025 13:06:19 lh + FSH, serum 2024 025 [facility], [address] [place] [address], 26062, 04/23/2025 12:01:13 progester one, serum 2024 025 [facility], [address] [place] [address], 28140, 2025 11:40:08 iron + TIBC + ferritin, serum 2024 025 [facility], [address] [place] [address], 86167, 04/23/2025 12:01:14 vitamin B12 + folate, serum or blood 2024 025 [facility], [address] [place] [address], 09269, 04/23/2025 12:01:14 TSH + free T4, serum 2024 025 [facility], [address] [place] [address], 41227, 04/23/2025 12:01:14 vitamin D, 25-hydrox y, total, serum 2024 025 [facility], [address] [place] [address], 71061, 04/23/2025 12:01:14 CBC w/ auto diff 2024 025 [facility], [address] [place] [address], 27722, 04/23/2025 12:01:15 CMP, serum or plasma 2024 025 [facility], [address] [place] [address], 50980, 04/23/2025 12:01:14 hemoglobi n A1c, QN, blood 2024 025 [facility], [address] [place] [address], 24305, 04/23/2025 12:01:15 C-reactiv e protein, quantitat lukasz, serum or plasma 2024 025 [facility], [address] [place] [address], 59571, 04/23/2025 12:01:15 ESR (erythroc yte sedimenta tion rate), blood 2024 025 [facility], [address] [place] [address], 97493, 04/23/2025 12:01:15 jasson-b arr virus (ebv) IgG + IgM panel, serum 2024 025 [facility], [address] [place] [address], 33597, 04/23/2025 12:01:14 urinalysi s complete, reflex culture 2023 024 [facility], [address] [place] [address], 19593, 05/31/2024 11:23:36 Referral None recorded. Procedures None recorded. Surgeries None recorded. Imaging US, [facility] [address] [place] [address], [address], 05/05/2025 08:21:19 holter monitor 2024 025 [facility], [address] [place], [address], 05/05/2025 16:38:10 MRI, knee, w/o contrast - hx of scope of the knee, patient 2024 025 [facility], [address] [place], [address], 05/05/2025 08:21:19 MRI, pancreas, w/wo contrast 2024 025 [facility], [address] [place], [address], 05/05/2025 08:21:19 MRI, brain, w/wo contrast 2024 025 [facility], [address] [place], [address], 05/07/2025 08:24:18 XR, hip + pelvis, unilatera l, 2 or 3 view 2024 025 [facility], [address] [place], [address], 02/04/2025 11:35:36 US, bladder 2023 024 [facility], [address] [place], [address], 05/31/2024 08:08:22 Medication Orders tramadol 50 mg tablet 2024 025 [id number], [address] [place], [address], 04/23/2025 11:21:59 Lidocaine Viscous 2 % mucosal solution 2023 025 [facility], [address] [place], [address], 04/23/2025 11:21:41 prednison e 10 mg tablet 2023 025 [facility], [address] [place], [address], 01/31/2025 10:38:04 Cipro 500 mg tablet 2023 025 [facility], [address] [place], [address], 01/31/2025 10:15:27 Patient TargetsNo targets recorded. Patient InstructionsNo instructions recorded. Reason for Referral None Reported. Results Created Date Observation Date Name Description Value Unit Range Abnormal Flag Note LastModifiedBy Organization Detail LastModifiedTime 06/24/20 24 06/10/2024 US, bladd er No observ ation record ed. [email or web address] [facility] [address] [place], [address], 06/26/2024 11:01:21 10/25/20 24 10/21/2024 MAMMO , scree salvador, digit al, bilat eral No observ ation record ed. [email or web address] [facility] [address] [place] [address] [place], [address], 10/26/2024 15:39:12 02/05/20 25 02/03/2025 XR, hip + pelvi s, unila teral , 2 or 3 view No observ ation record ed. [facility] [address] [place], [address], 04/23/2025 11:18:09 03/05/20 25 03/04/2025 MRI, hip, w/o contr ast No observ ation record ed. [facility] (Medical Records) [address] [place], [address], 04/23/2025 11:18:09 05/08/20 25 05/08/2025 MRI, pancr eas, w/wo contr ast No observ ation record ed. [facility] [address] [place], [address], 05/09/2025 08:58:17 05/08/2005/08/2025 MRI, knee, w/o contr ast No observ ation record ed. [email or web address] [facility] (Medical Records) [address] [place], [address], 05/09/2025 11:31:30 05/08/2005/07/2025 US, echoc ardio gram No observ ation record ed. [facility] (Medical Records) [address] [place], [address], 05/09/2025 08:58:28 Result Notes None recorded. Problems Name Problem SNOMED Code Status Onset Date Resolution Date Notes Provider Name and Address Organization Details Recorded Time Anxiety 98748245 Active 2019 LIBBY MONTEZ [address] [place] [address], [address], [facility] 0 10:31:53 Depressiv e disorder 71194952 Active 2019 LIBBY MONTEZ [address] [place] [address], [address], [facility] 0 10:32:04 Facial swelling 979339527 Active 2021 LIBBY MONTEZ [address] [place] [address], [address], [facility] 2 12:30:06 Chronic sinusitis 66823552 Active 2021 LIBBY MONTEZ [address] [place] [address], [address], [facility] 2 10:25:49 Empyema of pleura 13213908 Active 2021 LIBBY MONTEZ [address] [place] [address], [address], [facility] 2 10:47:18 Pleurisy 897434627 Active 2021 LIBBY MONTEZ [address] [place], [address], [facility] 2 10:47:24 Costal chondriti s 11117900 Active 2021 LIBBY MONTEZ [address] [place], [address], [facility] 2 16:48:33 Infection of lacrimal gland 322500103 Active 2021 LIBBY MONTEZ [address] [place] [address], [address], [facility] 2 16:50:40 Candidias is of vagina 45752347 Active 2021 LIBBY MONTEZ [address] [place] [address], [address], [facility] 2 16:55:06 Pain of right knee joint 439226011459 100 Active 2021 LIBBY MONTEZ [address] [place] [address], [address], [facility] 5 12:49:48 Low back pain 794602375 Active 2021 LIBBY MONTEZ [address] [place] [address], [address], [facility] 2 16:59:41 Anand red spot 35105192 Active 2021 LIBBY MONTEZ [address] [place] [address], [address], [facility] 2 17:09:19 Chronic recurrent sinusitis 825993586 Active 2021 LIBBY MONTEZ [address] [place] [address], [address], [facility] 2 16:55:17 Cervico-o ccipital neuralgia 26952301 Active 2021 LIBBY MONTEZ [address] [place] [address] [place], [address], [facility] 2 14:09:59 Deviated nasal septum 611129616 Active 2021 LIBBY MONTEZ [address] [place], [address], [facility] 2 16:43:10 Wheezing 90664196 Active 2021 LIBBY MONTEZ [address] [place], [address], [facility] 2 11:58:56 Nausea 216610514 Active 2022 LIBBY MONTEZ [address] [place] [address], [address], [facility] 3 11:47:04 Menopause Active 2022 LIBBY MONTEZ [address] [place], [address], [facility] 3 10:58:45 Acne 69509927 Active 2022 LIBBY MONTEZ [address] [place] [address], [address], [facility] 3 11:08:06 Tinea pedis 7859393 Active 2022 LIBBY MONTEZ [address] [place], [address], [facility] 3 11:13:56 Multiple benign melanocyt ic nevi 675597929 Active 2022 LIBBY MONTEZ [address] [place], [address], [facility] 3 11:16:11 Degenerat lukasz lesion of articular cartilage of knee 088891661 Active 2022 LIBBY MONTEZ [address] [place], [address], [facility] 3 15:25:10 Diverticu litis of colon 310956057 Active 2023 LIBBY MONTEZ [address] [place], [address], [facility] 4 11:16:42 Urinary incontine nve 792110467 Active 2023 LIBBY MONTEZ [address] [place], [address], [facility] 4 10:12:50 Dry eyes 679318677 Active 2023 LIBBY MONTEZ [address] [place] [address], [address], [facility] 4 11:33:04 COVID-19 972212861 Active 2023 LIBBY MONTEZ [address] [place] [address], [address], [facility] 4 09:55:13 Acute pharyngit is 373568257 Active 2023 LIBBY MONTEZ [address] [place] [address], [address], [facility] 4 14:07:08 Sore throat 420457568 Active 2023 LIBBY MONTEZ [address] [place] [address], [address], [facility] 4 14:08:03 Pain of left hip joint 353517814579 100 Active 2024 LIBBY MONTEZ [address] [place] [address], [address], [facility] 5 10:35:24 Tendiniti s of left gluteal tendon 887688192907 108 Active 2024 LIBBY MONTEZ [address] [place] [address], [address], [facility] 5 10:51:00 Fatigue 34579219 Active 2024 LIBBY MONTEZ [address] [place] [address], [address], [facility] 5 11:33:29 Headache disorder 236707381 Active 2024 LIBBY MONTEZ [address] [place] [address], [address], [facility] 5 11:36:06 Dizziness 603398182 Active 2024 LIBBY MONTEZ [address] [place], [address], [facility] 5 11:37:06 Muscle pain 79582580 Active 2024 LIBBY MONTEZ [address] [place] [address], [address], [facility] 5 11:39:38 Finding of hand region 185456578 Active 2024 LIBBY MONTEZ [address] [place] [address], [address], [facility] 5 11:53:20 Jasson-B arr virus disease 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 2024 LIBBY MONTEZ [address] [place] [address], [address], [facility] 5 15:36:09 Hypoglyce bety 457462337 Active 2024 LIBBY MONTEZ [address] [place] [address], [address], [facility] 5 12:46:22 Palpitati ons 98019041 Active 2024 LIBBY MONTEZ [address] [place] [address], [address], [facility] 5 12:50:23 Pyrexia of unknown origin 4959499 Active 2024 LIBBY MONTEZ [address] [place] [address], [address], [facility] 5 12:53:09 Pancreati c insuffici ency 71597211 Active 2024 LIBBY MONTEZ [address] [place] [address], [address], [facility] 5 12:55:04 Syncope symptom 708186271 Active 2024 LIBBY MONTEZ [address] [place], [address], [facility] 5 13:03:52 Problem Notes None recorded. Medical Equipment None Reported. Allergies Allergen ID Allergen Name Allergen Category Reaction Reaction Severity Criticality Documentation Date Start Date Code Code System Note Provider Name and Address Organization Details Recorded Time 6112 naproxen medicatio n Not available Not available Not available 09/16/2022 7258 RxNorm Juliann Reagan [facility] 2 14:03:13 8173 tree nut food anaphylax is Not available [facility] 05/29/2024 84119 UNK Coleman Meridain [facility] 4 09:52:29 8494 iodine medicatio n vomiting Not available Not available 09/16/2024 5933 RxNorm Anna Kemal [facility] 4 13:57:37 9051 tramadol medicatio n Not available Not available [facility] 04/23/2025 88617 RxNorm LIBBY Tomlin SI [address] [place], [address], [facility] 5 11:35:01 Medications Name Sig Start [...] Not Available No t Available amoxicillin 875 mg-kyungrheadoris m clavulanate 125 mg tablet TAKE ONE [...] Updated DateTime 5 165.1 cm 40.4 kg/m2 084734. 95 g 68 /min 98 % 98 % 118 mm[Hg] 78 mm[Hg] Coleman Zelaya [facility] 5 10:16:57 Date Recorded Body height Body mass index (BMI) Body weight Heart rate Oxygen saturation Oxygen saturation in Arterial blood by Pulse oximetry Systolic blood pressure Diastolic blood pressure Provider Name and Address Organization Details Last Updated DateTime 5 165.1 cm 37.2 kg/m2 412259. 25 g 70 /min 94 % 94 % 110 mm[Hg] 72 mm[Hg] Anna Sommer [facility] 5 11:09:14 Date Recorded Body height Body mass index (BMI) Body weight Heart rate Oxygen saturation Oxygen saturation in Arterial blood by Pulse oximetry Systolic blood pressure Diastolic blood pressure Provider Name and Address Organization Details Last Updated DateTime 5 165.1 cm 37.1 kg/m2 772331. 1 g 70 /min 98 % 98 % 110 mm[Hg] 64 mm[Hg] Hailey Huizar [facility] 5 12:33:09 Date Recorded Body height Body mass index (BMI) Body weight Heart rate Oxygen saturation Oxygen saturation in Arterial blood by Pulse oximetry Systolic blood pressure Diastolic blood pressure Provider Name and Address Organization Details Last Updated DateTime 4 165.1 cm 39.8 kg/m2 084523. 58 g 66 /min 98 % 98 % 134 mm[Hg] 74 mm[Hg] Coleman Zelaya [facility] 4 09:49:18 Date Recorded Body height Body mass index (BMI) Body weight Heart rate Oxygen saturation Oxygen saturation in Arterial blood by Pulse oximetry Systolic blood pressure Diastolic blood pressure Provider Name and Address Organization Details Last Updated DateTime 4 165.1 cm 39.6 kg/m2 242885. 7 g 68 /min 98 % 98 % 124 mm[Hg] 72 mm[Hg] Anna Kemal [facility] 4 13:59:29 Social History Question Answer Notes LastModified by Organizat ion Details LastModified Time Tobacco Smoking Status Former Smoker Not Available [facility] 09/15/2020 03:36:24 What Was The Date Of Your Most Recent Tobacco Screening? 04/30/2025 [email or web address] Information not available 04/30/2025 Sex: Unknown Functional [...] 50 mcg/0.25mL dose 1 completed Not Available [facility] 11/09/2022 14:44:14 Influenza, split virus, quadrivalent, preservative 0 completed Not Available [facility] 11/09/2022 14:44:14 COVID-19, mRNA, LNP-S, PF, 30 mcg/0.3 mL dose 1 completed Not Available [facility] 11/09/2022 14:44:14 COVID-19, mRNA, LNP-S, PF, 30 mcg/0.3 mL dose 1 completed Not Available [facility] 11/09/2022 14:44:14 Past Encounters Encounter ID Performer Location Encounter Start Date Encounter Closed Date Diagnosis/Indication Diagnosis SNOMED-CT Code Diagnosis ICD10 Code Diagnosis Note [id number] Bryce Rolle [facility] [address] [facility], [place] [address] 06/17/2020 09:11:31 06/17/2020 09:41:43 Screening mammography 61086733 Z12.31 needs a mammogram scheduled Gynecologi c examination 92203936 Z01.419 needs a pap performed, 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 Abdominal pain 83167243 R10.9 will check to see if she to has a positive EBV antigen [id number] Bryce Rolle [facility] [address], [place] [address] 07/17/2020 10:07:16 07/17/2020 10:37:24 Premenopausal amenorrhea 62347517 N91.2 will check FSH and see if she is in premenopau se Anxiety 73187273 F41.9 will try on sertraline and see if she has any benefit with it will let me know if she needs an increased dosage Hypertensive disorder 38 848513 I10 normally really good very stressed today will monitor for it [id number] Bryce Rolle DO [facility] [address],[place] [address] 10/14/2020 08:13:27 10/14/2020 10:45:13 Anxiety 12591718 F41.9 doing much better on the zoloft, feeling much better with decreased symptoms Depressive disorder 3548 9007 F32.9 stable now on medication [id number] Bryce Rolle [facility] [address] [facility], [place] [address] 11/09/2020 09:14:42 11/09/2020 10:44:44 Pain of right ankle joint 5587678642 3977076 M25.571 will set up for XR to r/o fracture, from the presentati on and symptoms possible Grade 3 sprain will fu after XR, discussed order for crutches and brace Anxiety 00590054 F41.9 doing much better on the zoloft, feeling much better with decreased symptoms Depressive disorder 3548 0417 F32.9 stable now on medication [id number] Bryce Rolle [facility] [address] [facility], [place] [address] 04/21/2021 13:58:17 04/21/2021 14:22:05 Pain of left temporomandibular joint 9591942184 1394934 M26.622 left TMJ will treat with MSK relaxer and anti-infla mmatory [id number] Bryce Rolle [facility] [address] [facility], [place] [address] 06/04/2021 13:37:06 06/04/2021 14:06:37 Depressive disorder 34217689 F32.9 [id number] Bryce Rolle [facility] [address] [facility], [place] [address] 07/07/2021 13:42:30 07/07/2021 14:22:24 Depressive disorder 90323713 F32.9 seems to be ok with feeling down Anxiety 46495655 F41.9 feeling overwhelme d [id number] Bryce Rolle [facility] [address] [facility], [place] [address] 09/22/2021 09:45:13 09/22/2021 12:12:40 Allergy to nut 05840981 Z91.018 needs refill Active or passive immunization 767401188 Z23 stablenorm al reaction to vaccineboo ster shot with moderna Anxiety 55907055 F41.1 doing much better on the zoloft, feeling much better with decreased symptoms Depressive disorder 3548 9007 F32.0 stable now on medication [id number] Bryce Rolle [facility] [address] [facility] [address] [address] 11/23/2021 08:09:25 11/23/2021 17:24:33 Pain in right hand 5055387709 33222 M79.641 will fu with repeat XR to r/o fracture [id number] Bryce Rolle [facility] [address] [facility] [address],[place] [address] 06/08/2022 10:33:52 06/08/2022 16:45:19 Anxiety 97561493 F41.1 stable Depressive disorder 3548 9007 F32.0 stable on medication [id number] Bryce Rolle [facility] [address] [facility] [address],[place] [address] 08/31/2022 09:12:34 08/31/2022 11:53:29 Chronic sinusitis 62114323 J32.[address] since her XR is negativewi ll start on Cipro 500 mg BID for 7 days [id number] Bryce Rolle [facility] [address] [facility],[place] [address] 09/07/2022 16:09:02 09/09/2022 09:05:07 Infection of lacrimal gland 685699377 H04.012 will start on ofloxacin and warm compresses Pleurisy 083587517 R09.1 will start on short course of colchicine Candidiasis of vagina 72 901833 B37.31 will restart Pain of ri ght knee joint 9380954443 92555 M25.561 will f/u with XR right knee for evaluation after injury Low back pain 398575726 M54.59 will f/u with XR low back for evaluation after injury Anand red spot 75454501 H35.89 most likely related to vaccinenew reports released confirming this [id number] Bryce Rolle [facility] [address] [facility] [address] [address] 09/16/2022 14:00:38 09/19/2022 09:50:41 Cervico-occipital neuralgia 00487555 M54.81 will start on gabapentin and prednisone Chronic sinusitis 210982 [address] is happening on Monday Facial swelling 65086819 6 R22.0 will readjust her pred taperstart on gabapentin and budesonide spray [id number] Bryce Rolle [facility] [address], [place] [address] 11/08/2022 11:28:28 11/08/2022 13:14:29 Wheezing 53595380 R06.2 will fu with XR chest for possible pna vs costal chondritis [id number] Bryce Rolle [facility] [address] [address] 08/01/2023 10:26:45 08/01/2023 11:30:57 Anxiety [id number] F41.1 stable Depressive disorder 3548 9007 F32.0 stable on medication Menopause [id number] N95. 1 will set up with HRT Acne 10945477 L70.8 will start back on clindamyci n Tinea pedis 5900418 B35. 3 will set up with oral medication Multiple b enign melanocytic nevi 995295848 D22.9 will set up with derm Pain of ri ght knee joint [id number] 32391 M25.561 needs more imaging will need MRI after [id number] Bryce Rolle [facility] [address] [facility], [place] [address] 05/29/2024 09:41:43 05/29/2024 12:05:28 Depression screening [id number] Z13.31 negative Depressive disorder 3548 9007 F32.0 stable on medication Urinary incontinence 165 289602 N39.3 will set up with urine sample and bladder [id number] Bryce Rolle [facility] [address] [facility], [place] [address] 09/16/2024 13:48:13 09/16/2024 15:42:16 Acute pharyngitis 907259406 J02.8 start on prednisone Sore throat 614722171 J0 2.8 as needed [id number] Bryce Rolle [facility] Internal [facility] [address] [facility],[place] [address] 01/31/2025 10:11:21 01/31/2025 14:20:26 Low back pain 442898955 M54.59 will f/u with XR low back for evaluation after injury Pain of le ft hip joint 9582265883 15993 M25.552 will set up with the XR hip Pain of ri ght ankle joint [id number] 1656923 M25.571 will set up for XR to r/o fracture, from the presentati on and symptoms possible Grade 3 sprain will fu after XR, discussed order for crutches and brace [id number] Bryce Rolle [facility] [address] [facility],[facility] [place] [address] 04/23/2025 10:59:57 04/23/2025 13:58:57 Menopause 046946851 N95.1 continue on treatment Depression screening 171 956681 Z13.31 negative History of vaccination 451025880 Z92.29 recommende d Tdap, Shingles, Fatigue 59939808 R53.83 recommende d full work up Menopause present 071967 006 Z78.0 will set up with HRT Headache disorder 389824 009 G44.89 will set up with lab work Dizziness 797097150 R42 will set up with lab work Muscle pain 78114196 M79 .10 will fu with lab work Finding of hand region 452602658 R25.1 ?neuro-deg enerative disorder [id number] Bryce Rolle [facility] Internal [facility] [address],[place] [address] 04/30/2025 11:49:53 04/30/2025 13:45:34 Dizziness 691946750 R42 continues Hypoglycemia 217462701 E 16.2 additional work up for hypoglycem ia Pain of ri ght knee joint 2170911858 64585 M25.561 recommende d MRI knee, f/u septic joint after recent athroscope Palpitations 76514930 R0 0.2 adding on US echo, r/o endocardit is or other infectious /inflammat ory process Pyrexia of unknown origin 8472327 R50.9 set up with additional blood culture, hep panel, HIV panel (less likely but could have been exposed to something Pancreatic insufficiency 70743769 K86.89 recommenda tion and adding on assessment for pancreatit is Syncope symptom 21438465 5 R55 adding holter, r/o sick sinus syndrome or other arrhythmia Health Concerns Section Related Observation LastModified by Organization Detai ls LastModified Time None Recorded Concern Status LastModified by Organization Details LastModified Time None Recorded Advance Directives Directive None Recorded Payers Insurance Date Sequence Insurance Name Policy Number Policy Torrez Covered Member ID Torrez Member ID Guarantor Name 04/17/2025 1 [employer] [facility] (O) [id number] Jaqueline Reese [id number] Jaqueline Reese 04/20/2025 1 [place] [facility] Jaqueline Reese [id number] Jaqueline Reese Notes Date Note Type Note [...] also she could use LIBBY MONTEZ [address] [facility], [place], [address], [place] JACKELIN Schuler Internal [facility] 05/29/2024 10:30:53 4 text/html c/o [...] peritonsillar abscessno muffled voice LIBBY MONTEZ [address] [place], [address], [facility] Internal [facility] 09/16/2024 14:15:32 5 text/html [...] def her hip joint LIBBY MONTEZ [address] [place], [address], [facility] Internal [facility] 01/31/2025 10:42:51 5 text/html [...] pre syncope and syncope LIBBY MONTEZ [address] [place], [address], [facility] Internal Medicine 04/23/2025 12:00:15 5 text/html f/u hospital d/c Total time of appointment was 50 minutes after reviewing patient's symptoms, coming up with a plan for diagnosis, possible d/d/x and prognosis the patient reports that she ended up in the hospital in [place] due to syncopal episode and high fever [...] pt is on sertraline LIBBY MONTEZ [address] [facility], [place], [address], JACKELIN Schuler [facility] 04/30/2025 13:33:52 OBGyn Episode No OBEpisode recorded.
== END 2025-05-13 09:03 | disposition home or self-care (01) ==
LOC: HO.MRI 09:02
PROVIDERS: PCP Internal Medicine; Visit Provider Physician Assistant
DX: R25.1 Tremor, unspecified (principal)
CPT/HCPCS: 70553; A9585

== ENCOUNTER → 2025-05-13 09:25 | Outpatient (BNV) | payer MEDICAID, SELFPAY | PROVIDERS: PCP Internal Medicine; Visit Provider Radiology Diagnostic Radiology | DX: R25.1 Tremor, unspecified (principal) | CPT/HCPCS: 70553 ==

== ENCOUNTER 2025-07-16 12:42 | Emergency (ER) | payer MEDICAID, SELFPAY ==
--- NOTE | ~2025-07-16 | US_ITS ---
EXAMINATION: US TRIPLEX UPPER EXTREMITY, LEFT CLINICAL INFORMATION: Edema/swelling, left upper extremity. COMPARISON: None available. TECHNIQUE: Color-flow triplex imaging with spectral analysis and compression Doppler was performed on the left upper extremity. FINDINGS: The left internal jugular, subclavian, and axillary veins are patent with normal phasic flow. The imaged segment of the left brachiocephalic vein is patent. Spectral doppler waveforms are normal. The brachial, basilic, cephalic, radial, and ulnar veins are patent and compressible. US/US venous duplex UE LT IMPRESSION: No acute deep venous thrombosis interrogated veins, left upper extremity. Negative for DVT. Electronically signed by: Carlos Patiño MD 07/16/2025 03:34 PM EDT
[2025-07-16 12:49] VITALS: BP 165/81; PULSE 70; RESP 18; TEMP 37.1; O2SAT 98; BMI 36.3
--- NOTE | 2025-07-16 12:50 | ED.GENADULT ---
HPI - General Adult General Chief complaint: Extremity Problem Stated complaint: Left arm and neck swollen Time Seen by Provider: 07/16/25 15:43 Source: patient, family, RN notes reviewed and old records reviewed Mode of arrival: ambulatory Limitations: no limitations History of Present Illness ED Provider: Gabriela Rea PA-C HPI narrative: Patient reports that ever since she had a vasovagal event from getting blood work drawn earlier this year she has had left-sided shoulder pain for which she points to her AC process for worse it hurts the most with paresthesias radiating into her left arm. She denies any associated neck pain. A time patient goes beyond 90 degrees of ab duction and GH flexion and shoulder hurts more. She saw her PCP who ordered an ultrasound outpatient but she was not able to go to it and given the pain she just came here instead. Patient is right-hand dominant. She denies any aggravating activity otherwise. She is accompanied by her significant other today. She reports having some chronic lymphadenopathy on her left side for which she is being worked up outpatient by her PCP for an autoimmune disorder. No changes in this. She denies any coldness of her limb Related Data Home Medications ?Medication ?Instructions ?Recorded ?Confirmed Vitamin D3 11/10/20 Zoloft 11/10/20 Previous Rx's ?Medication ?Instructions ?Recorded ibuprofen 600 mg tablet 600 mg PO Q8H PRN pain #20 tabs 11/10/20 oxycodone 5 mg tablet 5 mg PO Q6H PRN pain #8 tabs 11/10/20 cyclobenzaprine 10 mg tablet 10 mg PO Q8H PRN Muscle spasm #14 09/16/21 tabs hydrocodone 5 mg-acetaminophen 325 1 tab PO Q8H PRN pain #14 tabs 09/16/21 mg tablet ibuprofen 800 mg tablet 800 mg PO Q8H PRN pain #14 tabs 09/16/21 amoxicillin 875 mg-potassium 1 tab PO BID sinus infection 10 04/07/22 clavulanate 125 mg tablet days #20 tabs guaifenesin 600 mg tablet, 600 mg PO Q12H PRN congestion #14 04/07/22 extended release 12 hr (Mucinex) tabs prednisone 20 mg tablet 20 mg PO DAILY 5 days #5 tabs 04/07/22 Allergies Allergy/AdvReac Type Severity Reaction Status Date / Time naproxen Allergy Vomiting Verified 07/16/25 12:51 nut - unspecified Allergy Anaphylaxis Verified 07/16/25 12:51 Review of Systems Review of Systems: Yes all other systems are reviewed and are negative PMFSH Past Medical History Attestation statement: The following information was validated with the patient. Source: old records reviewed and nursing notes reviewed Physical Exam ED Exam Exam: General: Appears in no acute distress, appears well nourished body habitus is obese, appears stated age. No septic or ill-appearing. Vitals reviewed normal, PMH/Social and Surgical hx reviewed including allergies and current medications. - Head: Normocephalic, no obvious trauma or skin lesions noted. Eyes: EOMI ENMT: moist oral mucosa, no nuchal rigidity no lymphadenopathy no midline tenderness step-offs or deformities of entire spine moving neck side to side with no pain. She has a left upper trapezius spasm with mild tenderness to palpation but not of the bony area. She has a positive speed's test and positive Neer and Chatterjee test on the left side only. Negative Spurling test. Neurovascularly intact web database developer strength is 4+ equal symmetrically distal pulses 2+ equal bilaterally cap refill less than 3 seconds compartments are soft Neck: trachea midline Cardiovascular: peripheral perfusion normal, Regular heart rate regular rhythm Respiratory: no respiratory distress no chest wall tenderness Abdomen: nondistended but obese Extremities: warm and moving without difficulty- ab duction of the shoulder causes discomfort but no bony tenderness Psych: Cooperative Neuro: Alert and oriented. Vital Signs: Vital Signs - 24 hr 07/16/25 12:49 Temperature 98.7 F Pulse Rate 70 Respiratory Rate 18 Blood Pressure 165/81 H Pulse Oximetry 98 Oxygen Delivery Method Room Air BMI result Body Mass Index 36.3 Course Course Course Narrative: This is a Rapid Medical Examination (RME) performed by Krista Bolivar PA-C in triage. Full HPI, ROS, assessment and treatment plan per primary provider in the Main ED. Hx: 50 yo F here for eval of LUE pain/swelling. reports LUE pain, primarily to L shoulder, x weeks. provider ordered outpatient US - she has not had time to get this done. over the last 24 hours has noticed swelling extending from left hand to left neck. no injury/trauma. Plan: labs, US Medical Decision Making Medical Decision Making MDM Narrative: Well-appearing 50-year-old female with chronic left-sided shoulder and neck pain going on for several months now. Upon arrival to ED she is afebrile with VSS appearing in no acute distress. She received a rapid medical exam from triage with basic labs and an ultrasound of the left upper extremity ordered to rule out potential VTE. Please have resulted prior to me receiving care of the patient. Lab work reassuring no metabolic electrolyte imbalance and no VTE on ultrasound. On physical exam patient is presentation is most consistent with left-sided shoulder impingement syndrome secondary to chronic left-sided bicipital tendinitis. There is no evidence of neurovascular compromise and her exam is not suggestive of cervical radiculopathy. Neurovascularly intact. No CRPS. I recommended that patient follow up outpatient with Orthopedics for potential physical therapy referral or other interventions. No infectious etiology is present. I did not feel any further workup was indicated for this patient is stable we overall discussed the diagnosis in great detail patient demonstrated verbal understanding of the plan and agreed she will return for any worsening symptoms or concerns Differential Diagnosis Differential Diagnoses: The differential diagnosis associated with the presentation includes VTE, CRPS, compartment syndrome, shoulder impingement, shoulder strain Admission/Observation Consideration of admission/observation: Escalation of care including admission/observation considered Patient would have been admitted to the hospital had her work up had any findings where hospital admission was appropriate and her clinical presentation warranted hospital admission. Lab Data MDM Lab Attestation statement: I reviewed the patient's lab results. 07/16/25 13:28 07/16/25 13:28 Labs: Lab Results 07/16/25 Range/Units 13:28 WBC 9.3 (4.8-10.8) X10*3/uL RBC 4.53 (4.20-5.50) X10*6/uL Hgb 14.5 (12.0-16.0) g/dl Hct 41.6 (37.0-47.0) % MCV 91.8 (80.0-98.0) fL MCH 32.0 (27.0-33.0) pg MCHC 34.9 (31.0-35.0) g/dl RDW 13.7 (11.0-16.0) % Plt Count 282 (160-400) X10*3/uL MPV 9.3 L (9.4-12.3) fL Immature Gran % (Auto) 0.3 (0.0-0.4) % Neut % (Auto) 59.5 (45-73) % Lymph % (Auto) 31.7 (20-40) % Mcdonough % (Auto) 5.6 (2-11) % Eos % (Auto) 2.1 (0-4) % Baso % (Auto) 0.8 (0-2) % Lymph # (Auto) 2.9 (1.2-4.9) X10*3/uL Mcdonough # (Auto) 0.5 (0.1-1.2) X10*3/uL Eos # (Auto) 0.2 (0.0-0.4) X10*3/uL Baso # (Auto) 0.1 (0.0-0.2) X10*3/uL Abs Immat Gran (auto) 0.03 (0.00-0.03) X10*3/uL Absolute Neuts (auto) 5.5 (2.0-8.3) x10*3/uL Absolute Nucleated RBC 0.000 (0.0-0.012) X10*3/uL Nucleated RBC % (auto) 0.0 (0.0-0.2) /100WBC Sodium 141 (135-145) mmol/L Potassium 3.9 (3.3-5.1) mmol/L Chloride 107 (96-108) mmol/L Carbon Dioxide 25 (22-29) mmol/L Anion Gap 13 (12-20) BUN 13 (9-16) mg/dL Creatinine 0.79 (0.5-1.4) mg/dL Estim Creat Clear Calc 98.1 Estimated GFR > 60 Random Glucose 111 (60-115) mg/dL Calcium 9.0 (8.4-10.2) mg/dL Magnesium 1.9 (1.6-2.6) mg/dL Total Bilirubin 0.2 (0.0-1.0) mg/dL AST 24 (5-31) U/L ALT 22 (0-31) U/L Alkaline Phosphatase 86 (39-117) U/L Total Protein 7.2 (6.5-8.0) g/dL Albumin 4.4 (3.5-5.0) g/dL Lipase 33 (8-78) U/L Independent Interpretation I performed an independent interpretation of an: Ultrasound Interpretation: No VTE. Radiology Impression Discussion of test interpretation with radiology: I have reviewed the radiologist's reading. Radiologist Impression: No VTE Independent Historian Clinical information obtained from an independent historian. History obtained from or confirmed by: Spouse External Record Review External record reviewed: Outpatient record Prescription Management I considered prescription management with: Pain Medication Chronic Conditions Patient?s care impacted by: Other (Obesity) Discharge Plan Discharge Clinical Impression: Impingement syndrome of left shoulder, Biceps tendinitis of left shoulder Patient Disposition: Home, Self-Care Instructions: Shoulder Impingement Syndrome (ED) Additional Instructions: You were seen in the emergency department today due to ongoing left-sided shoulder discomfort. Your physical exam and history is most effective suggestive of left-sided shoulder impingement syndrome likely secondary to subacromial bursitis and bicipital tendinitis. It is recommended that you do follow up outpatient with Orthopedics. They will likely refer you to physical therapy. We discussed other care which sometimes can include steroid injections as well as receiving an MRI for surgical planning purposes. There is no evidence of neurovascular compromise today. You had a ultrasound done of your left upper extremity which shows no concerns of a clot. You also have blood work that shows no evidence of infection or electrolyte imbalance. In the interim I would avoid any above had work and I would not lift more than 5 lb but your left arm even consider with drinking. You may take 650 mg of Tylenol every 6 hours as needed for discomfort do not exceed 3000 mg in 24 hours. Consider topical therapies such as Biofreeze icy hot Oneal-Doll. I would even consider the use of lidocaine or Salonpas patches. Please return for concerning symptoms such as numbness or weakness of the limb- hope you continue to feel better! Prescriptions: No Action Vitamin D3 Zoloft ibuprofen 600 mg tablet 600 mg PO Q8H PRN (Reason: pain) Qty: 20 0RF oxycodone 5 mg tablet 5 mg PO Q6H PRN (Reason: pain) Qty: 8 0RF cyclobenzaprine 10 mg tablet 10 mg PO Q8H PRN (Reason: Muscle spasm) Qty: 14 0RF ibuprofen 800 mg tablet 800 mg PO Q8H PRN (Reason: pain) Qty: 14 0RF hydrocodone-acetaminophen 5-325 mg tablet 1 tab PO Q8H PRN (Reason: pain) Qty: 14 0RF Rx Instructions: Can be partially filled if patient request amoxicillin-pot clavulanate 875-125 mg tablet 1 tab PO BID 10 Days Qty: 20 0RF prednisone 20 mg tablet 20 mg PO DAILY 5 Days Qty: 5 0RF guaifenesin [Mucinex] 600 mg tablet extended release 12hr 600 mg PO Q12H PRN (Reason: congestion) Qty: 14 0RF [place] [facility] [place] [facility] [Provider Group] Referral Note: left shoulder impingement syndrome Interventions: ED Discharge Assessment Last Done: 07/16/25 16:21 Discharge Date/Time: 07/16/25 16:24 Print Language: Namibian
[2025-07-16 13:33] LABS: MANUAL DIFF FLAG NO
[2025-07-16 13:37] LABS: Hematocrit 41.6 % (37.0-47.0); Hemoglobin 14.5 g/dl (12.0-16.0); Imm Gran Abs Auto 0.03 X10*3/uL (0.00-0.03); Imm Gran Pct Auto 0.3 % (0.0-0.4); Lymphocytes Absolute Auto 2.9 X10*3/uL (1.2-4.9); Mean Corpuscular HGB Conc 34.9 g/dl (31.0-35.0); Mean Corpuscular Hemoglobin 32.0 pg (27.0-33.0); Mean Corpuscular Volume 91.8 fL (80.0-98.0); NRBC Abs Auto 0.000 X10*3/uL (0.0-0.012); NRBC Pct Auto 0.0 /100WBC (0.0-0.2); Platelet Count 282 X10*3/uL (160-400); Red Blood Count 4.53 X10*6/uL (4.20-5.50); White Blood Count 9.3 X10*3/uL (4.8-10.8)
[2025-07-16 13:50] LABS: Alanine Aminotransferase 22 U/L (0-31); Albumin Level 4.4 g/dL (3.5-5.0); Alkaline Phosphatase 86 U/L (39-117); Anion Gap 13 (12-20); Aspartate Amino Transferase 24 U/L (5-31); Blood Urea Nitrogen 13 mg/dL (9-16); Calcium 9.0 mg/dL (8.4-10.2); Carbon Dioxide 25 mmol/L (22-29); Chloride 107 mmol/L (96-108); Creatinine Clr Calc Pharmacy 98.1; Estimated Glomerular Filt Rate > 60; Lipase 33 U/L (8-78); Magnesium 1.9 mg/dL (1.6-2.6); Potassium 3.9 mmol/L (3.3-5.1); Sodium 141 mmol/L (135-145); Total Protein 7.2 g/dL (6.5-8.0)
[2025-07-16 16:21] VITALS: BP 165/81; PULSE 70; RESP 18; TEMP 37.1; O2SAT 98
--- OUTSIDE RECORDS SUMMARY | 2025-07-16 17:32 | XMS_ITS | Encounter Summary ---
Author Organization [facility] Address [address] [address] Phone Care Team Providers Care Ring Cutter Lathe Operator Name Role Phone Unknown, Unknown Primary Care Provider Bryce Franklin DO Unavailable Bryce Rolle DO Primary Care Provider [phone] Desiree Latif Primary Care Provider [phone] Encounter Details Date Type Department Care Team (Latest Contact Info) Description 11/09/2020 Transcribe Orders Virtual Department [address] [place] [address] Desiree Latif PA [address] [place] [address] [place] [address] Pain in right ankle and joints of right foot (Primary Dx) Social History Tobacco Use Types Packs/Day Years Used Date Smoking Tobacco: Never Assessed Comments Unknown Sex and Gender Information Value Date Recorded Sex Assigned at Not on file Legal Sex Female 6:26 PM EST Gender Identity Female 09/20/2023 7:26 PM EST Sexual Orientation Not on file documented as of this encounter Plan of Treatment Upcoming Encounters Date Type Department Care Team (Late st Contact Info) Description 09/23/2025 11:30 AM EST Office Visit [facility] [address] [place] [address] [place] [address] documented as of this encounter Visit Diagnoses Diagnosis Pain in right ankle and joints of right foot- Primary documented in this encounter Care Teams Ring Cutter Lathe Operator Relationship Specialty Start Date End Date Unknown, Unknown, MD PCP - General 11/09/20 12/14/21 Bryce oRlle DO [address] [place] [address] [email or web address] PCP - General Internal Medicine 12/15/21 03/10/25 Desiree Latif PA [address] [place] [address] PCP - General Physician Stem Roller Operator 03/11/25 Bryce Rolle DO [address] [place] [address] [email or web address] Insurance Assigned Provider 02/20/21 04/01/23 documented as of this encounter Additional Source Comments The information contained in this document represents components of the legal health record. It is not the complete legal health record.[facility]
--- OUTSIDE RECORDS SUMMARY | 2025-07-16 17:32 | XMS_ITS | Clinical Summary ---
Author Organization [facility] Address [address] [address] Phone Care Team Providers Care Early Childhood Associate Teacher Name Role Phone Desiree Latif Primary Care Provider [phone] Allergies Active Allergy Reactions Criticality Noted Date Comments Iodine Vomiting 04/22/2025 Naproxen 11/09/2022 Tramadol Other (See Comments) 04/22/2025 Unable to control body temperature. Tree Nuts 11/09/2022 Medications sertraline (ZOLOFT) 50 MG tablet Take 50 mg by mouth daily. 11/23/2021 Active sertraline (ZOLOFT) 25 MG tablet Take 25 mg by mouth daily. 11/23/2021 Active LORazepam (ATIVAN) 0.5 MG tablet Take 0.5 mg by mouth daily as needed. 09/19/2022 Active oxyCODONE 5 MG immediate release tablet Take 1 tablet (5 mg total) by mouth every 4 (four) hours as needed. Partial fill ok 15 tablet 11/01/2024 Active clindamycin (CLEOCIN T) 1 % gel APPLY A THIN LAYER TO THE AFFECTED AREA TWO TIMES A DAY 02/03/2025 Active estradioL (ESTRACE) 1 MG tablet TAKE 1 TABLET EVERY DAY BY MOUTH FOR 21 DAYS 01/09/2025 Active progesterone 200 mg Supp 08/15/2023 Active progesterone (PROMETRIUM) 100 mg capsule Take 2 capsules by mouth every morning. 03/12/2025 Active RESTASIS 0.05 % suspension INSTILL 1 DROP INTO AFFECTED EYE EVERY 12 HOURS Active EPINEPHrine 0.3 mg/0.3 mL auto-injector INJECT 0.3 ML INTO THE MUSCLE ONCE. MAY REPEAT DOSE ONCE AFTER 5-15 MINS Active Hospital, Clinic, or Other Facility Administered Medication Ordered Dose Route Frequency Start Date End Date Status lidocaine (XYLOCAINE) 1% injection 1 mL 1 mL See Adm Inst Once 03/27/2025 06/25/2025 Ended triamcinolone acetonide (KENALOG-40) 40 mg/mL injection 40 mg 40 mg See Adm Inst Once 03/27/2025 06/25/2025 Ended ROPivacaine (PF) (NAROPIN) 0.5% injection 3 mL 3 mL See Adm Inst Once 03/27/2025 06/25/2025 Ended Active Problems No known active problems Encounters Date Type Department Care Team Description 06/11/2025 Transcribe Orders [facility] [address] [place] [id number] Desiree Latif PA 05/22/2025 Transcribe Orders [facility] [address] [place] [address] Desiree Latif PA 05/21/2025 Transcribe Orders [facility] [address] [place] [address] Desiere Latif PA Hypoglycemia (Primary Dx) 05/06/2025 Telephone [facility] Sp[facility] [address] [place] [address] Desiree Latif PA same day cancel 04/22/2025 10:30 AM EDT Office Visit [facility] [address] [place] [address] Tex Johnson MD Greater trochanteric bursitis of left hip (Primary Dx); Primary osteoarthritis of left hip; Arthropathy of left sacroiliac joint; Primary osteoarthritis of one knee, right from Last 3 Months Social History Tobacco Use Types Packs/Day Years Used Date Smoking Tobacco: Former Cigarettes Smokeless Tobacco: Never Alcohol Use Standard Drinks/Week Comments Not Asked 0 (1 standard drink = 0.6 oz pur e alcohol) NO Education Answer Date Recorded Are you interested in more education? Not on margarito e 03/19/2023 Are you concerned about learning? Not on file 03/19/2023 No 03/19/2023 No 03/19/2023 Digital Access Answer Date Recorded No 04/09/2023 No 04/09/2023 Reliable internet access at home? Not on file 04/09/2023 Device with a working camera? Not on file Comments Unknown Sex and Gender Information Value Date Recorded Sex Assigned at Not on file Legal Sex Female 6:26 PM EST Gender Identity Female 09/20/2023 7:26 PM EST Sexual Orientation Not on file Last Filed Vital Signs Vital Sign Reading Time Taken Comments Blood Pressure 128/82 10/22/2024 10:00 AM EST Pulse 57 10/22/2024 10:00 AM EST Temperature 36.3 C (97.3 F) 10/22/2024 10:00 AM EST Respiratory Rate - - Oxygen Saturation 98% 10/22/2024 10: 00 AM EST Inhaled Oxygen Concentration - - Weight 102.5 kg (225 lb 15.5 oz) 2024 10:13 AM EDT Height 165.1 cm (5' 5 ) 03/18/2025 3:40 PM EDT Body Mass Index 37.6 03/18/2025 3:40 PM EDT Plan of Treatment Upcoming Encounters Date Type Department Care Team (Late st Contact Info) Description 09/23/2025 11:30 AM EST Office Visit [facility] [address] [place] [address] Jakob Randall DO [address] [place] [phone] [email or web address] Health Maintenance Due Date Last Done Comments Adult Td,Tdap Booster 1974 LIPID PANEL 1974 DEPRESSION SCREENING 1986 SMOKING Hx and SMOKELESS TOBACCO SCREENING 1987 HEPATITIS C SCREENING 1992 HIV ONE-TIME SCREENING (18-65 YEARS) 1992 PAP SMEAR 1995 SCREENING FOR DIABETES 2009 MAMMOGRAM 2014 COLOGUARD 2019 COLONOSCOPY 2019 COLORECTAL CANCER SCREENING 2019 FIT TEST 2019 FOBT 2019 SIGMOIDOSCOPY 2019 VIRTUAL COLONOSCOPY 2019 PNEUMOCOCCAL VACCINES (50+ years) (1 of 1 - PCV) 2024 ZOSTER VACCINES (1 of 2) 2024 INFLUENZA VACCINE (#1) 2025 09/18/2020 COVID-19 VACCINE Completed 01/16/2025, 08/2023, 09/13/2021, Additional history exists HEPATITIS A VACCINES Aged Out No long er eligible based on patient's age to complete this topic HIB VACCINES Aged Out No longer eligi ble based on patient's age to complete this topic MENINGOCOCCAL VACCINES (ACWY) Aged Out No longer eligible based on patient's age to complete this topic MENINGOCOCCAL VACCINES (B) Aged Out N o longer eligible based on patient's age to complete this topic Medical Devices Not on file Insurance [facility] [place] [address] [place] [address] [place] [address] [place] [address] [place] [place] [address] PCC Care Teams Early Childhood Associate Teacher Relationship Specialty Start Date End Date Desiree Latif PA [address] [place] [id number] PCP - General Physician Earth Science Faculty Member 03/11/25 Additional Source Comments The information contained in this document represents components of the legal health record. It is not the complete legal health record.[facility]
--- OUTSIDE RECORDS SUMMARY | 2025-07-16 17:32 | XMS_ITS | Encounter Summary ---
Author Organization [facility] Address [address] [facility] [address] [place] [address] Phone Care Team Providers Care Sap Consultant Name Role Phone Desiree Latif Primary Care Provider Reason for Visit * Reason Onset Date Comments same day cancel 05/06/2025 Encounter Details Date Type Department Care Team (Late st Contact Info) Description 05/06/2025 Telephone [email or web address] [address] [place] [address] Desiree Latif PA [address] [facility] [place] [address] [place] [address] same day cancel Social History Tobacco Use Types Packs/Day Years [...] on file documented as of this encounter Progress Notes * MonteiroDouglas valencia - 05/06/2025 10:43 AM EDT 24-48 Hour No-Show Notice If caller not the patient: Name: Relationship: Cancel Appt Visit Type: NEW PATIENT VISIT Cancelation Reason: Personal Reasons Cancelation Detail: too much going on Was Appt Reschedule: No Why Reschedule was not performed (W/Detail) Pt stated they wouldcall back to reschedule Awareness: I have reiterated our late cancellation policy to the caller. Agent Action: > Reason for Call: NO SHOW > Comment: Enter Cancel Appt date > Route: Only route to FD if the No-Show is a future date Call Center: Ensure the appt has been cancel from the future tab > Reiterate Scripting: Provide our late cancellation policy to the caller Required Scripting for Existing Patients: Thank you for notifying us about the cancellation. We will inform the provider. As a reminder, our policy requires at least 24 hours' notice for cancellations, as providers reserve time for your appointment, and short notice often makes it difficult to reschedule. You can cancel appointments anytime through your [facility] [place]. We appreciate your understanding. Required Scripting for New Patients: Thank you for notifying us about the cancellation. We will inform the provider. Please be aware of our 48-hour cancellation policy for new patients. If you need to cancel or reschedule, we ask for at least 48 hours' notice. If you miss an appointment or cancel without sufficient notice, it will be marked as a No-Show appointment. We allow for two unforeseen circumstances under this policy. This policy ensures that our providers can manage their schedules effectively. Additionally, you can cancel appointments anytime through your [facility]. documented in this encounter Plan of Treatment Upcoming Encounters Date Type Department Care Team (Late st Contact Info) Description 09/23/2025 11:30 AM EST Office Visit [facility] [address] [place] [address] [place] [address] Jakob Randall, [address] [place] [phone] [email or web address] documented as of this encounter Visit Diagnoses Not on filedocumented in this encounter Care Teams Sap Consultant Relationship Specialty Start Date End Date Desiree Latif PA [address] [place] [phone] PCP - General Physician Case Checker 03/11/25 documented as of this encounter Additional Source Comments The information contained in this document represents components of the legal health record. It is not the complete legal health record.[facility]
--- OUTSIDE RECORDS SUMMARY | 2025-07-16 17:32 | XMS_ITS | Encounter Summary ---
Author Organization [facility] Address [address] [facility] [address] [place] [address] Phone Care Team Providers Care Director Of Digital Technology Name Role Phone KatherineBryce liang Tomas HENNESSY Primary Care Provider [phone] Desiree Latif Primary Care Provider [phone] Encounter Details Date Type Department Care Team (Late st Contact Info) Description 11/01/2024 [employer] Generated VIRTUAL DEPARTMENT [address] [place] [phone] Unknown, Unknown, Social History Tobacco Use Types Packs/Day Years [...] on file documented as of this encounter Procedure Notes * Ron Santillan MD - 11/01/2024 12:00 AM EST [employer] PREOPERATIVE DIAGNOSIS: Right knee medial meniscus tear. POSTOPERATIVE DIAGNOSIS: Right knee medial meniscus tear. NAME OF PROCEDURE: 1. Right knee arthroscopy. 2. Partial medial meniscectomy. 3. Patellofemoral chondroplasty cartilage mapping. HISTORY OF PRESENT ILLNESS: The patient is a pleasant 49-year-old woman with ongoing right knee pain with a medial femoral condyle lesion and a potential medial meniscus tear. After discussion of the risks, benefits, and alternatives, the role of arthroscopy and treating cartilage lesions for planning potential future cartilage surgery as well as treatment of any meniscal pathology. The patient elected to proceed with the above procedure. DESCRIPTION OF PROCEDURE: Informed consent was reviewed. The patient was transported to the operating room and placed supine on the regular OR table. All bony prominences were well padded. Right knee prepped and draped in usual sterile orthopedic fashion. Pre-procedure pause was performed to verify the patient's identity, administration of 2 grams of Ancef 30 minutes prior to planned incision. Presence of surgeon's initials on the right knee. Standard inferolateral portal was made. Blunt trocar was used to enter the suprapatellar pouch. Diagnostic arthroscopy showed significant synovitis and chondral debris in the suprapatellar pouch. This was suctioned and shaved out. Right knee patellofemoral joint with grade II changes, especially along the trochlea, this was debrided with a shaver. Medial compartment entered. There was an approximately 2 cm round medial compartment lesion, grade III of the medial femoral condyle, oblique tear of the posterior horn of the medial meniscus. The meniscus tear was debrided with a shaver. The cartilage edges were debrided with a shaver back to a stable border. The notch was entered. ACL and PCL were probed and found to be intact. The lateral compartment, anterolateral meniscus, and cartilage intact. The knee was then drained of all fluid. No other lesions were noted in the knee and incisions were closed with 3-0 Monocryl, dressed with Steri-Strips, 4 x 4's, and Jas wrap. POSTOPERATIVE CARE: The patient will weightbearing as tolerated, range of motion as tolerated, aspirin 325 mg daily for 2 weeks, chemical DVT prophylaxis. FOCI DT: 1021 TD:11/28/24 TT:1423 ID: [id number] RON SANTILLAN MD electronically signed 12/03/24 1451 CC OTHER PROVIDER: PRIMARY CARE: UNLISTED PROVIDER documented in this encounter Plan of Treatment Upcoming Encounters Date Type Department Care Team (Late st Contact Info) Description 09/23/2025 11:30 AM EST Office Visit [facility] [address] [place] [address] Jakob Randall DO [address] [place] [address] documented as of this encounter Visit Diagnoses Not on filedocumented in this encounter Care Teams Director Of Digital Technology Relationship Specialty Start Date End Date Bryce Rolle DO PCP - General Internal Medicine 12/15/21 03/10/25 Desiree Latif PA [address] [place] [phone] PCP - General Physician [employer] Conservation Laborer 03/11/25 documented as of this encounter Additional Source Comments The information contained in this document represents components of the legal health record. It is not the complete legal health record.[facility]
== END 2025-07-16 16:24 | disposition home or self-care (01) ==
PROVIDERS: Physician Assistant Medical; Emergency Provider Emergency Medicine; PCP Internal Medicine
DX: M75.42 Impingement syndrome of left shoulder (principal); M75.32 Calcific tendinitis of left shoulder; M79.602 Pain in left arm; M54.2 Cervicalgia; R60.0 Localized edema; Z79.899 Other long term (current) drug therapy
CPT/HCPCS: 36415; 80053; 83690; 83735; 85025; 93971; 99282; 99284

== ENCOUNTER → 2025-07-16 12:50 | Outpatient (BNV) | payer MEDICAID, SELFPAY | PROVIDERS: Emergency Provider Emergency Medicine; PCP Internal Medicine; Visit Provider Radiology Diagnostic Radiology | DX: R22.32 Localized swelling, mass and lump, left upper limb (principal) | CPT/HCPCS: 93971 ==

== ENCOUNTER 2025-11-03 13:57 | Outpatient (REF) | payer MEDICAID, SELFPAY ==
--- OUTSIDE RECORDS SUMMARY | 2025-11-03 17:27 | XMS_ITS | Encounter Summary ---
Author Organization [facility] Address [address] [facility] [address] [place] [address] Phone Care Team Providers Care Service Delivery Director Name Role Phone KatherineBryce liang Tomas HENNESSY Primary Care Provider [phone] Desiree Latif Primary Care Provider [phone] Encounter Details Date Type Department Care Team (Late st Contact Info) Description 11/01/2024 [employer] Generated VIRTUAL DEPARTMENT [address] [place] [phone] Unknown, Unknown, Social History Tobacco Use Types [...] Santillan MD - 11/01/2024 12:00 AM EST [employer] PREOPERATIVE DIAGNOSIS: Right knee medial meniscus tear. [...] prophylaxis. FOCI DT: 1021 TD:11/28/24 TT:1423 ID: [id number] RON SANTILLAN MD electronically signed 12/03/24 1451 CC OTHER PROVIDER: PRIMARY CARE: UNLISTED PROVIDER documented in this encounter Plan of Treatment Upcoming Encounters Date Type Department Care Team (Late st Contact Info) Description 11/19/2025 1:45 PM EST Office Visit [facility] [address] [place] [address] Desiree Latif PA [address] [place], [place] [phone] Estephania Montenegro, PT [address] [place], [place] [phone] 11/26/2025 1:45 PM EST Office Visit [facility] [address] [place] [address] Desiree Latif PA [address] [place] [address] Estephaina Montenegro, PT [address] [place], [place] [phone] 12/03/2025 1:45 PM EST Office Visit [facility] [address] [place] [address] [phone] Desiree Latif PA [address] [place] [address] Estephania Montenegro, PT [address] [place], [place] [phone] 12/10/2025 1:45 PM EST Office Visit [facility] Physical Therapy [address] [address] Desiree Latif PA [address] [place] [address] Estephania Montenegro, PT [address] [place] [address] 12/17/2025 1:45 PM EST Office Visit [facility] Physical Therapy [address] [address] Desiree Latif PA [address] [place] [address] Estephania Montenegro, PT [address] [place] [address] 12/24/2025 1:45 PM EST Office Visit [facility] [address] [place] [address] Desiree Latif PA [address] [place] [address] Estephania Montenegro, PT [address] [place] [address] 01/05/2026 3:40 PM EST Office Visit [facility] End[facility]ology Clinic [address] [place] [address] Jakob Randall DO [address] [place] [address] documented as of this encounter Visit Diagnoses Not on filedocumented in this encounter Care Teams Service Delivery Director Relationship Specialty Start Date End Date Bryce Rolle DO PCP - General Internal Medicine 12/15/21 03/10/25 Desiree Latif PA [address] [place] [phone] PCP - General Physician Biofuels Research Scientist 03/11/25 documented as of this encounter Additional Source Comments The information contained in this document represents components of the legal health record. It is not the complete legal health record.[facility]
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
--- OUTSIDE RECORDS SUMMARY | 2025-11-03 17:27 | XMS_ITS | Clinical Summary ---
Author Organization [facility] Address [address] [place], [place] [address] Care Team Providers Care Sewer Contractor Name Role Phone Bryce Rolle MD Primary Care Provider [phone] Medications cycloSPORINE (RESTASIS) 0.05 % ophthalmic emulsion INSTILL 1 DROP INTO AFFECTED EYE EVERY 12 HOURS Active clindamycin (CLEOCIN-T) 1 % gel APPLY A THIN LAYER TO THE AFFECTED AREA TWO TIMES A DAY 02/03/2025 Active EPINEPHrine 0.3 mg/0.3 mL injection INJECT 0.3 ML INTO THE MUSCLE ONCE. MAY REPEAT DOSE ONCE AFTER 5-15 MINS Active estradioL (ESTRACE) 1 MG tablet Take 1 tablet (1 mg total) by mouth in the morning. 01/09/2025 Active LORazepam (ATIVAN) 0.5 MG tablet TAKE ONE TABLET BY MOUTH ONCE A DAY NEEDED 09/19/2022 Active progesterone (PROMETRIUM) 100 MG capsule Take 2 capsules (200 mg total) by mouth in the morning. Active sertraline (ZOLOFT) 50 MG tablet TAKE ONE TABLET BY MOUTH EVERY DAY WITH THE 25MG TABLET 11/23/2021 Active sertraline (ZOLOFT) 25 MG tablet Take 1 tablet (25 mg total) by mouth in the morning. 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 Diverticulitis of colon 01/08/2024 Headache disorder 09/16/2022 Chronic recurrent sinusitis 09/09/2022 Arthralgia of right knee 09/07/2022 Anand red spot of macula 09/07/2022 Empyema of pleura 09/06/2022 Anxiety 10/14/2020 Depressive disorder 10/14/2020 Resolved Problems Problem Noted Date Diagnosed Date Resolved Date Pancreatic insufficiency 04/30/2025 Encounters Date Type Department Care Team Description 10/02/2025 6:10 AM EST - 10/02/2025 11:59 PM EST Hospital Encounter [address] [address] Mane Leger MD Hypoglycemia (Primary Dx) Discharge Disposition: Home or Self Care 09/23/2025 Telephone [facility] Gastroenterology [address] [address] Mane Leger MD Referral Inquiry Ms. Vargas 09/21/2025 Results Follow-Up [facility]enter[facility] [address] [address] Anna Mustafa MD C-peptide, Proinsulin, Insulin, Total, MRI MRCP With and Without Contrast 09/12/2025 2:35 PM EDT Lab [address] [address] Mane Leger MD Hypoglycemia 09/12/2025 1:00 PM EDT Office Visit [facility] Gastroenterology [address] [address] Mane Leger MD Hypoglycemia (Primary Dx) from Last 3 Months Social History Tobacco Use Types Packs/Day Years Used Date Smoking Tobacco: Never Assessed Comments Unknown Sex and Gender Information Value Date Recorded Sex Assigned at Female 06/03/2025 10:34 AM EDT Legal Sex Female 10:29 AM EDT Gender Identity Female 06/03/2025 10:34 AM EDT Sexual Orientation Not on file Plan of Treatment Upcoming Encounters Date Type Department Care Team (Late st Contact Info) Description 02/09/2026 2:30 PM EDT Office Visit [facility] Endocrinology [address] [address] Manuel Nowak MD [address] [place] [phone] In Person with Physician Health Maintenance Due Date Last Done Comments Blood Pressure 1974 Lipid Panel 1974 Depression Screening 1986 Hepatitis C Screening 1992 DTaP,Tdap,and Td Vaccines (1 - Tdap) 1993 Pap Smear 1995 Cervical Cancer Screening 2004 HPV/Cotest 2004 Breast Cancer Screening 2014 CT Colonography 2019 Colonoscopy 2019 Colorectal Cancer Screening 2019 FIT 2019 FOBT 2019 Multitarget Stool DNA (Cologuard) 2019 Sigmoidoscopy 2019 Pneumococcal Vaccine: 50+ Years (1 of 1 - PCV) 2024 Zoster Vaccine (1 of 2) 2024 COVID-19 Vaccine ( - season) 2025 01/16/2025, 08/22/2023, 09/13/2021, Additional history exists Influenza Vaccine (#1) 2025 09/18/2020, 2019 Meningococcal B Vaccines Aged Out No longer eligible based on patient's age to complete this topic Meningococcal Vaccines Aged Out No lo nger eligible based on patient's age to complete this topic Procedures Procedure Name Priority Date/Time Associated Diagnosis Comments MRI MRCP W WO CONTRAST STAT 10/02/2025 7:24 AM EST Hypoglycemia INSULIN, TOTAL Routine 09/12/2025 2:48 PM EDT Hypoglycemia PROINSULIN Routine 09/12/2025 2:48 PM EDT Hypoglycemia C-PEPTIDE Routine 09/12/2025 2:48 PM EDT Hypoglycemia from Last 3 Months Results * MRI MRCP With and Without Contrast (10/02/2025 7:24 AM EST) Anatomical Region Laterality Modality Abdomen Magnetic Resonan ce 10/07/2025 2:25 PM EST Impressions 10/08/2025 3:02 PM EST Pancreatic lipomatosis without evidence of pancreatic malignancy. BY ELECTRONICALLY SIGNING THIS REPORT, I THE ATTENDING PHYSICIAN ATTEST THAT I HAVE REVIEWED THE IMAGES FOR THE ABOVE PROCEDURE(S) AND AGREE WITH THE FINDINGS DOCUMENTED. Jorge L Floyd MD , Brett Jones MD, electronically signed on Oct 08 2025 03:02PM Narrative 10/08/2025 3:02 PM EST EXAMINATION: MRI of the Abdomen INDICATION: r/o pancreatic mass, recurrent hypoglycemia episodes; TECHNIQUE: T1- and T2-weighted multiplanar images of the abdomen were acquired in a 1.5 T magnet. Intravenous contrast: 9 mL Gadavist. Oral contrast: 1 cc of Gadavist mixed with 50 cc of water was administered for oral contrast. COMPARISON: None. FINDINGS: Lower Thorax: Visualized lower thorax is within normal limits. Liver: The liver demonstrates normal signal intensity. There is no suspicious hepatic lesion. Bile Ducts: There is no intra- or extrahepatic biliary dilatation. There are no biliary filling defects. Gallbladder: The gallbladder is unremarkable without gallstones. Pancreas: Normal pancreatic volume with pancreatic lipomatosis. No ductal dilatation. No concerning lesion. Spleen: The spleen is normal in appearance and size. Small anteromedial splenule. Adrenal Glands: The adrenal glands are bilaterally normal in appearance. Kidneys: There is no hydronephrosis or proximal hydroureter. The kidneys show symmetric enhancement without solid or concerning lesion. Gastrointestinal Tract: The stomach is grossly unremarkable. Visualized large and small bowel loops are within normal limits. Lymph Nodes: There is no mesenteric or retroperitoneal lymphadenopathy. Vasculature: The visualized abdominal vasculature appears within normal limits. Peritoneum: There is no free fluid. Osseous and Soft Tissue Structures: Within normal limits where visualized. Procedure Note Brett Jones MD - 10/08/2025 EXAMINATION: MRI of the Abdomen INDICATION: r/o pancreatic mass, recurrent hypoglycemia episodes; TECHNIQUE: T1- and T2-weighted multiplanar images of the abdomen were acquired in a 1.5 T magnet. Intravenous contrast: 9 mL Gadavist. Oral contrast: 1 cc of Gadavist mixed with 50 cc of water was administered for oral contrast. COMPARISON: None. FINDINGS: Lower Thorax: Visualized lower thorax is within normal limits. Liver: The liver demonstrates normal signal intensity. There is no suspicious hepatic lesion. Bile Ducts: There is no intra- or extrahepatic biliary dilatation. There are no biliary filling defects. Gallbladder: The gallbladder is unremarkable without gallstones. Pancreas: Normal pancreatic volume with pancreatic lipomatosis. No ductal dilatation. No concerning lesion. Spleen: The spleen is normal in appearance and size. Small anteromedial splenule. Adrenal Glands: The adrenal glands are bilaterally normal in appearance. Kidneys: There is no hydronephrosis or proximal hydroureter. The kidneys show symmetric enhancement without solid or concerning lesion. Gastrointestinal Tract: The stomach is grossly unremarkable. Visualized large and small bowel loops are within normal limits. Lymph Nodes: There is no mesenteric or retroperitoneal lymphadenopathy. Vasculature: The visualized abdominal vasculature appears within normal limits. Peritoneum: There is no free fluid. Osseous and Soft Tissue Structures: Within normal limits where visualized. IMPRESSION: Pancreatic lipomatosis without evidence of pancreatic malignancy. BY ELECTRONICALLY SIGNING THIS REPORT, I THE ATTENDING PHYSICIAN ATTEST THAT I HAVE REVIEWED THE IMAGES FOR THE ABOVE PROCEDURE(S) AND AGREE WITH THE FINDINGS DOCUMENTED. Jorge L Floyd MD , Brett Jones MD, electronically signed on Oct 08 2025 03:02PM us Mane Leger MD IMG MRI ORDERABLES Final Resu lt * Proinsulin (09/12/2025 2:48 PM EDT) Proinsulin 11.1 < OR = 18.8 pmol/L 09/20/2025 6:00 AM EST [facility] Comment: This test was performed using a laboratory developed OSMAR method. Values obtained from different assay methods cannot be used interchangeably. Proinsulin levels, regardless of value, should not be interpreted as absolute evidence of the presence or absence of disease. This test was developed and its analytical performance characteristics have been determined by [facility]. It has not been cleared or approved by the FDA. This assay has been validated pursuant to the CLIA regulations and is used for clinical purposes. Blood PERIPHERAL BLOOD SPECIMEN / Unknown Venipuncture / Unknown 09/12/2025 2:48 PM EDT 09/12/2025 2:48 PM EDT Narrative [facility] - 09/20/2025 6:00 AM EST Performing Organization Information: Site ID: [id number] Name: [employer]/[facility] Address: [id number] [place] [phone] Director: DOLORES CASE MD,PHD,ALYX Mane Leger MD LAB BLOOD ORDERABLES Final Re sult Performing Organization Address [facility] Co de Phone Number [address] [address], * Insulin, Total (09/12/2025 2:48 PM EDT) Pathologist [facility] Insulin, Fasting 8.7 uIU/mL 09/13/20 1:00 AM EDT [facility] Comment: Reference Range < or = 18.4 Risk: Optimal < or = 18.4 Moderate NA High >18.4 Adult cardiovascular event risk category cut points (optimal, moderate, high) are based on Insulin Reference Interval studies performed at [facility] in 2021. Blood PERIPHERAL BLOOD SPECIMEN / Unknown Venipuncture / Unknown 09/12/2025 2:48 PM EDT 09/12/2025 2:48 PM EDT Narrative [facility] - 09/13/2025 1:00 AM EDT Performing Organization Information: Site ID: [id number] Name: [employer] [facility] Address: [address] [place] [phone] Director: LUCAS REDDY MD Mane Leger MD LAB BLOOD ORDERABLES Final Re sult Performing Organization Address [facility] de Phone Number [address] [address], * C-peptide (09/12/2025 2:48 PM EDT) [facility] C-Peptide 2.41 0.80 - 3.85 ng/mL 09/13/2025 11:00 AM EDT [facility] Blood PERIPHERAL BLOOD SPECIMEN / Unknown Venipuncture / Unknown 09/12/2025 2:48 PM EDT 09/12/2025 2:48 PM EDT Narrative [facility] - 09/13/2025 11:00 AM EDT Performing Organization Information: Site ID: [id number] Name: [employer] Address: [address] [place] [phone] Director: LUCAS REDDY MD Mane Leger MD LAB BLOOD ORDERABLES Final Re sult [facility] [address] [place] [address], [place] [phone] from Last 3 Months Insurance HEALTH Care Teams Sewer Contractor Relationship Specialty Start Date End Date Bryce Rolle MD [address] [place] [id number] PCP - General Internal Medicine 06/03/25
--- OUTSIDE RECORDS SUMMARY | 2025-11-03 17:27 | XMS_ITS | Clinical Summary ---
Author Organization [facility] Address [address] [address] Phone Care Team Providers Care Environmental Services Attendant Name Role Phone Desiree Latif Primary Care Provider Allergies Active Allergy Reactions Criticality Noted Date [...] by mouth daily as needed. 09/19/2022 Active clindamycin (CLEOCIN T) 1 % gel [...] REPEAT DOSE ONCE AFTER 5-15 MINS Active Active Problems Problem Noted Date Diagnosed Date Hypoglycemia 09/23/2025 Assessment & Plan (09/23/2025 12:08 PM EST): This is a patient who has been having symptoms of hypoglycemia with syncopal episodes or near syncopal episodes. The symptoms are typically triggered with some type of physical activity heat or fatigue. She states her symptoms have been less and less as the weather has gotten colder. So it is actually quite odd because there is no pattern for the hypoglycemia whether it is in the morning or postprandial after eating. In fact it is not associated with food intake. She is not diabetic and she does not appear to be taking any medications associated with hypoglycemia. In fact the preliminary workup shows that proinsulin, insulin and C-peptide levels are in the reference range so she does not have a pro insulinoma. She is not hyperinsulinemic and her C-peptide indicates that she is actively producing insulin. It does not appear that this is factitious from insulin administration otherwise her C- peptide will be suppressed. Other studies have been done such as an ACTH which was in the reference range 24-hour urine cortisol. 24-hour urine cortisol is very sensitive and specific but sometimes he does not picking machine operator helper cortisol elevations because is somewhat episodic so a better test will be fasting serum cortisol. IGF-1 levels were not done and we can check IGF-I for evaluation of growth hormone deficiency. Also insulin antibodies were not done. Sometimes people with insulin antibodies have binding of insulin and asked the antibodies dissociate for him so insulin is free to bind his receptor hours after a meal resulting in hypoglycemia. The only problem with this diary is that it is not remotely associated with food intake. Again since it has not been associated with food intake I cannot say that this is gastric dumping postprandial hypoglycemia. Also she did inquire about the CGM. I do not think that switching CGM to Dexcom is going to be any more helpful. We know that the CGM tends to be most inaccurate with lower glucose levels. Furthermore, using CGM for undiagnosed hypoglycemia is not recommended because is not precise. The CGM monitors interstitial fluid not actual blood glucose. I think glucose meter would have been preferable even though we cannot even use a meter to document hypoglycemia it will have to be serum blood glucose. Which is actually quite difficult to obtain. Diaphoresis 09/23/2025 Assessment & Plan (09/23/2025 12:14 PM EST): She has diarrhea, diaphoresis that heat intolerance so potentially she can have some other condition may be carcinoid syndrome I we will check 5 HIAA for screening and also tryptase level for mastocytosis/mast cell activation syndrome. Encounters Date Type Department Care Team Description 09/29/2025 Transcribe Orders [facility] [address] [place] [address] Michelle Ballesteros Encounter for rehabilitation (Primary Dx) 09/23/2025 11:30 AM EST Office Visit [facility] Endocrinology [facility] [address] [place] [address] Jakob Randall DO Hypoglycemia (Primary Dx); Diaphoresis from Last 3 Months Family History Medical History Relation Comments Coronary artery disease Father Melanoma Father Stroke Father Atrial fibrillation Mother Relation Status Comments Father Alive Mother Alive Social History Tobacco Use Types Packs/Day Years [...] a working camera? Not on file Comments No Sex and Gender Information Value Date Recorded Sex Assigned at Not on file Legal Sex Female 6:26 PM EST Gender Identity Female 09/20/2023 7:26 PM EST Sexual Orientation Not on file Last Filed Vital Signs Vital Sign Reading Time Taken Comments Blood Pressure 124/74 09/23/2025 10:56 AM EST Pulse 80 09/23/2025 10:56 AM EST Temperature 36.3 C (97.3 F) 10/22/2024 10:00 AM EST Respiratory Rate - - Oxygen Saturation 98% 10/22/2024 10: 00 AM EST Inhaled Oxygen Concentration - - Weight 107.5 kg (237 lb 1.3 oz) 025 10:56 AM EST Height 162.1 cm (5' 3.81 ) 09/23/2025 1 0:56 AM EST Body Mass Index 40.94 09/23/2025 10:56 AM EST Plan of Treatment Upcoming Encounters Date Type Department Care Team (Late st Contact Info) Description 11/19/2025 1:45 PM EST Office Visit [facility] Physical Therapy [address] [address] Desiree Latif PA [address] [place] [address] Estephania Montenegro, PT [address] [place] [address] 11/26/2025 1:45 PM EST Office Visit [facility] Physical Therapy [address] [address] Desiree Latif PA [address] [place] [address] Estephania Montenegro, PT [address] [place] [address] 12/03/2025 1:45 PM EST Office Visit [facility] Physical Therapy [address] [address] Desiree Latif PA [address] [place] [address] Estephania Montenegro, PT [address] [place] [address] 12/10/2025 1:45 PM EST Office Visit [facility] Physical Therapy [address] [address] Desiree Latif PA [address] [place] [address] Estephania Montenegro, PT [address] [place] [address] 12/17/2025 1:45 PM EST Office Visit [facility] [address] [place] [phone] Desiree Latif PA [address] [place] [address] Estephania Montenegro, PT [address] [place] [address] 12/24/2025 1:45 PM EST Office Visit [facility] [address] [place] [id number] Desiree Latif PA [address] [place] [address] Estephania Montenegro, PT [address] [place] [address] 01/05/2026 3:40 PM EST Office Visit [facility] Endocrinology Clinic [address] [place] [phone] Jakob Randall DO [address] [place] [phone] [email or web address] Health Maintenance Due Date [...] years) (1 of 1 - PCV) 2024 RSV VACCINE (1 - Risk 50-74 years 1-dose series) 2024 ZOSTER VACCINES (1 of 2) 2024 INFLUENZA VACCINE (#1) 2025 09/18/2020 COVID-19 VACCINE ( season) 2025 01/16/2025, 08/22/2023, 09/13/2021, Additional history exists HEPATITIS A VACCINES [...] topic Medical Devices Not on file Insurance [address] [address] [facility] [address] [place] [address] [place] [address] [place] [address] [address] [facility] PCC Care Teams Environmental Services Attendant Relationship Specialty Start Date End Date Desiree Latif PA [address] [place] [address] PCP - General Physician Cvicu Rn 03/11/25 Additional Source Comments The information contained in this document represents components of the legal health record. It is not the complete legal health record.[facility]
--- OUTSIDE RECORDS SUMMARY | 2025-11-03 17:27 | XMS_ITS | Continuity of Care Document ---
Author Organization [facility] Address [address] [facility] [place] [address] [place] [address] Assessment No assessment recorded. Plan of Treatment Reminders Order Date Submit Date Provider Last Modified By Organization Details Last Modified Time Details Appointments None recorded. Lab None recorded. Referral physical therapist referral 2024 025 [facility] [address] [facility], [address] [address], [place], [address], 5 08:33:52 endocrinol ogy referral - seeing Mane Leger MD office currently as well REFERRAL SUBMITTED TO [facility]IL[facility]NA [facility], [address] [place] [address], [address], 5 11:23:15 Procedures None recorded. Surgeries None recorded. Imaging None recorded. Medication Orders estradiol 1 mg tablet 2024 025 [id number], [address] [place], [address], 5 09:40:57 progestero ne micronized 100 mg capsule 2024 025 [id number], [address] [place], [address], 5 09:40:56 lorazepam 0.5 mg tablet 2024 025 [email or web address][id number], [address] [place], [address], 5 13:31:45 Patient TargetsNo targets recorded. Patient InstructionsNo instructions recorded. Reason for Referral Endocrinology Referral for H ypoglycemia seeing Mane Leger MD office currently as wellREFERRAL SUBMITTED TO SILVANA JONES Referring Physician: Desiree Latif, Internal Medicine, Encounter Date: 09/24/2025 Physical Therapist Referral for Pain of left shoulder joint L shoulder impingement, L shoulder pain Referring Physician: Desiree Latif, Internal Medicine, Encounter Date: 09/24/2025 Problems Name Problem SNOMED Code Status Onset Date Resolution Date Notes Provider Name and Address Organization Details Recorded Time Anxiety 08820539 Active 2019 LIBBY MONTEZ [address] [place] [address], [address], [facility] 0 10:31:53 Depressiv e disorder 06718994 Active 2019 LIBBY MONTEZ [address] [place] [address], [address], [facility] 0 10:32:04 Facial swelling 739433689 Active 2021 LIBBY MONTZE [address] [place] [address], [address], [facility] 2 12:30:06 Chronic sinusitis 48141467 Active 2021 LIBBY MONTEZ [address] [place] [address], [address], [facility] 2 10:25:49 Empyema of pleura 69395063 Active 2021 LIBBY MONTEZ [address] [place] [address], [address], [facility] 2 10:47:18 Pleurisy 424167706 Active 2021 LIBBY MONTEZ [address] [place] [address], [address], [facility] 2 10:47:24 Costal chondriti s 61397713 Active 2021 LIBBY MONTEZ [address] [place], [address], [facility] 2 16:48:33 Infection of lacrimal gland 299955435 Active 2021 LIBBY MONTEZ [address] [place], [address], [facility] 2 16:50:40 Candidias is of vagina 30154948 Active 2021 LIBBY MONTEZ [address] [place] [address], [address], [facility] 2 16:55:06 Pain of right knee joint 544812727992 100 Active 2021 LIBBY MONTEZ [address] [place] [address], [address], [facility] 5 12:49:48 Low back pain 249551218 Active 2021 LIBBY MONTEZ [address] [place] [address], [address], [facility] 2 16:59:41 Anand red spot 28078691 Active 2021 LIBBY MONTEZ [address] [place] [address], [address], [facility] 2 17:09:19 Chronic recurrent sinusitis 221412454 Active 2021 LIBBY MONTEZ [address] [place] [address], [address], [facility] 2 16:55:17 Cervico-o ccipital neuralgia 66939364 Active 2021 LIBBY MONTEZ [address] [place] [address], [address], [facility] 2 14:09:59 Deviated nasal septum 878230681 Active 2021 LIBBY MONTEZ [address] [place] [address], [address], [facility] 2 16:43:10 Wheezing 93602431 Active 2021 LIBBY MONTEZ [address] [place] [address], [address], [facility] 2 11:58:56 Nausea 409557353 Active 2022 LIBBY MONTEZ [address] [place] [address], [address], [facility] 3 11:47:04 Menopause Active 2022 LIBBY MONTEZ [address] [place] [address], [address], [facility] 3 10:58:45 Acne 53649315 Active 2022 LIBBY MONTEZ [address] [place] [address], [address], [facility] 3 11:08:06 Tinea pedis 4247650 Active 2022 LIBBY MONTEZ [address] [place] [address], [address], [facility] 3 11:13:56 Multiple benign melanocyt ic nevi 760888008 Active 2022 LIBBY MONTEZ [address] [place] [address], [address], [facility] 3 11:16:11 Degenerat lukasz lesion of articular cartilage of knee 760566273 Active 2022 LIBBY MONTEZ [address] [place] [address], [address], [facility] 3 15:25:10 Diverticu litis of colon 021368248 Active 2023 LIBBY MONTEZ [address] [place], [address], [facility] 4 11:16:42 Urinary incontine nce 791983412 Active 2023 LIBBY MONTEZ [address] [place], [address], [facility] 4 10:12:50 Dry eyes 205771241 Active 2023 LIBBY MONTEZ [address] [place], [address], [facility] 4 11:33:04 COVID-19 780392694 Active 2023 LIBBY MONTEZ [address] [place], [address], [facility] 4 09:55:13 Acute pharyngit is 961590460 Active 2023 LIBBY MONTEZ [address] [place] [address], [address], [facility] 4 14:07:08 Sore throat 170384564 Active 2023 LIBBY MONTEZ [address] [place] [address], [address], [facility] 4 14:08:03 Pain of left hip joint 624704470689 100 Active 2024 LIBBY MONTEZ [address] [place] [address], [address], [facility] 5 10:35:24 Tendiniti s of left gluteal tendon 251096975482 108 Active 2024 LIBBY MONTEZ [address] [place] [address], [address], [facility] 5 10:51:00 Fatigue 91845332 Active 2024 LIBBY MONTEZ [address] [place] [address], [address], [facility] 5 11:33:29 Headache disorder 270492417 Active 2024 LIBBY MONTEZ [address] [place] [address], [address], [facility] 5 11:36:06 Dizziness 902875079 Active 2024 LIBBY MONTEZ [address] [place], [address], [facility] 5 11:37:06 Muscle pain 06043246 Active 2024 LIBBY MONTEZ [address] [place], [address], [facility] 5 11:39:38 Finding of hand region 460622280 Active 2024 LIBBY MONTEZ [address] [place] [address], [address], [facility] 5 11:53:20 Jasson-B arr virus disease 541784244 Active 2024 LIBBY MONTEZ [address] [place] [address], [address], [facility] 5 15:36:09 Hypoglyce bety 502167534 Active 2024 LIBBY MONTEZ [address] [place] [address], [address], [facility] 5 12:46:22 Palpitati ons 64060950 Active 2024 LIBBY MONTEZ [address] [place] [address], [address], [facility] 5 12:50:23 Pyrexia of unknown origin 2029781 Active 2024 LIBBY MONTEZ [address] [place] [address], [address], [facility] 5 12:53:09 Pancreati c insuffici ency 01418921 Active 2024 LIBBY MONTEZ [address] [place] [address], [address], [facility] 5 12:55:04 Syncope symptom 465311491 Active 2024 LIBBY MONTEZ [address] [place] [address], [address], [facility] 5 13:03:52 Post-pran dial hypoglyce bety 964676001 Active 2024 LIBBY MONTEZ [address] [place], [address], [facility] 5 12:10:41 Pain of left shoulder joint 974569122799 29639 Active 2024 LIBBY MONTEZ [address] [place], [address], [facility] 5 10:40:12 Problem Notes None recorded. Medical Equipment None Reported. Allergies Allergen ID Allergen Name Allergen Category Reaction Reaction Severity Criticality Documentation Date Start Date Code Code System Note Provider Name and Address Organization Details Recorded Time 6112 naproxen medicatio n Not available Not available Not available 09/16/2022 7258 RxNorm Juliann Reagan [facility] 2 14:03:13 8173 tree nut food anaphylax is Not available [facility] 05/29/2024 Coleman Zelaya [facility] 4 09:52:29 8494 iodine medicatio n vomiting Not available Not available 09/16/2024 5933 RxNorm Annaamanda Sommer [facility] 4 13:57:37 9051 tramadol medicatio n Not available Not available high 04/23/2025 49894 RxNorm shalini tena ng SI LIBBY MONTEZ [address] [place] [address], [address], [facility] 5 11:35:01 9210 adhesive tape environme nt,medica tion Not available Not available Not available 06/17/2025 LIBBY MONTEZ [address] [place] [address], [address], [facility] 5 10:13:53 Medications Name Sig Start Date Stop Date Status Note LastModified by Organization Details LastModified Time cyclobenzap rine 10 mg tablet TAKE ONE TABLET BY MOUTH EVERY 8 HOURS NEEDED FOR MUSCLE SPASM 04/13 /2022 completed Not Available Not Available Not Available [...] completed Not Available Not Available Not Available FreeStyle Josr 3 Plus Sensor device active Not Available Not Available Not Available Vitals Date Recorded Body height Body mass index (BMI) Body weight Oxygen saturation Heart rate Systolic And Diastolic Provider Name and Address Organization Details Last Updated DateTime 5 165.1 cm 39.5 kg/m2 632290. 83 g 98 % 75 /min 128/76 mm[Hg] [facility] 5 09:32:44 Social History Question Answer Notes LastModified by Organizat ion Details LastModified Time Tobacco Smoking Status Former Smoker Not Available [facility] 09/15/2020 03:36:24 What Was The Date [...] mcg/0.25mL dose 1 completed Not Available [facility] 11/09/2022 14:44:14 Influenza, split virus, quadrivalent, preservative 0 completed Not Available [facility] 11/09/2022 14:44:14 COVID-19, mRNA, LNP-S, PF, 30 mcg/0.3 mL dose 1 completed Not Available [facility] 11/09/2022 14:44:14 COVID-19, mRNA, LNP-S, PF, 30 mcg/0.3 mL dose 1 completed Not Available [facility] 11/09/2022 14:44:14 Past Encounters Encounter ID Performer Location Encounter Start Date Encounter Closed Date Diagnosis/Indication Diagnosis SNOMED-CT Code Diagnosis ICD10 Code Diagnosis IMO Codes Diagnosis Note [id number] DO [facility] [address] [facility],[place] [address] 09/24/2025 09:24:48 09/24/2025 15:30:32 Depression screening 573833518 Z13.31 negative Hypoglycemia 574360600 E 16.2 47579 patient has aunt with genetic d/o causing pancreatic micro-tumo rs, has same symptoms, recommende d her specialist Menopause 770580372 N95. 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 44182733 setting up with endocrine Depressive disorder 3548 9007 F32.0 stable on medication Health Concerns Section Related Observation LastModified by Organization Detai ls LastModified Time None Recorded Concern Status LastModified by Organization Details LastModified Time None Recorded Payers Encounter Date Sequence Insurance Name Policy Number Policy Torrez Covered Member ID Torrez Member ID Guarantor Name 09/24/2025 1 [place]: [facility] Jaqueline Mary Ann [id number] Jaqueline Reese Notes Date Note Type Note Provider Name and Address Organization Details Recorded Time text/html ROS as noted in the HPI f/u Pancreas Specialist Appointment patient saw the pancreatic specialist in [place], having a repeat MRI without contrast with additional lab work and imagingrecommended referral to endo in [place] for better consult, saw Dr. Randall yesterday, the patient is getting some f/u lab work with him, but was not impressed with the visitdoes agree to the endo referral to change to [place] the patient hormone levels are stabilized, will start back HRT, got the okay from [place] the patient is otherwise improving slowly ?post COVID SYMPTOMS Per Pancreas specialist still having occasional bouts of the nausea and pre-fainting spellshad one since I saw her last time, was in a concert venue, very hot and crowded will f/u patient after her next f/u with [place] let me know when she gets scheduled with endo in [place] LIBBY MONTEZ [address] [facility], [place], [address], [place] [facility] 09/24/2025 10:10:23 OBGyn Episode No OBEpisode recorded.
--- OUTSIDE RECORDS SUMMARY | 2025-11-03 17:27 | XMS_ITS | Encounter Summary ---
Author Organization [facility] Address [address] [place] [address] Care Team Providers Care Title Clerk Name Role Phone Bryce Rolle MD Primary Care Provider Reason for Visit * Reason Onset Date Comments Referral Inquiry Ms. Vargas 09/23/2025 Encounter Details Date Type Department Care Team (Late Contact Info) Description 09/23/2025 Telephone [facility] [address] [address] Mane Leger MD [address] [place] [address] Referral Inquiry Ms. Vargas Social History Tobacco Use Types Packs/Day Years Used Date Smoking Tobacco: Never Assessed Comments Unknown Sex and Gender Information Value Date Recorded Sex Assigned at Female 06/03/2025 10:34 AM EDT Legal Sex Female 10:29 AM EDT Gender Identity Female 06/03/2025 10:34 AM EDT Sexual Orientation Not on file documented as of this encounter Plan of Treatment Upcoming Encounters Date Type Department Care Team (Late st Contact Info) Description 02/09/2026 2:30 PM EDT Office Visit [facility] [address] [facility] [address] [place] [address] Manuel Nowak MD [address] [place] [phone] In Person with Physician documented as of this encounter Visit Diagnoses Not on filedocumented in this encounter Care Teams Title Clerk Relationship Specialty Start Date End Date Bryce Rolle MD [address] [place] [address] PCP - General Internal Medicine 06/03/25 documented as of this encounter
--- OUTSIDE RECORDS SUMMARY | 2025-11-03 17:27 | XMS_ITS | Encounter Summary ---
Author Organization [facility] Address [address] [facility] [address] [place] [address] Phone Care Team Providers Care Incident Handler Name Role Phone Unknown, Unknown Primary Care Provider Bryce Franklin DO Unavailable Bryce Rolle DO Primary Care Provider [phone] Desiree Latif Primary Care Provider [phone] Encounter Details Date Type Department Care Team (Latest Contact Info) Description 11/09/2020 Transcribe Orders Virtual Department [address] [place] [address] Desiree Latif PA [address] [place] [address] Pain in right ankle and joints of [...] Description 11/19/2025 1:45 PM EST Office Visit [facility] [address] [place] [address] Desiree Latif PA [address] [place] [address] Estephania Montenegro, PT [address] [place] [address] 11/26/2025 1:45 PM EST Office Visit [facility] [address] [place] [address] Desiree Latif PA [address] [place] [address] Estephania Montenegro, PT [address] [place] [address] 12/03/2025 1:45 PM EST Office Visit [facility] [address] [address] Desiree Latif PA [address] [place] [address] Estephania Montenegro, PT [address] [place] [address] 12/10/2025 1:45 PM EST Office Visit [facility] [address] [address] Desiree Latif PA [address] [place] [address] Estephania Montenegro, PT [address] [place] [address] 12/17/2025 1:45 PM EST Office Visit [facility] [address] [address] Desiree Latif PA [address] [place] [address] Estephania Montenegro, PT [address] [place] [address] 12/24/2025 1:45 PM EST Office Visit [facility] [address] [place] [address] Desiree Latif PA [address] [place] [address] LanEstephania carreon, PT [address] [place] [address] 01/05/2026 3:40 PM EST Office Visit [facility] [address] [place] [address] Jakob Randall, DO [address] [place] [address] documented as of this encounter Visit Diagnoses Diagnosis Pain in right ankle and joints of right foot- Primary documented in this encounter Care Teams Incident Handler Relationship Specialty Start Date End Date Unknown, Unknown, PCP - General 11/09/20 12/14/21 Bryce Rolle DO [address] [place] [address] PCP - General Internal Medicine 12/15/21 03/10/25 Desiree Latif PA [address] [place] [address] PCP - General Physician Agricultural Services Director 03/11/25 Bryce Rolle DO [address] [place] [address] Insurance Assigned Provider 02/20/21 04/01/23 documented as of this encounter Additional Source Comments The information contained in this document represents components of the legal health record. It is not the complete legal health record.[facility]
--- OUTSIDE RECORDS SUMMARY | 2025-11-03 17:27 | XMS_ITS | Data Portability ---
Author Organization [facility], Telehealth Patient Home Address [address] [place] [address] Assessment No assessment recorded. Plan of Treatment Reminders Order Date Submit Date Provider Last Modified By Organization Details Last Modified Time Details Appointments None recorded. Lab CK (creatine kinase), total, serum 2024 025 [facility], [address] [place] [address], [address], 5 10:49:58 uric acid, serum or plasma 2024 025 [facility], [address] [place] [address], [address], 5 10:49:58 parvoviru s B19 igg+igm Ab, serum 2024 025 [facility], [address] [place] [address], [address], 5 10:49:58 culture, blood 2 2024 025 [facility], [address] [place] [address], [address], 5 11:55:45 hepatitis panel (A+B+C), acute, serum 2024 025 [facility], [address] [place] [address], [address], 5 13:04:14 HIV 1+2 AB + HIV 1 p24 Ag, qualitati ve immunoass ay, serum 2024 025 [facility], [address] [place] [address], [address], 5 13:04:14 RPR (rapid plasma reagin), serum 2024 025 [facility], [address] [place] [address], [address], 5 13:04:14 serotonin , blood 2024 025 [facility], [address] [place] [address], [address], 5 13:21:55 lipase, serum or plasma 2024 025 [facility], [address] [place] [address], [address], 5 13:04:13 amylase, serum or plasma 2024 025 [facility], [address] [place] [address], [address], 5 13:04:13 pancreati c elastase, stool 2024 025 [facility], [address] [place] [address], [address], 5 11:50:31 insulin, serum 2024 025 [facility], [address] [place] [address], [address], 5 13:04:14 C-peptide , serum 2024 025 [facility], [address] [place] [address], [address], 5 13:04:13 cortisol, free, 24-hour urine 2024 025 [facility], [address] [place] [address], [place], [address], 5 12:02:35 acth, plasma 2024 025 [facility], [address] [place] [address], [place], [address], 5 13:04:14 hemoglobi n A1c, QN, blood 2024 025 [facility], [address] [place] [address], [address], 5 11:47:53 Referral physical therapist referral 2024 025 [email or web address], [address] [place] [address], [place], [address], 5 08:33:52 endocrino logy referral - seeing Mane Leger MD office currently as well REFERRAL SUBMITTED TO SILVANA Roth 2024 025 [facility], [address] [place] [address], [address], 5 11:23:15 sleep medicine referral 2024 025 [facility], [address] [facility] [address], [address], 5 08:05:23 gastroent erologist referral - Patient Profile # [id number] 2024 025 [email or web address] Mane Leger MD, [address] [place] [address], [address], 5 12:29:48 Procedures None recorded. Surgeries None recorded. Imaging XR, shoulder, 2 or more view 08/05/ 2025 08/05/2 025 [facility], [address] [place], [address], 5 08:11:48 US, echocardi ogram 2024 025 [facility], [address] [place], [address], 5 08:21:19 holter monitor 2024 025 [facility], [address] [place], [address], 5 08:06:37 MRI, knee, w/o contrast - hx of scope of the knee, patient 2024 [facility], [address] [place], [address], 5 08:21:19 MRI, pancreas, w/wo contrast 2024 025 [facility], [address] [place], [address], 5 08:21:19 Medication Orders estradiol 1 mg tablet 2024 025 [facility][id number], [address] [place], [address], 5 09:40:57 progester one micronize d 100 mg capsule 2024 025 [facility][id number], [address] [place], [address], 5 09:40:56 lorazepam 0.5 mg tablet 2024 025 [email or web address] [facility]acy #[id number], [address] [place], [address], 13:31:45 Patient TargetsNo targets recorded. Patient InstructionsNo instructions recorded. Reason for Referral Die [employer]er Referral for Hypoglycemia persistent hypoglycemia, fam hx of pancreatic microtumors, overall work up normal Patient Profile # [id number] Referring Physician: Desiree Latif, Internal Medicine, Encounter Date: 05/21/2025 Sleep Medicine Referral for Fatigue ?sleep apnea, severe fatigue, snoring per partner Referring Physician: Desiree Latif, Internal Medicine, Encounter Date: 06/17/2025 Endocrinology Referral for H ypoglycemia seeing Mane Leger MD office currently as wellREFERRAL SUBMITTED TO SILVANA JONES Referring Physician: Desiree Latif, Internal Medicine, Encounter Date: 09/24/2025 Physical Therapist Referral for Pain of left shoulder joint L shoulder impingement, L shoulder pain Referring Physician: Desiree Latif, Internal Medicine, Encounter Date: 09/24/2025 Results Created Date Observation Date Name Description Value Unit Range Abnormal Flag Note LastModifiedBy Organization Detail LastModifiedTime 05/08/20 25 05/08/2025 MRI, pancr eas, w/wo contr ast No observ ation record ed. [facility] [address] [place], [address], 05/09/2025 08:58:17 05/08/20 25 05/08/2025 MRI, knee, w/o contr ast No observ ation record ed. [facility] (Medical Records) [address] [place], [address], 05/09/2025 11:31:30 05/08/2005/07/2025 US, echo ardio gram No observ ation record ed. [facility] (Medical Records) [address] [place], [address], 05/09/2025 08:58:28 05/13/20 25 05/13/2025 MRI, brain , w/wo contr ast No observ ation record ed. [facility] (Medical Records) [address] [place], [address], 05/13/2025 16:47:43 06/15/2005/07/2025 tico r monit or No observ ation record ed. [email or web address] [facility] (Medical Records) [address] [place], [address], 06/16/2025 08:58:29 07/16/2007/16/2025 US, duple x, venou s, upper extre mity No observ ation record ed. [email or web address] [facility] (Medical Records) [address] [place], [address], 07/16/2025 15:40:57 Result Notes None recorded. Problems Name Problem SNOMED Code Status Onset Date Resolution Date Notes Provider Name and Address Organization Details Recorded Time Anxiety 16670634 Active 2019 LIBBY MONTEZ [address] [place] [address], [address], [facility] 0 10:31:53 Depressiv e disorder 99791875 Active 2019 LIBBY MONTEZ [address] [place] [address], [address], [facility] 0 10:32:04 Facial swelling 441391488 Active 2021 LIBBY MONTEZ [address] [place] [address], [address], [facility] 2 12:30:06 Chronic sinusitis 21880193 Active 2021 LIBBY MONTEZ [address] [place] [address], [address], [facility] 2 10:25:49 Empyema of pleura 86591320 Active 2021 LIBBY MONTEZ [address] [place] [address], [address], [facility] 2 10:47:18 Pleurisy 689771431 Active 2021 LIBBY MONTEZ [address] [place], [address], [facility] 2 10:47:24 Costal chondriti s 18645726 Active 2021 LIBBY MONTEZ [address] [place], [address], [facility] 2 16:48:33 Infection of lacrimal gland 140311645 Active 2021 LIBBY MONTEZ [address] [place] [address], [address], [facility] 2 16:50:40 Candidias is of vagina 61993876 Active 2021 LIBBY MONTEZ [address] [place] [address], [address], [facility] 2 16:55:06 Pain of right knee joint 744871359607 100 Active 2021 LIBBY MONTEZ [address] [place] [address], [address], [facility] 5 12:49:48 Low back pain 273754602 Active 2021 LIBBY MONTEZ [address] [place] [address], [address], [facility] 2 16:59:41 Anand red spot 27226613 Active 2021 LIBBY MONTEZ [address] [place] [address], [address], [facility] 2 17:09:19 Chronic recurrent sinusitis 090117877 Active 2021 LIBBY MONTEZ [address] [place] [address], [address], [facility] 2 16:55:17 Cervico-o ccipital neuralgia 51555679 Active 2021 LIBBY MONTEZ [address] [place] [address], [address], [facility] 2 14:09:59 Deviated nasal septum 167350610 Active 2021 LIBBY MONTEZ [address] [place], [address], [facility] 2 16:43:10 Wheezing 42820543 Active 2021 LIBBY MONTEZ [address] [place], [address], [facility] 2 11:58:56 Nausea 133804301 Active 2022 LIBBY MONTEZ [address] [place] [address], [address], [facility] 3 11:47:04 Menopause Active 2022 LIBBY MONTEZ [address] [place], [address], [facility] 3 10:58:45 Acne 18622847 Active 2022 LIBBY MONTEZ [address] [place] [address], [address], [facility] 3 11:08:06 Tinea pedis 9541074 Active 2022 LIBBY MONTEZ [address] [place], [address], [facility] 3 11:13:56 Multiple benign melanocyt ic nevi 057902373 Active 2022 LIBBY MONTEZ [address] [place], [address], [facility] 3 11:16:11 Degenerat lukasz lesion of articular cartilage of knee 067028436 Active 2022 LIBBY MONTEZ [address] [place], [address], [facility] 3 15:25:10 Diverticu litis of colon 532115451 Active 2023 LIBBY MONTEZ [address] [place], [address], [facility] 4 11:16:42 Urinary incontine wie 192265982 Active 2023 LIBBY MONTEZ [address] [place], [address], [facility] 4 10:12:50 Dry eyes 796531128 Active 2023 LIBBY MONTEZ [address] [place] [address], [address], [facility] 4 11:33:04 COVID-19 860634515 Active 2023 LIBBY MONTEZ [address] [place] [address], [address], [facility] 4 09:55:13 Acute pharyngit is 161055031 Active 2023 LIBBY MONTEZ [address] [place] [address], [address], [facility] 4 14:07:08 Sore throat 122846629 Active 2023 LIBBY MONTEZ [address] [place] [address], [address], [facility] 4 14:08:03 Pain of left hip joint 738340524751 100 Active 2024 LIBBY MONTEZ [address] [place] [address], [address], [facility] 5 10:35:24 Tendiniti s of left gluteal tendon 834784443625 108 Active 2024 LIBBY MONTEZ [address] [place] [address], [address], [facility] 5 10:51:00 Fatigue 26393668 Active 2024 LIBBY MONTEZ [address] [place] [address], [address], [facility] 5 11:33:29 Headache disorder 788175094 Active 2024 LIBBY MONTEZ [address] [place], [address], [facility] 5 11:36:06 Dizziness 819915560 Active 2024 LIBBY MONTEZ [address] [place], [address], [facility] 5 11:37:06 Muscle pain 30964558 Active 2024 LIBBY MONTEZ [address] [place] [address], [address], [facility] 5 11:39:38 Finding of hand region 759700454 Active 2024 LIBBY MONTEZ [address] [place] [address], [address], [facility] 5 11:53:20 Jasson-B arr virus disease 681641216 Active 2024 LIBBY MONTEZ [address] [place] [address], [address], [facility] 5 15:36:09 Hypoglyce bety 049112221 Active 2024 LIBBY MONTEZ [address] [place] [address], [address], [facility] 5 12:46:22 Palpitati ons 57016893 Active 2024 LIBBY MONTEZ [address] [place] [address], [address], [facility] 5 12:50:23 Pyrexia of unknown origin 0438969 Active 2024 LIBBY MONTEZ [address] [place] [address], [address], [facility] 5 12:53:09 Pancreati c insuffici ency 74260638 Active 2024 LIBBY MONTEZ [address] [place] [address], [address], [facility] 5 12:55:04 Syncope symptom 767431420 Active 2024 LIBYB MONTEZ [address] [place], [address], [facility] 5 13:03:52 Post-pran dial hypoglyce bety 550399901 Active 2024 LIBBY MONTEZ [address] [place], [address], [facility] 5 12:10:41 Pain of left shoulder joint 083635572780 66140 Active 2024 LIBBY MONTEZ [address] [place], [address], [facility] 5 10:40:12 Problem Notes None recorded. Medical Equipment None Reported. Allergies Allergen ID Allergen Name Allergen Category Reaction Reaction Severity Criticality Documentation Date Start Date Code Code System Note Provider Name and Address Organization Details Recorded Time 6112 naproxen medicatio n Not available Not available Not available 09/16/2022 7258 RxNorm Juliann Reagan [facility] 2 14:03:13 8173 tree nut food anaphylax is Not available high 05/29/2024 [facility] 09:52:29 8494 iodine medicatio n vomiting Not available Not available 09/16/2024 5933 [facility] 4 13:57:37 9051 tramadol medicatio n Not available Not available high 04/23/2025 70809 RxNorm faizan an SI LIBBY MONTEZ [address] [place], [address], [facility] 5 11:35:01 9210 adhesive tape environme nt,medica tion Not available Not available Not available 06/17/2025 LIBBY MONTEZ [address] [place], [address], [facility] 5 10:13:53 Medications Name Sig [...] (BMI) Body weight Heart rate Oxygen saturation Systolic And Diastolic Provider Name and Address Organization Details Last Updated DateTime 5 165.1 cm 37.1 kg/m2 050312. 1 g 70 /min 98 % 110/64 mm[Hg] Hailey Huizar [facility] 5 12:33:09 Date Recorded Body height Provider Name an d Address Organization Details Last Updated DateTime 05/21/2025 165.1 cm Anna Kemal [facility] 05/21/2025 11:37:17 Date Recorded Body height Body mass index (BMI) Body weight Heart rate Oxygen saturation Systolic And Diastolic Provider Name and Address Organization Details Last Updated DateTime 165.1 cm 38.5 kg/m2 520836. 63 g 65 /min 97 % 136/88 mm[Hg] Anna Sommer [facility] 5 10:04:27 Date Recorded Body height Body mass index (BMI) Body weight Oxygen saturation Heart rate Systolic And Diastolic Provider Name and Address Organization Details Last Updated DateTime 5 165.1 cm 39.5 kg/m2 746525. 83 g 98 % 75 /min 128/76 mm[Hg] KOFI CASTANEDA [facility] 09:32:44 Social History Question Answer Notes LastModified by Organizat ion Details LastModified Time Tobacco Smoking Status Former Smoker Not Available [facility] 09/15/2020 03:36:24 What Was The [...] Immunizations Vaccine Type Date Status Note Provider Scott basurto and Address Organization Details Recorded Time COVID-19, mRNA, LNP-S, PF, 100 mcg/0.5mL dose or 50 mcg/0.25mL dose 1 completed Not Available [facility] 11/09/2022 14:44:14 Influenza, split virus, quadrivalent, preservative 0 completed Not Available [facility] 11/09/2022 14:44:14 COVID-19, mRNA, LNP-S, PF, 30 mcg/0.3 mL dose 1 completed Not Available [facility] 11/09/2022 14:44:14 COVID-19, mRNA, LNP-S, PF, 30 mcg/0.3 mL dose 1 completed Not Available [facility] 11/09/2022 14:44:14 Past Encounters Encounter ID Performer Location Encounter Start Date Encounter Closed Date Diagnosis/Indication Diagnosis SNOMED-CT Code Diagnosis ICD10 Code Diagnosis IMO Codes Diagnosis Note [id number] Bryce Rolle [facility] [address] [place] [address], [place] [address] 06/17/2020 09:11:31 06/17/2020 09:41:43 Screening mammography 80455258 Z12.31 needs a mammogram scheduled Gynecologi c examination 78116566 Z01.419 needs a pap performed, sent out to [facility] Abdominal pain 67592982 R10.9 will check to see if she to has a positive EBV antigen [id number] Bryce Rolle [facility] [address] [facility], [place] [address] 07/17/2020 10:07:16 07/17/2020 10:37:24 Premenopausal amenorrhea 25098493 N91.2 will check FSH and see if she is in premenopau se Anxiety 65332124 F41.9 will try on sertraline and see if she has any benefit with it will let me know if she needs an increased dosage Hypertensive disorder 38 702466 I10 normally really good very stressed today will monitor for it [id number] Bryce Rolle [facility] [address] [place] [address],[place] [address] 10/14/2020 08:13:27 10/14/2020 10:45:13 Anxiety 15697633 F41.9 doing much better on the zoloft, feeling much better with decreased symptoms Depressive disorder 3548 9007 F32.9 stable now on medication [id number] Bryce Rolle [facility] [address] [facility] [address],[place] [address] 11/09/2020 09:14:42 11/09/2020 10:44:44 Pain of right ankle joint 3440209160 6993527 M25.571 will set up for XR to r/o fracture, from the presentati on and symptoms possible Grade 3 sprain will fu after XR, discussed order for crutches and brace Anxiety 75944873 F41.9 doing much better on the zoloft, feeling much better with decreased symptoms Depressive disorder 3548 9007 F32.9 stable now on medication [id number] Bryce Rolle [facility] [address] [facility] [address],[place] [address] 04/21/2021 13:58:17 04/21/2021 14:22:05 Pain of left temporomandibular joint 9956820689 4445066 M26.622 left TMJ will treat with MSK relaxer and anti-infla mmatory [id number] Bryce Rolle [facility] [address] [facility],[place] [address] 06/04/2021 13:37:06 06/04/2021 14:06:37 Depressive disorder 78546550 F32.9 [id number] Bryce Rolle [facility] [address] [facility],[place] [address] 07/07/2021 13:42:30 07/07/2021 14:22:24 Depressive disorder 91817453 F32.9 seems to be ok with feeling down Anxiety 47141320 F41.9 feeling overwhelme d [id number] Bryce Rolle [facility] [address] [facility] [address],[place] [address] 09/22/2021 09:45:13 09/22/2021 12:12:40 Allergy to nut 65262141 Z91.018 needs refill Active or passive immunization 766869419 Z23 stablenorm al reaction to vaccineboo ster shot with moderna Anxiety 00578497 F41.1 doing much better on the zoloft, feeling much better with decreased symptoms Depressive disorder 3548 9007 F32.0 stable now on medication [id number] Bryce Rolle [facility] [address] [facility],[place] [address] 11/23/2021 08:09:25 11/23/2021 17:24:33 Pain of right hand 1279975217 59650 M79.641 will fu with repeat XR to r/o fracture [id number] Bryce Rolle [facility] [address] [facility],[place] [address] 06/08/2022 10:33:52 06/08/2022 16:45:19 Anxiety 21950053 F41.1 stable Depressive disorder 4648 4397 F32.0 stable on medication [id number] Bryce Rolle [facility] [address] [facility],[place] [address] 08/31/2022 09:12:34 08/31/2022 11:53:29 Chronic sinusitis 74415781 J32.[address] since her XR is negativewi ll start on Cipro 500 mg BID for 7 days [id number] [facility] [address] [facility],[place] [employer] [facility] [address] 09/07/2022 16:09:02 09/09/2022 09:05:07 Infection of lacrimal gland 188119265 H04.012 will start on ofloxacin and warm compresses Pleurisy 265094042 R09.1 will start on short course of colchicine Candidiasis of vagina 72 283786 B37.31 will restart Pain of ri ght knee joint 2735292607 80221 M25.561 will f/u with XR right knee for evaluation after injury Low back pain 971563292 M54.59 will f/u with XR low back for evaluation after injury Anand red spot 60320158 H35.89 most likely related to vaccinenew reports released confirming this [id number] Bryce Rolle [facility] [address] [facility],[place] [address] 09/16/2022 14:00:38 09/19/2022 09:50:41 Cervico-occipital neuralgia 76750698 M54.81 will start on gabapentin and prednisone Chronic sinusitis 015385 [address] is happening on Monday Facial swelling 63958918 6 R22.0 will readjust her pred taperstart on gabapentin and budesonide spray [id number] Bryce Rolle [facility] [address] [facility],[place] [address] 11/08/2022 11:28:28 11/08/2022 13:14:29 Wheezing 74706055 R06.2 will fu with XR chest for possible pna vs costal chondritis [id number] Bryce Rolle [facility] [address] [facility],[place] [address] 08/01/2023 10:26:45 08/01/2023 11:30:57 Anxiety 59433145 F41.1 stable Depressive disorder 3548 9007 F32.0 stable on medication Menopause 407711913 N95. 1 will set up with HRT Acne 11750742 L70.8 will start back on clindamyci n Tinea pedis 7123934 B35. 3 will set up with oral medication Multiple b enign melanocytic nevi 523546126 D22.9 will set up with derm Pain of ri ght knee joint 5102374736 31141 M25.561 needs more imaging will need MRI after [id number] Bryce Rolle [facility] [address] [facility], [place] [address] 05/29/2024 09:41:43 05/29/2024 12:05:28 Depression screening 955528454 Z13.31 negative Depressive disorder 3548 9007 F32.0 stable on medication Urinary incontinence 165 525363 N39.3 will set up with urine sample and US bladder [id number] Bryce Rolle [facility] [address] [facility],[place] [address] 09/16/2024 13:48:13 09/16/2024 15:42:16 Acute pharyngitis 343078887 J02.8 start on prednisone Sore throat 057213197 J0 2.8 as needed [id number] Bryce Rolle [facility] [address] [facility],[place] [address] 01/31/2025 10:11:21 01/31/2025 14:20:26 Low back pain 002169939 M54.59 will f/u with XR low back for evaluation after injury Pain of le ft hip joint 3573596056 24494 M25.552 will set up with the XR hip Pain of ri ght ankle joint 1212806120 8878984 M25.571 will set up for XR to r/o fracture, from the presentati on and symptoms possible Grade 3 sprain will fu after XR, discussed order for crutches and brace [id number] Bryce Rolle [facility] [address] [facility],[place] [address] 04/23/2025 10:59:57 04/23/2025 13:58:57 Menopause 730717744 N95.1 continue on treatment Depression screening 171 855756 Z13.31 0008367 negative History of vaccination 223876619 Z92.29 43580725 recommende d Tdap, Shingles, Fatigue 78694862 R53.83 7499465 recommende d full work up Menopause present [id number] 006 Z78.0 19400 will set up with HRT Headache disorder 613614 009 G44.89 1215945 will set up with lab work Dizziness [id number] R42 81133 will set up with lab work Muscle pain 61253289 M79 .10 10229 will fu with lab work Finding of hand region 370260979 R25.1 70444132 ?neuro-deg enerative disorder [id number] Bryce Rolle [facility] Internal Medicine [address] [facility],[place] [address] 04/30/2025 11:49:53 04/30/2025 13:45:34 Dizziness 739798332 R42 32021 continues Hypoglycemia 997414596 E 16.2 23870 additional work up for hypoglycem ia Pain of ri ght knee joint 2818352971 58133 M25.561 254939 recommende d MRI knee, f/u septic joint after recent athroscope Palpitations 34024179 R0 0.2 04338 adding on US echo, r/o endocardit is or other infectious /inflammat ory process Pyrexia of unknown origin 8720375 R50.9 14426 set up with additional blood culture, hep panel, HIV panel (less likely but could have been exposed to something Pancreatic insufficiency 81297767 K86.89 12705 recommenda tion and adding on assessment for pancreatit is Syncope symptom 00398444 5 R55 [id number] adding holter, r/o sick sinus syndrome or other arrhythmia [id number] Bryce Rolle [facility] Internal Medicine [address] [facility],[place] [address] 05/21/2025 11:35:57 05/21/2025 15:03:41 Hypoglycemia 192176232 E16.2 50548 patient has aunt with genetic d/o causing pancreatic micro-tumo rs, has same symptoms, recommende d her specialist Post-prand ial hypoglycemia 118464984 E16.1 62033315 setting up with endocrine Jasson-Ba rr virus disease 957151102 B27.90 80701 Syncope symptom 05807292 5 R55 5763345982 adding holter, r/o sick sinus syndrome or other arrhythmia Pyrexia of unknown origin 3921531 R50.9 73264 set up with additional blood culture, hep panel, HIV panel (less likely but could have been exposed to something [id number] Bryce Rolle [facility] Internal Medicine [address] [facility],[place] [address] 06/17/2025 09:56:00 06/17/2025 11:13:09 Depression screening 835817761 Z13.31 negative Fatigue 59810140 R53.83 5850854 recommende d full work up Muscle pain 19176584 M79 .10 96505 adding uric acid and parovirusC K check all other labs normal Intrauteri ne contraceptive device in situ 801078045 Z97.5 671153 needs to have it removed, is about 5 to 6 years out of date?immun e reaction Pain of le ft shoulder joint 8472710676 3830683 M25.512 666525 will set up [id number] Bryce Rolle [facility] Internal Medicine [address] [facility] [address] 08/05/2025 15:38:42 08/05/2025 16:06:09 Depression screening 848474957 Z13.31 negative Post-prand ial hypoglycemia 805086720 E16.1 43845958 setting up with endocrine Hypoglycemia 137333502 E 16.2 08716 patient has aunt with genetic d/o causing pancreatic micro-tumo rs, has same symptoms, recommende d her specialist [id number] [facility] [address] [facility],[place] [address] 09/24/2025 09:24:48 09/24/2025 15:30:32 Depression screening 829004765 Z13.31 negative Hypoglycemia 352063628 E 16.2 54725 patient has aunt with genetic d/o causing pancreatic micro-tumo rs, has same symptoms, recommende d her specialist Menopause 357173873 N95. 1 restart treatment Pain of le ft shoulder joint 1263401209 8149092 M25.512 268279 will set up PT Post-prand ial hypoglycemia 932512448 E16.1 15516535 setting up with endocrine Depressive disorder 3548 9007 F32.0 stable on medication Health Concerns Section Related Observation LastModified by Organization Detai ls LastModified Time None Recorded Concern Status LastModified by Organization Details LastModified Time None Recorded Advance Directives Directive None Recorded Payers Insurance Date Sequence Insurance Name Policy Number Policy Torrez Covered Member ID Torrez Member ID Guarantor Name 09/18/2025 1 [facility] ([place]) [id number] Jaqueline Reese [id number] Jaqueline Reese 09/21/2025 1 [place] [facility] Jaqueline Reese [id number] Jaqueline Reese Notes Date Note Type Note Provider Name and Address Organization Details Recorded Time 06/18/202 5 text/html ROS as noted in the HPI f/u hospital d/c Total time of appointment was 50 minutes after reviewing patient's symptoms, coming up with a plan for diagnosis, possible d/d/x and prognosis the patient reports that she ended up in the hospital in [place] due to syncopal episode and high fever [...] pt is on sertraline LIBBY MONTEZ [address] [place], [address], [facility] 04/30/2025 13:33:52 5 text/html ROS as noted in the HPI f/u blood work and imaging the patient and I have been working on figuring out what is causing her systemsthe patient reports that she has been doing well on the anti-viral medication the patient reports that she was thinking about seeing GI (specific doctor her aunt saw who has rare condition causing micro-tumors) will send out for consult with current work up so far put in the endocrine f/u as well prior to this apptpt also had normal MRI of her pancreas and MRI of her brain the patient reports that she is getting really low lows, drops to 50 after eating, no matter what she eats she gets the drops, if she is eating throughout the day, higher protein the patient and I discussed stopping her medication to flush everything out and see if it is a new reaction to something given taper instructions we will f/u with pt in a few weeks LIBBY MONTEZ [address] [place], [address], [facility] Internal Medicine 05/21/2025 13:01:37 5 text/html ROS as noted in the HPI 1 mos f/u the patient reports that her f/u with the pancreatic specialistthe patient reports that she is having more symptoms with poor sleepher holter was normal for as long as should could wear it (has an adhesive reaction) the patient reports that she is still getting the significantly low blood sugarthe patient reports that she got a soon appt with the pancreatic specialist to evaluate her, her aunt has the hx of micro-tumors of the pancrease causing issues, and her sugar is hard to control the patient is having abdominal cramping, upper quadrantsthe patient states it feels gas pain, but no other symptoms the patient will need new endocrine referral, will look into a place at which is where the pancreatic specialist is to have them also consultthe patient other endo referral go pushed to Nov earliest no change after stopping her meds, same symptoms, we can restart on the sertralinethe pt given instructions the patient is having pain in she shoulder and arm, since she gave blood, same armleft arm, right arm dominant needs IUD removed having joint pain, shoulder, severe, loss of ROM and pos empty can test and hawkin'srecommended additional check and XR shoulder setting up for STAT sleep referral fax number [phone] (send all results and imaging) LIBBY MONTEZ [address] [place] [address], [place], [address], [facility] Internal Medicine 06/17/2025 10:51:30 5 text/html ROS as noted in the HPI [...] was previouslydidn't see the pancreatic specialist latoya gallegot coming up the patient was able to get her IUD out the patient reports that it did notably improve after IUD removal the josr is still being very helpful LIBBY MONTEZ [address] [place], [address], [facility] 08/05/2025 16:26:48 5 text/html ROS as noted in the HPI f/u Pancreas Specialist Appointment patient saw the pancreatic specialist in [place], having a repeat MRI without contrast with additional lab work and imagingrecommended referral to endo in [place] for better consult, saw Dr. Randall yesterday, the patient is getting some f/u lab work with him, but was not impressed with the visitdoes agree to the endo referral to change to [place] the patient hormone levels are stabilized, will start back HRT, got the okay from [place] the patient is otherwise improving slowly ?post COVID SYMPTOMS Per Pancreas specialist still having occasional bouts of the nausea and pre-fainting spellshad one since I saw her last time, was in a concert venue, very hot and crowded will f/u patient after her next f/u with Shawn let me know when she gets scheduled with endo in [place] LIBBY MONTEZ [address] [place], [address], [facility] Internal Medicine 09/24/2025 10:10:23 OBGyn Episode No OBEpisode recorded.
== END 2025-11-03 13:58 | disposition home or self-care (01) ==
LOC: HO.MAMMO 13:57
PROVIDERS: Visit Provider Internal Medicine
DX: Z12.31 Encounter for screening mammogram for malignant neoplasm of breast (principal)
CPT/HCPCS: 77063; 77067

== ENCOUNTER → 2025-11-03 14:15 | Outpatient (BNV) | payer MEDICAID, SELFPAY | PROVIDERS: Visit Provider Internal Medicine | DX: Z12.31 Encounter for screening mammogram for malignant neoplasm of breast (principal) | CPT/HCPCS: 77063; 77067 ==